=== PATIENT | female | born 1965 | race African-American/Black ===

== ENCOUNTER 2018-12-24 11:15 | Inpatient (IN) ==
[2018-12-24] MEDS ORDERED: ASPIRIN 325 MG TABLET PO STA (11:52)
[2018-12-24] MEDS ORDERED: FUROSEMIDE 100 MG/10 ML VIAL IV STA (11:52)
[2018-12-24] MEDS ORDERED: NITROGLYCERIN 2% OINT 1 INCH/GM PACK TOP STA (11:52)
[2018-12-24] MEDS ORDERED: ONDANSETRON 4 MG/2 ML VIAL IV STA (11:52)
[2018-12-24] MEDS ORDERED: hydrALAZINE 20 MG/1 ML VIAL IV STA (11:52)
[2018-12-24] MEDS ORDERED: methylPREDNISolone SOD SUC 125 MG/2 ML VIAL IV STA (11:52)
[2018-12-24] MEDS ORDERED: ALBUTEROL 2.5 MG/3 ML NEB RESP TX SCH (12:00)
[2018-12-24 12:16] LABS: Basophils % 0.1 % (0.0-0.8); Eosinophils # 0.1 10*3/uL (0.0-0.87); Eosinophils % 1.3 % (0.00-10.9); Hematocrit 33.7 VOL% (35.7-47.0); Hemoglobin 10.3 GM/DL (12.0-16.0); Immature Granulocytes % 0.3 %; Immature Granulocytes Absolute 0.02 #; Lymphocytes # 1.2 10*3/uL (1.4-4.0); Lymphocytes % 17.3 % (21.3-54.2); Mean Corpuscular HGB Conc 30.6 GM/DL (32-36); Mean Corpuscular Volume 104.3 FL (87-102); Mean Platelet Volume 12.3 FL (9.6-12.0); Monocytes % 8.7 % (1.7-12.7); Neutrophils % 72.3 % (38.7-73.9); Red Blood Count 3.23 MC/CUMM (3.8-5.5); Red Cell Distribution Width 12.7 % (9.3-17.3)
[2018-12-24 12:20] LABS: Platelet Count 97 T/CUMM (130-400)
[2018-12-24 12:27] LABS: PT Patient Result 10.7 SECS
[2018-12-24 12:38] LABS: Albumin 2.1 G/DL (3.4-5.0); Bilirubin,Total 0.5 MG/DL (0.2-1.0); Calcium 8.3 MG/DL (8.5-10.1); Total Protein 5.9 G/DL (6.4-8.3)
[2018-12-24 12:39] LABS: Anisocytosis 1+; Platelet Estimate Decreased
[2018-12-24 13:10] LABS: Apearance,Urine CLEAR (Clear); Bilirubin,Urine Negative (Negative); Blood, Urine Moderate mg/dL (Negative); Glucose,Urine (UA) Negative (Negative); Ketones,Urine Negative (Negative); Mucus,Urine Occasional /LPF (Occasional); Nitrite,Urine Negative (Negative); Protein,Urine >=500 MG/DL; RBC,Urine 33 /HPF (0-4); Squamous Epithelial Cell,Urine Occasional /HPF (0-10); Urine Color Yellow (Yellow); Urine Specific Gravity 1.014 (1.001-1.035); Urine Urobilinogen < 2.0 EU/DL (0.2-1.0)
[2018-12-24 13:18] LABS: Barbiturates Screen,Urine Negative (Negative); Benzodiazepines Screen,Urine Negative (Negative); Cannabinoid Screen,Urine Negative (Negative); Opiate Screen,Urine Negative (Negative); Phencyclidine Screen,Urine Negative (Negative)
[2018-12-24] MEDS ORDERED: niCARdipine INJ 25 MG in SODIUM CHLORIDE 0.9% 240 ML IV PRN (13:21)
[2018-12-24] MEDS ORDERED: niCARdipine 25 MG/10 ML VIAL IV ONE (13:28)
[2018-12-24] MEDS ORDERED: ONDANSETRON 4 MG/2 ML VIAL IV PRN (15:03)
[2018-12-24] MEDS ORDERED: SODIUM CHLORIDE 0.9% 1,000 ML IV SCH (15:30)
[2018-12-24] MEDS: amLODIPine 10 MG TABLET PO SCH (17:25)
[2018-12-24] MEDS: LISINOPRIL/HCTZ 20-25 MG TABLET PO SCH (18:11)
[2018-12-24] MEDS: ASPIRIN EC 81 MG TABLET PO SCH (18:11)
[2018-12-24] MEDS: POTASSIUM CHLORIDE 20 MEQ TABLET PO SCH (18:11)
[2018-12-24] MEDS: CARVEDILOL 25 MG TABLET PO SCH (20:08)
[2018-12-24] MEDS: ENOXAPARIN 40 MG/0.4 ML SYRINGE SUBCUT SCH (22:02)
[2018-12-24] MEDS: ALBUTEROL/IPRATROPIUM 3 ML NEB RESP TX PRN (22:21)
[2018-12-25 03:16] LABS: Hematocrit 32.2 VOL% (35.7-47.0); Hemoglobin 9.8 GM/DL (12.0-16.0); Immature Granulocytes % 0.6 %; Immature Granulocytes Absolute 0.04 #; Lymphocytes # 0.7 10*3/uL (1.4-4.0); Lymphocytes % 11.6 % (21.3-54.2); Mean Corpuscular HGB Conc 30.4 GM/DL (32-36); Mean Corpuscular Volume 104.5 FL (87-102); Mean Platelet Volume 12.5 FL (9.6-12.0); Monocytes % 3.6 % (1.7-12.7); Neutrophils % 84.2 % (38.7-73.9); Platelet Count 105 T/CUMM (130-400); Red Blood Count 3.08 MC/CUMM (3.8-5.5); Red Cell Distribution Width 12.8 % (9.3-17.3); White Blood Count 6.4 T/CUMM (4-12)
[2018-12-25 08:28] LABS: Calcium 8.5 MG/DL (8.5-10.1); Osmolality,Calculated 292.1 MOS/KG (273-304)
[2018-12-25] MEDS: LISINOPRIL/HCTZ 20-25 MG TABLET PO SCH (09:42)
[2018-12-25] MEDS: POTASSIUM CHLORIDE 20 MEQ TABLET PO SCH (09:42)
[2018-12-25] MEDS: ASPIRIN EC 81 MG TABLET PO SCH (09:43)
[2018-12-25] MEDS: amLODIPine 10 MG TABLET PO SCH (09:43)
[2018-12-25] MEDS: CARVEDILOL 25 MG TABLET PO SCH ×2 (09:43→18:08)
[2018-12-25 15:28] LABS: Protein/Creatinine Ratio,Urine 5.4 RATIO
[2018-12-25] MEDS: ENOXAPARIN 40 MG/0.4 ML SYRINGE SUBCUT SCH (21:43)
[2018-12-25] MEDS: ALBUTEROL/IPRATROPIUM 3 ML NEB RESP TX PRN (22:50)
[2018-12-26] MEDS: POTASSIUM CHLORIDE 20 MEQ TABLET PO SCH (09:06)
[2018-12-26] MEDS: ASPIRIN EC 81 MG TABLET PO SCH (09:06)
[2018-12-26] MEDS: amLODIPine 10 MG TABLET PO SCH (09:06)
[2018-12-26] MEDS: CARVEDILOL 25 MG TABLET PO SCH (09:06)
[2018-12-26] MEDS: LISINOPRIL/HCTZ 20-25 MG TABLET PO SCH (09:12)
[2018-12-26 10:33] LABS: Calcium 8.2 MG/DL (8.5-10.1); Osmolality,Calculated 294.8 MOS/KG (273-304)
[2018-12-26 14:12] LABS: % Iron Saturation 20.2 % (18-50); Ferritin 132.3 ng/ml (8-252)
[2018-12-26] MEDS: FUROSEMIDE 40 MG/4 ML VIAL IV SCH (14:37)
[2018-12-26] MEDS: ENOXAPARIN 40 MG/0.4 ML SYRINGE SUBCUT SCH (20:56)
[2018-12-27 06:01] LABS: Basophils % 0.3 % (0.0-0.8); Eosinophils # 0.1 10*3/uL (0.0-0.87); Eosinophils % 2.3 % (0.00-10.9); Hematocrit 32.2 VOL% (35.7-47.0); Hemoglobin 9.9 GM/DL (12.0-16.0); Immature Granulocytes % 0.5 %; Immature Granulocytes Absolute 0.03 #; Lymphocytes # 2.4 10*3/uL (1.4-4.0); Lymphocytes % 38.9 % (21.3-54.2); Mean Corpuscular HGB Conc 30.7 GM/DL (32-36); Mean Corpuscular Volume 105.6 FL (87-102); Mean Platelet Volume 13.1 FL (9.6-12.0); Monocytes % 10.1 % (1.7-12.7); Neutrophils % 47.9 % (38.7-73.9); Platelet Count 93 T/CUMM (130-400); Red Blood Count 3.05 MC/CUMM (3.8-5.5); Red Cell Distribution Width 12.9 % (9.3-17.3); White Blood Count 6.1 T/CUMM (4-12)
[2018-12-27 06:33] LABS: Calcium 8.6 MG/DL (8.5-10.1); Osmolality,Calculated 291.8 MOS/KG (273-304)
[2018-12-27 06:38] LABS: Platelet Estimate Decreased
[2018-12-27 07:22] LABS: Folate 5.4 NG/ML (5.4-24.0)
[2018-12-27] MEDS: FUROSEMIDE 40 MG/4 ML VIAL IV SCH (08:37)
[2018-12-27] MEDS: ASPIRIN EC 81 MG TABLET PO SCH (08:37)
[2018-12-27] MEDS: amLODIPine 10 MG TABLET PO SCH (08:38)
[2018-12-27] MEDS: POTASSIUM CHLORIDE 20 MEQ TABLET PO SCH (08:38)
[2018-12-27 08:40] VITALS: BP 192/92
== END 2018-12-27 11:47 | disposition home or self-care (01) | DRG 304 ==
LOC: EDUNIT# → EDBD → N.ED 11:15 → SUATTDRO 15:03 → N.EDINP 17:24 → N.ICU 17:27 → N.TELES 12-25 15:09
PROVIDERS: ADMIT Internal Medicine Geriatric Medicine; ATTEND Internal Medicine

== ENCOUNTER 2019-06-24 21:40 | Inpatient (IN) ==
[2019-06-24] MEDS ORDERED: ONDANSETRON 4 MG/2 ML VIAL IV STA (22:13)
[2019-06-24] MEDS ORDERED: methylPREDNISolone SOD SUC 125 MG/2 ML VIAL IV STA (22:13)
[2019-06-24] MEDS ORDERED: FUROSEMIDE 100 MG/10 ML VIAL IV STA (22:13)
[2019-06-24] MEDS ORDERED: NITROGLYCERIN 2% OINT 1 INCH/GM PACK TOP STA (22:13)
[2019-06-24] MEDS ORDERED: ASPIRIN 325 MG TABLET PO STA (22:13)
[2019-06-24] MEDS ORDERED: hydrALAZINE 20 MG/1 ML VIAL IV STA (22:13)
[2019-06-24] MEDS ORDERED: ALBUTEROL/IPRATROPIUM 3 ML NEB RESP TX STA (22:13)
[2019-06-24 22:42] LABS: Basophils % 0.3 % (0.0-0.8); Eosinophils # 0.2 10*3/uL (0.0-0.87); Eosinophils % 2.2 % (0.00-10.9); Hematocrit 29.9 VOL% (35.7-47.0); Immature Granulocytes % 0.3 %; Immature Granulocytes Absolute 0.02 #; Lymphocytes % 28.5 % (21.3-54.2); Mean Corpuscular HGB Conc 30.1 GM/DL (32-36); Mean Corpuscular Volume 106.4 FL (87-102); Mean Platelet Volume 12.4 FL (9.6-12.0); Monocytes % 6.1 % (1.7-12.7); Neutrophils % 62.6 % (38.7-73.9); Red Blood Count 2.81 MC/CUMM (3.8-5.5); Red Cell Distribution Width 14.2 % (9.3-17.3); White Blood Count 6.9 T/CUMM (4-12)
[2019-06-24 22:42] LABS: ABG HCO3 20.3 MMOL/L (20-26); ABG Oxygen Saturation 97.9 % (95-100); ABG PCO2 32.4 MM HG (35-48); ABG PH 7.383 (7.35-7.45); ABG TCO2 17.7 MMOL/L (23-27); Allen Test Positive
[2019-06-24 22:45] LABS: Platelet Count 97 T/CUMM (130-400)
[2019-06-24 22:49] LABS: INR 1.1; PT Patient Result 11.6 SECS (9.6-12.2)
[2019-06-24 23:03] LABS: Alanine Aminotransferase 28 U/L (13-56); Albumin 1.6 G/DL (3.4-5.0); Alkaline Phosphatase 89 U/L (45-117); Aspartate Amino Transferase 43 U/L (0-37); Bilirubin,Total < 0.39 MG/DL (0.2-1.0); Blood Urea Nitrogen 58 MG/DL (7-18); Estimated Glom Filtration Rate 19 ML/MIN; Glucose 95 MG/DL (74-106); Osmolality,Calculated 301.8 MOS/KG (273-304); Total Protein 6.2 G/DL (6.4-8.3)
[2019-06-24 23:18] LABS: Hypochromasia 1+; Platelet Estimate Adequate; Polychromasia Few
[2019-06-24 23:41] LABS: Apearance,Urine CLEAR (Clear); Bacteria,Urine Occasional /HPF (Few); Bilirubin,Urine Negative (Negative); Blood, Urine Moderate mg/dL (Negative); Glucose,Urine (UA) Negative (Negative); Hyaline Casts,Urine 3 /LPF (0-3); Ketones,Urine Negative (Negative); Mucus,Urine Occasional /LPF (Occasional); Nitrite,Urine Negative (Negative); Protein,Urine >=500 MG/DL; RBC,Urine 57 /HPF (0-4); Squamous Epithelial Cell,Urine Occasional /HPF (0-10); Urine Color Yellow (Yellow); Urine Specific Gravity 1.012 (1.001-1.035); Urine Urobilinogen < 2.0 EU/DL (0.2-1.0); WBC,Urine 3 /HPF (0-6)
[2019-06-24 23:44] LABS: Barbiturates Screen,Urine Negative (Negative); Benzodiazepines Screen,Urine Negative (Negative); Cannabinoid Screen,Urine Negative (Negative); Opiate Screen,Urine Negative (Negative); Phencyclidine Screen,Urine Negative (Negative)
[2019-06-24] MEDS ORDERED: niCARdipine INJ 25 MG in SODIUM CHLORIDE 0.9% 240 ML IV PRN (23:59)
[2019-06-25] MEDS ORDERED: ONDANSETRON 4 MG/2 ML VIAL IV PRN (01:56)
[2019-06-25] MEDS ORDERED: ALBUTEROL 2.5 MG/3 ML NEB RESP TX PRN (01:56)
[2019-06-25] MEDS ORDERED: ALBUTEROL/IPRATROPIUM 3 ML NEB RESP TX PRN (01:56)
[2019-06-25] MEDS ORDERED: MAGNESIUM SULF RIDER 4 GM in PREMIX 1 EACH IV PRN (02:01)
[2019-06-25] MEDS ORDERED: MAGNESIUM SULF RIDER 2 GM in PREMIX 1 EACH IV PRN (02:01)
[2019-06-25 07:01] LABS: Basophils % 0.2 % (0.0-0.8); Hematocrit 30.5 VOL% (35.7-47.0); Hemoglobin 9.4 GM/DL (12.0-16.0); Immature Granulocytes % 0.6 %; Immature Granulocytes Absolute 0.04 #; Lymphocytes % 16.6 % (21.3-54.2); Mean Corpuscular HGB Conc 30.8 GM/DL (32-36); Mean Corpuscular Volume 105.2 FL (87-102); Neutrophils % 81.6 % (38.7-73.9); Platelet Count 106 T/CUMM (130-400); White Blood Count 6.3 T/CUMM (4-12)
[2019-06-25] MEDS: ASPIRIN EC 81 MG TABLET PO SCH ×2 (07:28→08:16)
[2019-06-25] MEDS: amLODIPine 10 MG TABLET PO SCH ×2 (07:28→08:16)
[2019-06-25] MEDS: PANTOPRAZOLE 40 MG TABLET PO SCH ×2 (07:28→08:16)
[2019-06-25] MEDS: FUROSEMIDE 40 MG/4 ML VIAL IV SCH ×2 (07:29→16:29)
[2019-06-25 07:33] LABS: Albumin 1.7 G/DL (3.4-5.0); Bilirubin,Total 0.8 MG/DL (0.2-1.0); Osmolality,Calculated 308.7 MOS/KG (273-304); Total Protein 6.4 G/DL (6.4-8.3)
[2019-06-25] MEDS ORDERED: hydrALAZINE 20 MG/1 ML VIAL IV ONE (08:24)
[2019-06-25] MEDS: ACETAMINOPHEN 325 MG TABLET PO PRN ×2 (08:45→20:23)
[2019-06-25] MEDS: ENOXAPARIN 30 MG/0.3 ML SYRINGE SUBCUT SCH (08:46)
[2019-06-26] MEDS ORDERED: hydrALAZINE 20 MG/1 ML VIAL IV PRN (00:32)
[2019-06-26 05:30] LABS: Basophils % 0.1 % (0.0-0.8); Hemoglobin 8.7 GM/DL (12.0-16.0); Immature Granulocytes % 0.4 %; Immature Granulocytes Absolute 0.05 #; Lymphocytes % 17.6 % (21.3-54.2); Mean Corpuscular HGB Conc 31.1 GM/DL (32-36); Mean Corpuscular Volume 104.9 FL (87-102); Mean Platelet Volume 11.8 FL (9.6-12.0); Monocytes % 7.4 % (1.7-12.7); Neutrophils % 74.5 % (38.7-73.9); Platelet Count 123 T/CUMM (130-400); Red Blood Count 2.67 MC/CUMM (3.8-5.5); Red Cell Distribution Width 14.3 % (9.3-17.3); White Blood Count 11.6 T/CUMM (4-12)
[2019-06-26 05:44] LABS: Calcium 7.9 MG/DL (8.5-10.1); Osmolality,Calculated 304.1 MOS/KG (273-304)
[2019-06-26 06:02] LABS: Platelet Estimate Adequate
[2019-06-26 06:03] LABS: Anisocytosis 1+; Macrocytosis 2+; Polychromasia Slight
[2019-06-26] MEDS: FUROSEMIDE 40 MG/4 ML VIAL IV SCH ×2 (08:42→15:45)
[2019-06-26] MEDS: amLODIPine 10 MG TABLET PO SCH (08:43)
[2019-06-26] MEDS: ASPIRIN EC 81 MG TABLET PO SCH (08:43)
[2019-06-26] MEDS: PANTOPRAZOLE 40 MG TABLET PO SCH (08:43)
[2019-06-26] MEDS: ENOXAPARIN 30 MG/0.3 ML SYRINGE SUBCUT SCH (08:43)
[2019-06-26] MEDS ORDERED: FUROSEMIDE 40 MG/4 ML VIAL IV ONE (12:28)
[2019-06-26] MEDS: metOLazone 5 MG TABLET PO SCH (13:16)
[2019-06-26] MEDS: POTASSIUM CHLORIDE 20 MEQ TABLET PO SCH (15:48)
[2019-06-26] MEDS ORDERED: MAGNESIUM CITRATE 300 ML BOTTLE PO ONE (16:26)
[2019-06-26] MEDS ORDERED: MAGNESIUM CITRATE 300 ML BOTTLE PO PRN (16:26)
[2019-06-26] MEDS ORDERED: amLODIPine 10 MG TABLET PO SCH (21:00)
[2019-06-26] MEDS: DOCUSATE/SENNA 50-8.6 MG TABLET PO SCH (22:20)
[2019-06-27] MEDS: ASPIRIN EC 81 MG TABLET PO SCH (10:00)
[2019-06-27] MEDS: FUROSEMIDE 40 MG/4 ML VIAL IV SCH ×2 (10:00→15:53)
[2019-06-27] MEDS: ENOXAPARIN 30 MG/0.3 ML SYRINGE SUBCUT SCH (10:00)
[2019-06-27] MEDS: POTASSIUM CHLORIDE 20 MEQ TABLET PO SCH (10:01)
[2019-06-27] MEDS: metOLazone 5 MG TABLET PO SCH (10:01)
[2019-06-27] MEDS: PANTOPRAZOLE 40 MG TABLET PO SCH (10:01)
[2019-06-27] MEDS: DOCUSATE/SENNA 50-8.6 MG TABLET PO SCH (10:02)
[2019-06-27 15:33] VITALS: BP 136/71
== END 2019-06-27 16:49 | disposition home or self-care (01) | DRG 291 ==
LOC: EDSEX → EDUNIT# → EDBD → N.ED 21:40 → SUATTDRO 06-25 01:56 → N.EDINP 06-25 01:56 → N.CC 06-25 02:20 → N.5E 06-26 15:07
PROVIDERS: ADMIT Family Medicine; ATTEND Internal Medicine

== ENCOUNTER 2019-07-26 15:19 | Inpatient (IN) ==
[2019-07-26 15:56] LABS: Basophils % 0.2 % (0.0-0.8); Eosinophils # 0.1 10*3/uL (0.0-0.87); Eosinophils % 0.9 % (0.00-10.9); Hematocrit 31.9 VOL% (35.7-47.0); Immature Granulocytes % 0.6 %; Immature Granulocytes Absolute 0.05 #; Lymphocytes # 1.4 10*3/uL (1.4-4.0); Lymphocytes % 15.5 % (21.3-54.2); Mean Corpuscular HGB Conc 31.3 GM/DL (32-36); Mean Corpuscular Volume 101.3 FL (87-102); Mean Platelet Volume 12.4 FL (9.6-12.0); Monocytes % 6.6 % (1.7-12.7); Neutrophils % 76.2 % (38.7-73.9); Platelet Count 138 T/CUMM (130-400); Red Blood Count 3.15 MC/CUMM (3.8-5.5); Red Cell Distribution Width 13.2 % (9.3-17.3); White Blood Count 8.8 T/CUMM (4-12)
[2019-07-26 16:02] LABS: PT Patient Result 10.7 SECS (9.6-12.2)
[2019-07-26 16:08] LABS: Calcium 7.4 MG/DL (8.5-10.1); Osmolality,Calculated 293.3 MOS/KG (273-304)
[2019-07-26 16:10] LABS: Barbiturates Screen,Urine Negative (Negative); Benzodiazepines Screen,Urine Negative (Negative); Cannabinoid Screen,Urine Negative (Negative); Opiate Screen,Urine Negative (Negative); Phencyclidine Screen,Urine Negative (Negative)
[2019-07-26 16:17] LABS: Apearance,Urine CLEAR (Clear); Bacteria,Urine Occasional /HPF (Few); Bilirubin,Urine Negative (Negative); Blood, Urine Small mg/dL (Negative); Glucose,Urine (UA) 50 mg/dL (Negative); Ketones,Urine Negative (Negative); Mucus,Urine Occasional /LPF (Occasional); Nitrite,Urine Negative (Negative); Protein,Urine 100 MG/DL; RBC,Urine 31 /HPF (0-4); Squamous Epithelial Cell,Urine Occasional /HPF (0-10); Urine Color Yellow (Yellow); Urine Specific Gravity 1.015 (1.001-1.035); Urine Urobilinogen < 2.0 EU/DL (0.2-1.0); WBC,Urine 5 /HPF (0-6)
[2019-07-26] MEDS ORDERED: ASPIRIN CHEW 81 MG TABLET PO STA (16:26)
[2019-07-26] MEDS ORDERED: CLOPIDOGREL 300 MG TABLET PO STA (16:27)
[2019-07-26] MEDS ORDERED: ENOXAPARIN 100 MG/ML SYRINGE SUBCUT STA (16:27)
[2019-07-26] MEDS ORDERED: FUROSEMIDE 100 MG/10 ML VIAL IV STA (16:29)
[2019-07-26] MEDS ORDERED: LABETALOL 20 MG/4 ML SYRINGE IV STA (17:19)
[2019-07-26] MEDS ORDERED: hydrALAZINE 20 MG/1 ML VIAL IV STA (18:04)
[2019-07-26] MEDS ORDERED: niCARdipine INJ 25 MG in SODIUM CHLORIDE 0.9% 240 ML IV PRN ×2 (21:11→22:06)
[2019-07-26] MEDS ORDERED: DOCUSATE SODIUM 100 MG CAPSULE PO PRN (22:06)
[2019-07-26] MEDS ORDERED: ALBUTEROL 2.5 MG/3 ML NEB RESP TX PRN ×2 (22:06)
[2019-07-26] MEDS ORDERED: ONDANSETRON 4 MG/2 ML VIAL IV PRN (22:06)
[2019-07-26] MEDS ORDERED: diphenhydrAMINE CAP 25 MG CAPSULE PO PRN (22:06)
[2019-07-26] MEDS: carvediloL 25 MG TABLET PO SCH (22:37)
[2019-07-26] MEDS: cefTRIAXone 1,000 MG in SYRINGE 1 EACH IV SCH (22:41)
[2019-07-26] MEDS ORDERED: MAGNESIUM SULF RIDER 4 GM in PREMIX 1 EACH IV PRN (23:14)
[2019-07-27] MEDS: ALBUTEROL/IPRATROPIUM 3 ML NEB RESP TX SCH ×4 (00:50→19:28)
[2019-07-27] MEDS: AZITHROMYCIN INJ 500 MG in SODIUM CHLORIDE 0.9% 250 ML IV SCH ×2 (00:55→21:37)
[2019-07-27] MEDS: MAGNESIUM SULF RIDER 2 GM in PREMIX 1 EACH IV PRN ×2 (00:55→03:04)
[2019-07-27 03:29] LABS: Basophils % 0.2 % (0.0-0.8); Eosinophils # 0.1 10*3/uL (0.0-0.87); Eosinophils % 1.6 % (0.00-10.9); Immature Granulocytes % 0.4 %; Immature Granulocytes Absolute 0.02 #; Lymphocytes # 1.5 10*3/uL (1.4-4.0); Lymphocytes % 29.9 % (21.3-54.2); Mean Corpuscular HGB Conc 30.8 GM/DL (32-36); Mean Corpuscular Volume 102.4 FL (87-102); Mean Platelet Volume 11.9 FL (9.6-12.0); Monocytes % 10.6 % (1.7-12.7); Neutrophils % 57.3 % (38.7-73.9); Platelet Count 108 T/CUMM (130-400); Red Blood Count 2.54 MC/CUMM (3.8-5.5); Red Cell Distribution Width 13.1 % (9.3-17.3); White Blood Count 4.9 T/CUMM (4-12)
[2019-07-27 03:59] LABS: Albumin 1.4 G/DL (3.4-5.0); Bilirubin,Total 1.4 MG/DL (0.2-1.0); Calcium 7.5 MG/DL (8.5-10.1); Osmolality,Calculated 294.1 MOS/KG (273-304); Risk Ratio 3.1; Thyroid Stimulating Hormone 3.06 uIU/ml (0.358-3.74); Total Protein 5.4 G/DL (6.4-8.3); VLDL CHOLESTEROL 37.8 MG/DL
[2019-07-27] MEDS: POTASSIUM CHLORIDE 20 MEQ TABLET PO PRN ×5 (06:37→21:32)
[2019-07-27] MEDS: ASPIRIN EC 81 MG TABLET PO SCH (08:32)
[2019-07-27] MEDS: carvediloL 25 MG TABLET PO SCH ×2 (08:32→17:16)
[2019-07-27] MEDS: amLODIPine 10 MG TABLET PO SCH (08:32)
[2019-07-27] MEDS: FUROSEMIDE 40 MG/4 ML VIAL IV SCH ×2 (08:34→15:26)
[2019-07-27] MEDS: SPIRONOLACTONE 25 MG TABLET PO SCH ×2 (10:33→21:31)
[2019-07-27 15:08] LABS: Hematocrit 29.2 VOL% (35.7-47.0); Hemoglobin 8.9 GM/DL (12.0-16.0)
[2019-07-27] MEDS ORDERED: ENOXAPARIN 30 MG/0.3 ML SYRINGE SUBCUT SCH (16:00)
[2019-07-27] MEDS: ACETAMINOPHEN 325 MG TABLET PO PRN (17:15)
[2019-07-27] MEDS: cefTRIAXone 1,000 MG in SYRINGE 1 EACH IV SCH (21:32)
[2019-07-28] MEDS: ALBUTEROL/IPRATROPIUM 3 ML NEB RESP TX SCH ×4 (01:44→22:17)
[2019-07-28] MEDS: hydrALAZINE 20 MG/1 ML VIAL IV PRN (03:47)
[2019-07-28 05:50] LABS: Basophils % 0.2 % (0.0-0.8); Eosinophils # 0.1 10*3/uL (0.0-0.87); Eosinophils % 1.9 % (0.00-10.9); Hematocrit 26.3 VOL% (35.7-47.0); Hemoglobin 8.1 GM/DL (12.0-16.0); Immature Granulocytes % 0.4 %; Immature Granulocytes Absolute 0.02 #; Lymphocytes # 1.6 10*3/uL (1.4-4.0); Lymphocytes % 30.9 % (21.3-54.2); Mean Corpuscular HGB Conc 30.8 GM/DL (32-36); Mean Corpuscular Volume 101.9 FL (87-102); Mean Platelet Volume 12.4 FL (9.6-12.0); Monocytes % 10.6 % (1.7-12.7); Platelet Count 117 T/CUMM (130-400); Red Blood Count 2.58 MC/CUMM (3.8-5.5); Red Cell Distribution Width 13.2 % (9.3-17.3); White Blood Count 5.2 T/CUMM (4-12)
[2019-07-28 06:26] LABS: Calcium 7.9 MG/DL (8.5-10.1); Osmolality,Calculated 292.3 MOS/KG (273-304)
[2019-07-28] MEDS: SPIRONOLACTONE 25 MG TABLET PO SCH ×2 (08:25→22:02)
[2019-07-28] MEDS: ASPIRIN EC 81 MG TABLET PO SCH (08:25)
[2019-07-28] MEDS: amLODIPine 10 MG TABLET PO SCH (08:25)
[2019-07-28] MEDS: FUROSEMIDE 40 MG/4 ML VIAL IV SCH ×2 (08:25→15:04)
[2019-07-28] MEDS: carvediloL 25 MG TABLET PO SCH ×2 (08:25→17:12)
[2019-07-28] MEDS ORDERED: MAGNESIUM CITRATE 300 ML BOTTLE PO ONE (09:16)
[2019-07-28] MEDS ORDERED: OXYMETAZOLINE 0.05% NASAL SPRAY 15 ML BOTTLE BOTH NARES PRN (10:41)
[2019-07-28] MEDS ORDERED: SODIUM CHLORIDE 0.9% 1,000 ML IV PRN (12:40)
[2019-07-28 13:40] LABS: Troponin I 0.147 NG/ML (0.00-0.045)
[2019-07-28] MEDS ORDERED: VANCOMYCIN INJ 1,250 MG in SODIUM CHLORIDE 0.9% 250 ML IV SCH (14:00)
[2019-07-28] MEDS: cefTRIAXone 1,000 MG in SYRINGE 1 EACH IV SCH (22:01)
[2019-07-28] MEDS: AZITHROMYCIN 250 MG TABLET PO SCH (22:02)
[2019-07-29] MEDS: ALBUTEROL/IPRATROPIUM 3 ML NEB RESP TX SCH ×4 (01:17→19:11)
[2019-07-29 04:57] LABS: Basophils % 0.3 % (0.0-0.8); Eosinophils # 0.1 10*3/uL (0.0-0.87); Eosinophils % 1.8 % (0.00-10.9); Hematocrit 32.3 VOL% (35.7-47.0); Hemoglobin 10.3 GM/DL (12.0-16.0); Immature Granulocytes % 0.3 %; Immature Granulocytes Absolute 0.02 #; Lymphocytes # 1.6 10*3/uL (1.4-4.0); Lymphocytes % 25.3 % (21.3-54.2); Mean Corpuscular HGB Conc 31.9 GM/DL (32-36); Mean Corpuscular Volume 98.8 FL (87-102); Mean Platelet Volume 12.6 FL (9.6-12.0); Monocytes % 12.1 % (1.7-12.7); Neutrophils % 60.2 % (38.7-73.9); Platelet Count 110 T/CUMM (130-400); Red Blood Count 3.27 MC/CUMM (3.8-5.5); Red Cell Distribution Width 14.6 % (9.3-17.3); White Blood Count 6.2 T/CUMM (4-12)
[2019-07-29 05:21] LABS: Troponin I 0.134 NG/ML (0.00-0.045)
[2019-07-29 05:22] LABS: Calcium 7.9 MG/DL (8.5-10.1); Osmolality,Calculated 292.3 MOS/KG (273-304)
[2019-07-29] MEDS: ACETAMINOPHEN 325 MG TABLET PO PRN (07:57)
[2019-07-29] MEDS: ASPIRIN EC 81 MG TABLET PO SCH (08:56)
[2019-07-29] MEDS: carvediloL 25 MG TABLET PO SCH ×2 (08:56→16:47)
[2019-07-29] MEDS: SPIRONOLACTONE 25 MG TABLET PO SCH ×2 (08:56→21:23)
[2019-07-29] MEDS: amLODIPine 10 MG TABLET PO SCH (08:57)
[2019-07-29] MEDS: FUROSEMIDE 40 MG/4 ML VIAL IV SCH ×2 (08:57→16:47)
[2019-07-29] MEDS: hydrALAZINE 20 MG/1 ML VIAL IV PRN (10:04)
[2019-07-29] MEDS: LORazepam 2 MG/1 ML VIAL IV PRN (21:22)
[2019-07-29] MEDS: AZITHROMYCIN 250 MG TABLET PO SCH (21:23)
[2019-07-29] MEDS: SODIUM CHLORIDE 0.65% NASAL SPRAY 45 ML BOTTLE BOTH NARES SCH (21:24)
[2019-07-29] MEDS: cefTRIAXone 1,000 MG in SYRINGE 1 EACH IV SCH (23:02)
[2019-07-30] MEDS: ALBUTEROL/IPRATROPIUM 3 ML NEB RESP TX SCH ×4 (00:51→21:28)
[2019-07-30] MEDS ORDERED: hydrALAZINE 20 MG/1 ML VIAL IV PRN (04:20)
[2019-07-30] MEDS: FUROSEMIDE 40 MG/4 ML VIAL IV SCH ×2 (08:50→17:02)
[2019-07-30] MEDS: SPIRONOLACTONE 25 MG TABLET PO SCH ×2 (08:53→21:09)
[2019-07-30] MEDS: ASPIRIN EC 81 MG TABLET PO SCH (08:54)
[2019-07-30] MEDS: carvediloL 25 MG TABLET PO SCH ×2 (08:54→17:05)
[2019-07-30] MEDS: SODIUM CHLORIDE 0.65% NASAL SPRAY 45 ML BOTTLE BOTH NARES SCH ×2 (08:54→21:09)
[2019-07-30] MEDS: amLODIPine 10 MG TABLET PO SCH (08:54)
[2019-07-30] MEDS: ACETAMINOPHEN 325 MG TABLET PO PRN (10:38)
[2019-07-30] MEDS: VANCOMYCIN INJ 1,500 MG in SODIUM CHLORIDE 0.9% 500 ML IV SCH (10:38)
[2019-07-30] MEDS: AZITHROMYCIN 250 MG TABLET PO SCH (21:08)
[2019-07-30] MEDS: LORazepam 2 MG/1 ML VIAL IV PRN (21:09)
[2019-07-31] MEDS: cefTRIAXone 1,000 MG in SYRINGE 1 EACH IV SCH (00:11)
[2019-07-31] MEDS: ALBUTEROL/IPRATROPIUM 3 ML NEB RESP TX SCH ×3 (01:42→12:44)
[2019-07-31] MEDS: FUROSEMIDE 40 MG/4 ML VIAL IV SCH (09:13)
[2019-07-31] MEDS: ASPIRIN EC 81 MG TABLET PO SCH (09:13)
[2019-07-31] MEDS: amLODIPine 10 MG TABLET PO SCH (09:13)
[2019-07-31] MEDS: SPIRONOLACTONE 25 MG TABLET PO SCH (09:13)
[2019-07-31] MEDS: carvediloL 25 MG TABLET PO SCH (09:14)
[2019-07-31] MEDS: SODIUM CHLORIDE 0.65% NASAL SPRAY 45 ML BOTTLE BOTH NARES SCH (09:14)
[2019-07-31 10:20] LABS: Ferritin 106.8 ng/ml (8-252)
[2019-07-31] MEDS: VANCOMYCIN INJ 1,500 MG in SODIUM CHLORIDE 0.9% 500 ML IV SCH (11:22)
[2019-07-31 11:40] LABS: Hepatitis B Core IgM Quant 0.63 Index; Hepatitis B Surface Ag Quant < 0.10 Index; Hepatitis B Surface Ag Result Negative (Negative); Hepatitis C Virus Ab Quant > 11.00 Index; Hepatitis C Virus Ab Result Positive (Negative)
[2019-07-31 11:56] VITALS: BP 150/86
== END 2019-07-31 15:20 | disposition home or self-care (01) | DRG 291 ==
LOC: EDUNIT# → EDBD → N.ED 15:19 → N.EDINP 20:00 → SUATTDRO 20:00 → N.ICU 21:50 → N.TELEN 07-27 16:09
PROVIDERS: ADMIT Family Medicine; ATTEND Internal Medicine

== ENCOUNTER 2019-10-29 05:13 | Inpatient (IN) ==
[2019-10-29] MEDS ORDERED: ASPIRIN 325 MG TABLET PO STA (05:30)
[2019-10-29] MEDS ORDERED: methylPREDNISolone SOD SUC 125 MG/2 ML VIAL IV STA (05:30)
[2019-10-29] MEDS ORDERED: ONDANSETRON 4 MG/2 ML VIAL IV STA (05:30)
[2019-10-29] MEDS ORDERED: ALBUTEROL/IPRATROPIUM 3 ML NEB RESP TX STA (05:30)
[2019-10-29] MEDS ORDERED: FUROSEMIDE 100 MG/10 ML VIAL IV STA (05:30)
[2019-10-29] MEDS ORDERED: NITROGLYCERIN 2% OINT 1 INCH/GM PACK TOP STA (05:30)
[2019-10-29] MEDS ORDERED: hydrALAZINE 20 MG/1 ML VIAL IV STA ×2 (05:36→08:20)
[2019-10-29 05:57] LABS: Basophils % 0.1 % (0.0-0.8); Eosinophils # 0.2 10*3/uL (0.0-0.87); Eosinophils % 2.8 % (0.00-10.9); Hematocrit 22.8 VOL% (35.7-47.0); Hemoglobin 6.8 GM/DL (12.0-16.0); Immature Granulocytes Absolute 0.07 #; Lymphocytes # 1.6 10*3/uL (1.4-4.0); Lymphocytes % 22.8 % (21.3-54.2); Mean Corpuscular HGB Conc 29.8 GM/DL (32-36); Mean Corpuscular Volume 109.6 FL (87-102); Mean Platelet Volume 10.8 FL (9.6-12.0); Monocytes % 9.8 % (1.7-12.7); NRBC # 0.02 10*3/uL; Neutrophils % 63.5 % (38.7-73.9); Platelet Count 189 T/CUMM (130-400); Red Blood Count 2.08 MC/CUMM (3.8-5.5); White Blood Count 7.1 T/CUMM (4-12)
[2019-10-29 06:11] LABS: PT Patient Result 10.9 SECS (9.8-11.9)
[2019-10-29 06:58] LABS: Alanine Aminotransferase 25 U/L (13-56); Albumin 1.6 G/DL (3.4-5.0); Alkaline Phosphatase 77 U/L (45-117); Aspartate Amino Transferase 27 U/L (0-37); Bilirubin,Total < 0.39 MG/DL (0.2-1.0); Blood Urea Nitrogen 74 MG/DL (7-18); Calcium 7.1 MG/DL (8.5-10.1); Estimated Glom Filtration Rate 7 ML/MIN; Glucose 96 MG/DL (74-106); Osmolality,Calculated 298.5 MOS/KG (273-304)
[2019-10-29] MEDS ORDERED: DEXTROSE 50% 25 GM/50 ML VIAL IV STA (07:05)
[2019-10-29] MEDS ORDERED: SODIUM BICARBONATE 50 MEQ/50 ML VIAL IV STA (07:05)
[2019-10-29] MEDS ORDERED: CALCIUM CHLORIDE 1,000 MG/10 ML SYRINGE IV STA (07:05)
[2019-10-29] MEDS ORDERED: INSULIN REGULAR 100 UNIT/ML IV ONE (07:06)
[2019-10-29 07:12] LABS: Amorphous Crystals,Urine Occasional /HPF (Few); Apearance,Urine CLEAR (Clear); Bilirubin,Urine Negative (Negative); Blood, Urine Small mg/dL (Negative); Glucose,Urine (UA) 50 mg/dL (Negative); Ketones,Urine Negative (Negative); Nitrite,Urine Negative (Negative); Protein,Urine >=500 MG/DL; RBC,Urine 35 /HPF (0-4); Squamous Epithelial Cell,Urine Occasional /HPF (0-10); Urine Color Yellow (Yellow); Urine Specific Gravity 1.015 (1.001-1.035); Urine Urobilinogen < 2.0 EU/DL (0.2-1.0); WBC,Urine 6 /HPF (0-6)
[2019-10-29 07:15] LABS: Barbiturates Screen,Urine Negative (Negative); Benzodiazepines Screen,Urine Negative (Negative); Cannabinoid Screen,Urine Negative (Negative); Opiate Screen,Urine Negative (Negative); Phencyclidine Screen,Urine Negative (Negative)
[2019-10-29] MEDS ORDERED: DEXTROSE 50% 25 GM/50 ML SYRINGE IV ONE (07:20)
[2019-10-29] MEDS ORDERED: DOCUSATE SODIUM 100 MG CAPSULE PO PRN (08:20)
[2019-10-29] MEDS ORDERED: GLUCAGON 1 MG VIAL IM PRN (08:20)
[2019-10-29] MEDS ORDERED: guaiFENesin/DM ER 600-30 MG TABLET PO PRN (08:20)
[2019-10-29] MEDS ORDERED: NICOTINE 21 MG/24 HR PATCH TRANSDERM PRN (08:20)
[2019-10-29] MEDS ORDERED: DEXTROSE 10% 250 ML BAG IV PRN (08:20)
[2019-10-29] MEDS ORDERED: MAGNESIUM SULF RIDER 4 GM in PREMIX 1 EACH IV PRN (08:20)
[2019-10-29] MEDS ORDERED: MAGNESIUM SULF RIDER 2 GM in PREMIX 1 EACH IV PRN (08:20)
[2019-10-29] MEDS ORDERED: POTASSIUM CHLORIDE 20 MEQ TABLET PO PRN (08:20)
[2019-10-29] MEDS ORDERED: FUROSEMIDE 20 MG/2 ML VIAL IV PRN (08:56)
[2019-10-29] MEDS ORDERED: SODIUM CHLORIDE 0.9% 1,000 ML IV PRN (08:56)
[2019-10-29] MEDS: carvediloL 6.25 MG TABLET PO SCH ×2 (10:41→21:17)
[2019-10-29] MEDS: ENOXAPARIN 30 MG/0.3 ML SYRINGE SUBCUT SCH (10:42)
[2019-10-29] MEDS: PANTOPRAZOLE 40 MG TABLET PO SCH (10:42)
[2019-10-29] MEDS: ALBUTEROL/IPRATROPIUM 3 ML NEB RESP TX SCH ×2 (13:05→18:30)
[2019-10-29] MEDS: FUROSEMIDE 40 MG/4 ML VIAL IV SCH (16:02)
[2019-10-29] MEDS: hydrALAZINE 20 MG/1 ML VIAL IV PRN ×2 (16:03→20:01)
[2019-10-29] MEDS: MORPHINE 4 MG/1 ML VIAL IV PRN (21:15)
[2019-10-29] MEDS: ONDANSETRON 4 MG/2 ML VIAL IV PRN (21:15)
[2019-10-30] MEDS: ALBUTEROL/IPRATROPIUM 3 ML NEB RESP TX SCH ×4 (01:00→20:09)
[2019-10-30] MEDS: hydrALAZINE 20 MG/1 ML VIAL IV PRN ×3 (01:56→17:40)
[2019-10-30] MEDS: ONDANSETRON 4 MG/2 ML VIAL IV PRN (05:27)
[2019-10-30] MEDS: MORPHINE 4 MG/1 ML VIAL IV PRN ×2 (05:27→17:48)
[2019-10-30 06:38] LABS: Basophils % 0.2 % (0.0-0.8); Eosinophils # 0.1 10*3/uL (0.0-0.87); Eosinophils % 1.2 % (0.00-10.9); Hematocrit 28.4 VOL% (35.7-47.0); Immature Granulocytes % 1.3 %; Immature Granulocytes Absolute 0.13 #; Lymphocytes # 2.2 10*3/uL (1.4-4.0); Lymphocytes % 21.3 % (21.3-54.2); Mean Corpuscular HGB Conc 31.3 GM/DL (32-36); Mean Corpuscular Volume 101.8 FL (87-102); Mean Platelet Volume 10.8 FL (9.6-12.0); Monocytes % 10.5 % (1.7-12.7); NRBC # 0.02 10*3/uL; Neutrophils % 65.5 % (38.7-73.9); Platelet Count 179 T/CUMM (130-400)
[2019-10-30 06:40] LABS: Red Blood Count 2.79 MC/CUMM (3.8-5.5); White Blood Count 10.2 T/CUMM (4-12)
[2019-10-30 06:41] LABS: Hemoglobin 8.9 GM/DL (12.0-16.0)
[2019-10-30 06:54] LABS: Albumin 1.6 G/DL (3.4-5.0); Bilirubin,Total 0.7 MG/DL (0.2-1.0); Calcium 7.8 MG/DL (8.5-10.1); Osmolality,Calculated 301.4 MOS/KG (273-304); Risk Ratio 2.41; Thyroid Stimulating Hormone 9.34 uIU/ml (0.358-3.74); Total Protein 5.8 G/DL (6.4-8.3); VLDL CHOLESTEROL 39.2 MG/DL
[2019-10-30 08:20] LABS: Hepatitis B Core IgM Quant 0.42 Index; Hepatitis B Surface Ag Quant < 0.10 Index; Hepatitis B Surface Ag Result Negative (Negative); Hepatitis C Virus Ab Quant > 11.00 Index; Hepatitis C Virus Ab Result Positive (Negative)
[2019-10-30] MEDS ORDERED: ALUM/MAG/SIMETH/LIDO VISC 1:1 30 ML BOTTLE PO ONE (08:54)
[2019-10-30] MEDS: carvediloL 6.25 MG TABLET PO SCH ×2 (09:17→21:42)
[2019-10-30] MEDS: ENOXAPARIN 30 MG/0.3 ML SYRINGE SUBCUT SCH (09:18)
[2019-10-30] MEDS: PANTOPRAZOLE 40 MG TABLET PO SCH (09:18)
[2019-10-30] MEDS: FUROSEMIDE 40 MG/4 ML VIAL IV SCH ×2 (09:18→15:11)
[2019-10-30] MEDS ORDERED: SODIUM POLYSTYRENE SULFATE 15 GM/60 ML BOTTLE PO STA (14:32)
[2019-10-31] MEDS: ALBUTEROL/IPRATROPIUM 3 ML NEB RESP TX SCH ×4 (02:05→19:37)
[2019-10-31] MEDS: hydrALAZINE 20 MG/1 ML VIAL IV PRN ×2 (02:06→07:51)
[2019-10-31] MEDS: MORPHINE 4 MG/1 ML VIAL IV PRN (07:49)
[2019-10-31 07:53] LABS: Alanine Aminotransferase 20 U/L (13-56); Albumin 1.4 G/DL (3.4-5.0); Alkaline Phosphatase 85 U/L (45-117); Aspartate Amino Transferase 27 U/L (0-37); Bilirubin,Total < 0.39 MG/DL (0.2-1.0); Blood Urea Nitrogen 73 MG/DL (7-18); Calcium 7.1 MG/DL (8.5-10.1); Estimated Glom Filtration Rate 8 ML/MIN; Glucose 92 MG/DL (74-106); Osmolality,Calculated 296.7 MOS/KG (273-304); Total Protein 5.4 G/DL (6.4-8.3)
[2019-10-31 07:56] LABS: Basophils % 0.4 % (0.0-0.8); Eosinophils # 0.2 10*3/uL (0.0-0.87); Eosinophils % 2.2 % (0.00-10.9); Hematocrit 25.6 VOL% (35.7-47.0); Hemoglobin 7.9 GM/DL (12.0-16.0); Immature Granulocytes Absolute 0.17 #; Lymphocytes # 1.8 10*3/uL (1.4-4.0); Lymphocytes % 21.8 % (21.3-54.2); Mean Corpuscular HGB Conc 30.9 GM/DL (32-36); Mean Corpuscular Volume 104.9 FL (87-102); Mean Platelet Volume 10.4 FL (9.6-12.0); NRBC # 0.02 10*3/uL; Neutrophils % 64.6 % (38.7-73.9); Platelet Count 156 T/CUMM (130-400); Red Blood Count 2.44 MC/CUMM (3.8-5.5); Red Cell Distribution Width 17.6 % (9.3-17.3); White Blood Count 8.3 T/CUMM (4-12)
[2019-10-31 08:48] LABS: % Iron Saturation 24.9 % (18-50); Ferritin 139.5 ng/ml (8-252)
[2019-10-31 08:59] LABS: Folate 1.8 NG/ML (5.4-24.0)
[2019-10-31] MEDS ORDERED: amLODIPine 10 MG TABLET PO SCH (09:00)
[2019-10-31] MEDS: ENOXAPARIN 30 MG/0.3 ML SYRINGE SUBCUT SCH (09:11)
[2019-10-31] MEDS: PANTOPRAZOLE 40 MG TABLET PO SCH (09:11)
[2019-10-31] MEDS: FUROSEMIDE 40 MG/4 ML VIAL IV SCH ×2 (09:11→15:59)
[2019-10-31] MEDS: carvediloL 25 MG TABLET PO SCH ×2 (09:11→21:12)
[2019-10-31] MEDS: diphenhydrAMINE CAP 25 MG CAPSULE PO PRN ×2 (09:17→17:31)
[2019-10-31] MEDS: LACTULOSE 20 GM/30 ML UDCUP PO PRN (17:31)
[2019-11-01] MEDS: hydrALAZINE 20 MG/1 ML VIAL IV PRN ×2 (00:40→04:58)
[2019-11-01] MEDS: MORPHINE 4 MG/1 ML VIAL IV PRN (00:45)
[2019-11-01] MEDS: diphenhydrAMINE CAP 25 MG CAPSULE PO PRN ×2 (00:45→09:27)
[2019-11-01] MEDS: ALBUTEROL/IPRATROPIUM 3 ML NEB RESP TX SCH ×4 (01:21→19:52)
[2019-11-01 05:59] LABS: Basophils % 0.2 % (0.0-0.8); Eosinophils # 0.2 10*3/uL (0.0-0.87); Eosinophils % 2.5 % (0.00-10.9); Hematocrit 24.1 VOL% (35.7-47.0); Hemoglobin 7.4 GM/DL (12.0-16.0); Immature Granulocytes % 1.4 %; Immature Granulocytes Absolute 0.09 #; Lymphocytes # 1.6 10*3/uL (1.4-4.0); Lymphocytes % 25.4 % (21.3-54.2); Mean Corpuscular HGB Conc 30.7 GM/DL (32-36); Mean Corpuscular Volume 103.4 FL (87-102); Mean Platelet Volume 10.7 FL (9.6-12.0); Monocytes % 8.1 % (1.7-12.7); Neutrophils % 62.4 % (38.7-73.9); Platelet Count 138 T/CUMM (130-400); Red Blood Count 2.33 MC/CUMM (3.8-5.5); Red Cell Distribution Width 17.3 % (9.3-17.3); White Blood Count 6.3 T/CUMM (4-12)
[2019-11-01 09:23] LABS: Albumin 1.4 G/DL (3.4-5.0); Blood Urea Nitrogen 75 MG/DL (7-18); Calcium 7.4 MG/DL (8.5-10.1); Glucose 94 MG/DL (74-106); Osmolality,Calculated 300.4 MOS/KG (273-304)
[2019-11-01 09:25] LABS: Alanine Aminotransferase 19 U/L (13-56); Estimated Glom Filtration Rate 7 ML/MIN
[2019-11-01] MEDS: carvediloL 25 MG TABLET PO SCH ×2 (09:25→21:10)
[2019-11-01] MEDS: ENOXAPARIN 30 MG/0.3 ML SYRINGE SUBCUT SCH (09:25)
[2019-11-01] MEDS: FUROSEMIDE 40 MG/4 ML VIAL IV SCH ×2 (09:25→15:26)
[2019-11-01 09:26] LABS: Aspartate Amino Transferase 26 U/L (0-37)
[2019-11-01] MEDS: PANTOPRAZOLE 40 MG TABLET PO SCH (09:26)
[2019-11-01] MEDS: amLODIPine 10 MG TABLET PO SCH (09:26)
[2019-11-01 09:27] LABS: Bilirubin,Total < 0.39 MG/DL (0.2-1.0); Total Protein 5.3 G/DL (6.4-8.3)
[2019-11-01] MEDS: LACTULOSE 20 GM/30 ML UDCUP PO PRN ×2 (09:27→18:33)
[2019-11-01 09:29] LABS: Alkaline Phosphatase 69 U/L (45-117)
[2019-11-01] MEDS: FOLIC ACID 1 MG TABLET PO SCH ×2 (09:33→21:11)
[2019-11-01] MEDS ORDERED: SODIUM BICARBONATE 50 MEQ/50 ML VIAL IV ONE (11:32)
[2019-11-01] MEDS: CALCIUM CARBONATE CHEW 500 MG TABLET PO SCH ×2 (15:27→21:11)
[2019-11-01] MEDS ORDERED: SODIUM PHOSPHATE ENEMA 133 ML BOTTLE RECTAL PRN (19:29)
[2019-11-02] MEDS: ALBUTEROL/IPRATROPIUM 3 ML NEB RESP TX SCH ×4 (01:03→19:30)
[2019-11-02] MEDS: diphenhydrAMINE CAP 25 MG CAPSULE PO PRN ×2 (01:21→20:22)
[2019-11-02 05:52] LABS: Basophils % 0.2 % (0.0-0.8); Eosinophils # 0.1 10*3/uL (0.0-0.87); Eosinophils % 2.1 % (0.00-10.9); Hematocrit 23.3 VOL% (35.7-47.0); Hemoglobin 6.9 GM/DL (12.0-16.0); Immature Granulocytes % 1.5 %; Lymphocytes # 1.1 10*3/uL (1.4-4.0); Lymphocytes % 16.8 % (21.3-54.2); Mean Corpuscular HGB Conc 29.6 GM/DL (32-36); Mean Corpuscular Volume 106.4 FL (87-102); Mean Platelet Volume 10.5 FL (9.6-12.0); Monocytes % 6.7 % (1.7-12.7); Neutrophils % 72.7 % (38.7-73.9); Platelet Count 136 T/CUMM (130-400); Red Blood Count 2.19 MC/CUMM (3.8-5.5); Red Cell Distribution Width 17.2 % (9.3-17.3); White Blood Count 6.6 T/CUMM (4-12)
[2019-11-02 06:04] LABS: Calcium 7.4 MG/DL (8.5-10.1); Osmolality,Calculated 301.4 MOS/KG (273-304)
[2019-11-02] MEDS: hydrALAZINE 20 MG/1 ML VIAL IV PRN (07:08)
[2019-11-02] MEDS: FUROSEMIDE 40 MG/4 ML VIAL IV SCH ×2 (09:36→18:03)
[2019-11-02] MEDS: CALCIUM CARBONATE CHEW 500 MG TABLET PO SCH ×2 (09:36→18:03)
[2019-11-02] MEDS: ENOXAPARIN 30 MG/0.3 ML SYRINGE SUBCUT SCH (09:37)
[2019-11-02] MEDS: PANTOPRAZOLE 40 MG TABLET PO SCH (09:37)
[2019-11-02] MEDS: amLODIPine 10 MG TABLET PO SCH (09:37)
[2019-11-02] MEDS: carvediloL 25 MG TABLET PO SCH (09:37)
[2019-11-02] MEDS: FOLIC ACID 1 MG TABLET PO SCH (09:37)
[2019-11-02] MEDS ORDERED: SODIUM CHLORIDE 0.9% 1,000 ML IV PRN ×2 (13:40→14:27)
[2019-11-02] MEDS ORDERED: HEPARIN 10,000 UNIT/10 ML VIAL IV SCH (15:45)
[2019-11-02] MEDS ORDERED: TISSUE ADHESIVE 1 EACH APPLICATOR TOP ONE (16:33)
[2019-11-02] MEDS: MORPHINE 4 MG/1 ML VIAL IV PRN (18:01)
[2019-11-02 21:03] LABS: Basophils % 0.2 % (0.0-0.8); Eosinophils # 0.1 10*3/uL (0.0-0.87); Eosinophils % 1.8 % (0.00-10.9); Hematocrit 26.8 VOL% (35.7-47.0); Hemoglobin 8.5 GM/DL (12.0-16.0); Immature Granulocytes % 1.4 %; Immature Granulocytes Absolute 0.09 #; Lymphocytes # 1.1 10*3/uL (1.4-4.0); Lymphocytes % 18.3 % (21.3-54.2); Mean Corpuscular HGB Conc 31.7 GM/DL (32-36); Mean Corpuscular Volume 97.8 FL (87-102); Mean Platelet Volume 10.9 FL (9.6-12.0); Monocytes % 8.5 % (1.7-12.7); Neutrophils % 69.8 % (38.7-73.9); Red Blood Count 2.74 MC/CUMM (3.8-5.5); Red Cell Distribution Width 18.9 % (9.3-17.3); White Blood Count 6.2 T/CUMM (4-12)
[2019-11-02 21:07] LABS: Platelet Count 86 T/CUMM (130-400)
[2019-11-03] MEDS ORDERED: SILVER NITRATE STICK 1 EACH TOP ONE ×2 (00:14→00:30)
[2019-11-03] MEDS ORDERED: SODIUM CHLORIDE 0.9% 1,000 ML IV PRN ×7 (00:30→03:45)
[2019-11-03] MEDS: ALBUTEROL/IPRATROPIUM 3 ML NEB RESP TX SCH ×4 (01:05→19:40)
[2019-11-03] MEDS: diphenhydrAMINE CAP 25 MG CAPSULE PO PRN ×3 (01:21→22:31)
[2019-11-03] MEDS: carvediloL 25 MG TABLET PO SCH ×3 (02:06→22:25)
[2019-11-03 02:20] LABS: Basophils % 0.2 % (0.0-0.8); Eosinophils # 0.2 10*3/uL (0.0-0.87); Eosinophils % 2.6 % (0.00-10.9); Hematocrit 26.8 VOL% (35.7-47.0); Hemoglobin 8.4 GM/DL (12.0-16.0); Immature Granulocytes % 1.3 %; Immature Granulocytes Absolute 0.08 #; Lymphocytes # 1.3 10*3/uL (1.4-4.0); Mean Corpuscular HGB Conc 31.3 GM/DL (32-36); Mean Corpuscular Volume 98.5 FL (87-102); Mean Platelet Volume 11.1 FL (9.6-12.0); Monocytes % 10.5 % (1.7-12.7); Neutrophils % 63.4 % (38.7-73.9); Platelet Count 86 T/CUMM (130-400); Red Blood Count 2.72 MC/CUMM (3.8-5.5); Red Cell Distribution Width 19.1 % (9.3-17.3); White Blood Count 6.1 T/CUMM (4-12)
[2019-11-03 02:38] LABS: Anisocytosis 3+; Calcium 7.3 MG/DL (8.5-10.1); Microcytosis 1+; Osmolality,Calculated 290.7 MOS/KG (273-304); Polychromasia Slight
[2019-11-03 02:39] LABS: Tear Drop Cells Slight
[2019-11-03 02:40] LABS: Platelet Estimate Decreased
[2019-11-03] MEDS: CALCIUM CARBONATE CHEW 500 MG TABLET PO SCH ×4 (04:00→22:27)
[2019-11-03] MEDS: FOLIC ACID 1 MG TABLET PO SCH ×3 (04:00→22:25)
[2019-11-03] MEDS ORDERED: DESMOPRESSIN 4 MCG/1 ML AMP IV STA (04:51)
[2019-11-03] MEDS ORDERED: SODIUM CHLORIDE 0.9% IV SCH (05:00)
[2019-11-03] MEDS ORDERED: DESMOPRESSIN IV SCH (05:00)
[2019-11-03] MEDS: PANTOPRAZOLE 40 MG TABLET PO SCH (09:02)
[2019-11-03] MEDS: amLODIPine 10 MG TABLET PO SCH (09:02)
[2019-11-03] MEDS: FUROSEMIDE 40 MG/4 ML VIAL IV SCH ×2 (09:03→17:19)
[2019-11-03] MEDS ORDERED: LIDOCAINE 2% 20 ML VIAL ONE (09:27)
[2019-11-03] MEDS ORDERED: MAGNESIUM SULF RIDER 2 GM in PREMIX 1 EACH IV ONE (15:51)
[2019-11-03 18:58] LABS: Hematocrit 29.5 VOL% (35.7-47.0); Hemoglobin 9.5 GM/DL (12.0-16.0)
[2019-11-04] MEDS: ALBUTEROL/IPRATROPIUM 3 ML NEB RESP TX SCH ×4 (02:40→18:58)
[2019-11-04] MEDS: hydrALAZINE 20 MG/1 ML VIAL IV PRN ×2 (04:19→13:23)
[2019-11-04] MEDS ORDERED: ceFAZolin 1,000 MG in SYRINGE 1 EACH IV ONE (10:19)
[2019-11-04] MEDS: CALCIUM CARBONATE CHEW 500 MG TABLET PO SCH ×3 (10:57→22:09)
[2019-11-04] MEDS: carvediloL 25 MG TABLET PO SCH ×2 (13:23→22:09)
[2019-11-04] MEDS: amLODIPine 10 MG TABLET PO SCH (13:23)
[2019-11-04] MEDS: FOLIC ACID 1 MG TABLET PO SCH ×2 (13:23→22:10)
[2019-11-04] MEDS: PANTOPRAZOLE 40 MG TABLET PO SCH (13:23)
[2019-11-04] MEDS: FUROSEMIDE 40 MG/4 ML VIAL IV SCH ×2 (13:24→16:30)
[2019-11-04] MEDS: diphenhydrAMINE CAP 25 MG CAPSULE PO PRN ×2 (13:25→22:10)
[2019-11-04] MEDS: HEPARIN 5,000 UNIT/1 ML VIAL SUBCUT SCH ×2 (16:30→22:09)
[2019-11-05] MEDS: ALBUTEROL/IPRATROPIUM 3 ML NEB RESP TX SCH ×4 (00:14→19:11)
[2019-11-05] MEDS: hydrALAZINE 20 MG/1 ML VIAL IV PRN ×3 (01:08→10:23)
[2019-11-05 05:05] LABS: Basophils % 0.2 % (0.0-0.8); Eosinophils # 0.1 10*3/uL (0.0-0.87); Eosinophils % 1.3 % (0.00-10.9); Hematocrit 28.6 VOL% (35.7-47.0); Hemoglobin 9.2 GM/DL (12.0-16.0); Immature Granulocytes % 0.9 %; Immature Granulocytes Absolute 0.09 #; Lymphocytes # 1.1 10*3/uL (1.4-4.0); Lymphocytes % 11.6 % (21.3-54.2); Mean Corpuscular HGB Conc 32.2 GM/DL (32-36); Mean Platelet Volume 11.4 FL (9.6-12.0); Monocytes % 11.7 % (1.7-12.7); Neutrophils % 74.3 % (38.7-73.9); Platelet Count 92 T/CUMM (130-400); Red Blood Count 3.01 MC/CUMM (3.8-5.5); Red Cell Distribution Width 17.6 % (9.3-17.3); White Blood Count 9.7 T/CUMM (4-12)
[2019-11-05 05:27] LABS: Calcium 7.8 MG/DL (8.5-10.1); Osmolality,Calculated 288.5 MOS/KG (273-304)
[2019-11-05 05:29] LABS: Hypochromasia 1+; Microcytosis 1+; Ovalocytes Slight; Platelet Estimate Decreased
[2019-11-05] MEDS ORDERED: HEPARIN 5,000 UNIT/1 ML VIAL ONE (08:23)
[2019-11-05] MEDS ORDERED: LIDOCAINE 1%/EPI INJ 20 ML VIAL ONE (08:23)
[2019-11-05] MEDS ORDERED: BUPIVACAINE MPF 0.25% 30 ML VIAL ONE (08:23)
[2019-11-05 08:39] LABS: HIV Antigen/Antibody Result Nonreactive (Nonreactive)
[2019-11-05] MEDS ORDERED: SODIUM CHLORIDE 0.9% 250 ML IV SCH (09:00)
[2019-11-05] MEDS ORDERED: ceFAZolin 1,000 MG VIAL ONE (09:10)
[2019-11-05] MEDS ORDERED: propofoL 200 MG/20 ML VIAL IV ONE (09:47)
[2019-11-05] MEDS ORDERED: LIDOCAINE 2% 5 ML VIAL ONE (09:47)
[2019-11-05] MEDS ORDERED: MIDAZOLAM 2 MG/2 ML VIAL ONE (09:47)
[2019-11-05] MEDS ORDERED: ONDANSETRON 4 MG/2 ML VIAL ONE (09:48)
[2019-11-05] MEDS ORDERED: fentaNYL 100 MCG/2 ML VIAL ONE (09:48)
[2019-11-05] MEDS ORDERED: hydrALAZINE 20 MG/1 ML VIAL ONE (10:22)
[2019-11-05] MEDS: FOLIC ACID 1 MG TABLET PO SCH ×2 (12:57→20:07)
[2019-11-05] MEDS: amLODIPine 10 MG TABLET PO SCH (12:57)
[2019-11-05] MEDS: carvediloL 25 MG TABLET PO SCH ×2 (12:57→20:06)
[2019-11-05] MEDS: FUROSEMIDE 40 MG/4 ML VIAL IV SCH ×2 (12:58→18:33)
[2019-11-05] MEDS: diphenhydrAMINE CAP 25 MG CAPSULE PO PRN ×2 (12:58→20:06)
[2019-11-05] MEDS: HEPARIN 5,000 UNIT/1 ML VIAL SUBCUT SCH ×2 (12:58→20:07)
[2019-11-05] MEDS: PANTOPRAZOLE 40 MG TABLET PO SCH (12:58)
[2019-11-05] MEDS: CALCIUM CARBONATE CHEW 500 MG TABLET PO SCH ×3 (13:00→20:07)
[2019-11-06] MEDS: ALBUTEROL/IPRATROPIUM 3 ML NEB RESP TX SCH ×3 (01:07→13:20)
[2019-11-06] MEDS: diphenhydrAMINE CAP 25 MG CAPSULE PO PRN (02:14)
[2019-11-06] MEDS: carvediloL 25 MG TABLET PO SCH (08:53)
[2019-11-06] MEDS: PANTOPRAZOLE 40 MG TABLET PO SCH (08:53)
[2019-11-06] MEDS: CALCIUM CARBONATE CHEW 500 MG TABLET PO SCH (08:53)
[2019-11-06] MEDS: amLODIPine 10 MG TABLET PO SCH (08:54)
[2019-11-06] MEDS: FOLIC ACID 1 MG TABLET PO SCH (08:54)
[2019-11-06] MEDS: FUROSEMIDE 40 MG/4 ML VIAL IV SCH (08:55)
[2019-11-06] MEDS: HEPARIN 5,000 UNIT/1 ML VIAL SUBCUT SCH (08:55)
[2019-11-06 12:31] VITALS: BP 172/77
== END 2019-11-06 16:33 | disposition home or self-care (01) | DRG 194 ==
LOC: EDBD → EDUNIT# → N.ED 05:13 → N.EDINP 08:20 → SUATTDRO 08:20 → N.TELES 10:00
PROVIDERS: ADMIT Internal Medicine; ATTEND Internal Medicine

== ENCOUNTER 2019-11-13 14:58 | Inpatient (IN) ==
[2019-11-13] MEDS ORDERED: VANCOMYCIN INJ 1,000 MG in SODIUM CHLORIDE 0.9% 250 ML IV STA (15:33)
[2019-11-13] MEDS ORDERED: MORPHINE 4 MG/1 ML VIAL IV STA (15:35)
[2019-11-13] MEDS ORDERED: KETOROLAC 30 MG/1 ML VIAL IV STA (15:35)
[2019-11-13] MEDS ORDERED: ONDANSETRON 4 MG/2 ML VIAL IV STA (15:35)
[2019-11-13 16:26] LABS: Basophils % 0.2 % (0.0-0.8); Eosinophils % 0.2 % (0.00-10.9); Hematocrit 29.1 VOL% (35.7-47.0); Hemoglobin 9.1 GM/DL (12.0-16.0); Immature Granulocytes Absolute 0.19 #; Lymphocytes % 4.9 % (21.3-54.2); Mean Corpuscular HGB Conc 31.3 GM/DL (32-36); Mean Corpuscular Volume 98.6 FL (87-102); Mean Platelet Volume 11.4 FL (9.6-12.0); Monocytes % 5.9 % (1.7-12.7); Neutrophils % 87.8 % (38.7-73.9); Platelet Count 125 T/CUMM (130-400); Red Blood Count 2.95 MC/CUMM (3.8-5.5); White Blood Count 19.4 T/CUMM (4-12)
[2019-11-13 16:34] LABS: Apearance,Urine Slightly Hazy (Clear); Bilirubin,Urine Negative (Negative); Blood, Urine Negative (Negative); Glucose,Urine (UA) 50 mg/dL (Negative); Ketones,Urine Negative (Negative); Mucus,Urine Occasional /LPF (Occasional); Nitrite,Urine Negative (Negative); Protein,Urine >=500 MG/DL; RBC,Urine 146 /HPF (0-4); Squamous Epithelial Cell,Urine Occasional /HPF (0-10); Urine Color Yellow (Yellow); Urine Specific Gravity 1.026 (1.001-1.035); Urine Urobilinogen < 2.0 EU/DL (0.2-1.0); WBC,Urine 42 /HPF (0-6)
[2019-11-13 16:52] LABS: Anisocytosis Slight; Band Neutrophils 2 % (0-10); Hypochromasia Slight; Lymphocytes 8 % (20-55); Platelet Estimate Adequate; Polychromasia Few; Segmented Neutrophils 84 % (50-85); Target Cells Few; Total Cells Counted 100
[2019-11-13 16:57] LABS: Alanine Aminotransferase 17 U/L (13-56); Albumin 1.5 G/DL (3.4-5.0); Alkaline Phosphatase 67 U/L (45-117); Aspartate Amino Transferase 28 U/L (0-37); Bilirubin,Total < 0.39 MG/DL (0.2-1.0); Blood Urea Nitrogen 21 MG/DL (7-18); Calcium 7.4 MG/DL (8.5-10.1); Estimated Glom Filtration Rate 17 ML/MIN; Glucose 92 MG/DL (74-106); Osmolality,Calculated 279.5 MOS/KG (273-304); Total Protein 5.9 G/DL (6.4-8.3)
[2019-11-13] MEDS ORDERED: DEXTROSE 10% 250 ML BAG IV PRN (18:07)
[2019-11-13] MEDS ORDERED: GLUCAGON 1 MG VIAL IM PRN (18:07)
[2019-11-13] MEDS ORDERED: DOCUSATE SODIUM 100 MG CAPSULE PO PRN (18:13)
[2019-11-13] MEDS ORDERED: ACETAMINOPHEN 325 MG TABLET PO SCH (18:30)
[2019-11-13 19:26] LABS: Barbiturates Screen,Urine Negative (Negative); Benzodiazepines Screen,Urine Negative (Negative); Cannabinoid Screen,Urine Negative (Negative); Opiate Screen,Urine Negative (Negative); Phencyclidine Screen,Urine Negative (Negative)
[2019-11-13] MEDS ORDERED: VANCOMYCIN INJ 750 MG in SODIUM CHLORIDE 0.9% 250 ML IV ONE (21:00)
[2019-11-13] MEDS: carvediloL 25 MG TABLET PO SCH (21:30)
[2019-11-13] MEDS: FUROSEMIDE 40 MG TABLET PO SCH (21:30)
[2019-11-14] MEDS: MORPHINE 4 MG/1 ML VIAL IV PRN (00:36)
[2019-11-14] MEDS: ACETAMINOPHEN 325 MG TABLET PO PRN ×2 (01:20→20:40)
[2019-11-14] MEDS: ONDANSETRON 4 MG/2 ML VIAL IV PRN (01:22)
[2019-11-14] MEDS ORDERED: IBUPROFEN 600 MG TABLET PO ONE (03:17)
[2019-11-14 06:08] LABS: Basophils % 0.1 % (0.0-0.8); Eosinophils # 0.1 10*3/uL (0.0-0.87); Eosinophils % 0.8 % (0.00-10.9); Hemoglobin 8.2 GM/DL (12.0-16.0); Immature Granulocytes % 0.6 %; Immature Granulocytes Absolute 0.08 #; Lymphocytes # 1.1 10*3/uL (1.4-4.0); Lymphocytes % 7.8 % (21.3-54.2); Mean Corpuscular HGB Conc 31.5 GM/DL (32-36); Mean Corpuscular Volume 97.4 FL (87-102); Mean Platelet Volume 12.1 FL (9.6-12.0); Monocytes % 5.6 % (1.7-12.7); Neutrophils % 85.1 % (38.7-73.9); Platelet Count 109 T/CUMM (130-400); Red Blood Count 2.67 MC/CUMM (3.8-5.5); Red Cell Distribution Width 17.1 % (9.3-17.3)
[2019-11-14 06:28] LABS: Albumin 1.3 G/DL (3.4-5.0); Bilirubin,Total 0.4 MG/DL (0.2-1.0); Calcium 7.2 MG/DL (8.5-10.1); Osmolality,Calculated 277.8 MOS/KG (273-304); Total Protein 5.5 G/DL (6.4-8.3)
[2019-11-14 06:36] LABS: Band Neutrophils 13 % (0-10); Eosinophils 3 % (0-10); Lymphocytes 9 % (20-55); Segmented Neutrophils 69 % (50-85); Total Cells Counted 100
[2019-11-14 06:37] LABS: Anisocytosis 2+; Macrocytosis 1+; Platelet Estimate Adequate; Poikilocytosis Slight
[2019-11-14] MEDS: amLODIPine 10 MG TABLET PO SCH (08:50)
[2019-11-14] MEDS: carvediloL 25 MG TABLET PO SCH ×2 (08:50→16:53)
[2019-11-14] MEDS: PANTOPRAZOLE 40 MG TABLET PO SCH (08:50)
[2019-11-14] MEDS: FUROSEMIDE 40 MG TABLET PO SCH ×2 (08:50→20:40)
[2019-11-14] MEDS ORDERED: MAGNESIUM SULF RIDER 1 GM in PREMIX 1 EACH IV ONE (11:00)
[2019-11-14] MEDS ORDERED: VANCOMYCIN INJ 500 MG in SODIUM CHLORIDE 0.9% 250 ML IV PRN (17:00)
[2019-11-15] MEDS ORDERED: FUROSEMIDE 100 MG/10 ML VIAL IV ONE (02:41)
[2019-11-15 05:53] LABS: Basophils % 0.2 % (0.0-0.8); Eosinophils # 0.2 10*3/uL (0.0-0.87); Eosinophils % 1.5 % (0.00-10.9); Hematocrit 26.6 VOL% (35.7-47.0); Hemoglobin 8.3 GM/DL (12.0-16.0); Immature Granulocytes % 0.7 %; Immature Granulocytes Absolute 0.09 #; Lymphocytes # 1.8 10*3/uL (1.4-4.0); Lymphocytes % 14.3 % (21.3-54.2); Mean Corpuscular HGB Conc 31.2 GM/DL (32-36); Mean Corpuscular Volume 97.1 FL (87-102); Mean Platelet Volume 12.2 FL (9.6-12.0); Monocytes % 4.5 % (1.7-12.7); Neutrophils % 78.8 % (38.7-73.9); Platelet Count 109 T/CUMM (130-400); Red Blood Count 2.74 MC/CUMM (3.8-5.5); Red Cell Distribution Width 17.1 % (9.3-17.3); White Blood Count 12.4 T/CUMM (4-12)
[2019-11-15 06:08] LABS: Alanine Aminotransferase 11 U/L (13-56); Albumin 1.2 G/DL (3.4-5.0); Alkaline Phosphatase 75 U/L (45-117); Aspartate Amino Transferase 18 U/L (0-37); Bilirubin,Total < 0.39 MG/DL (0.2-1.0); Blood Urea Nitrogen 35 MG/DL (7-18); Calcium 7.3 MG/DL (8.5-10.1); Estimated Glom Filtration Rate 11 ML/MIN; Glucose 103 MG/DL (74-106); Total Protein 5.5 G/DL (6.4-8.3)
[2019-11-15 06:52] LABS: Band Neutrophils 10 % (0-10); Eosinophils 3 % (0-10); Lymphocytes 17 % (20-55); Nucleated Red Blood Cells 1 (0-5); Segmented Neutrophils 62 % (50-85); Total Cells Counted 100
[2019-11-15 06:53] LABS: Anisocytosis Slight; Macrocytosis 1+; Platelet Estimate Adequate
[2019-11-15] MEDS: carvediloL 25 MG TABLET PO SCH ×2 (08:50→16:37)
[2019-11-15] MEDS: FUROSEMIDE 40 MG TABLET PO SCH ×2 (08:50→20:40)
[2019-11-15] MEDS: amLODIPine 10 MG TABLET PO SCH (08:50)
[2019-11-15] MEDS: PANTOPRAZOLE 40 MG TABLET PO SCH (08:50)
[2019-11-15] MEDS: MORPHINE 4 MG/1 ML VIAL IV PRN (21:57)
[2019-11-15] MEDS: hydrALAZINE 20 MG/1 ML VIAL IV PRN (23:55)
[2019-11-15] MEDS: ACETAMINOPHEN 325 MG TABLET PO PRN (23:55)
[2019-11-16] MEDS: ONDANSETRON 4 MG/2 ML VIAL IV PRN (02:37)
[2019-11-16 06:43] LABS: Basophils % 0.2 % (0.0-0.8); Eosinophils # 0.2 10*3/uL (0.0-0.87); Eosinophils % 1.5 % (0.00-10.9); Hematocrit 27.7 VOL% (35.7-47.0); Hemoglobin 8.6 GM/DL (12.0-16.0); Immature Granulocytes % 1.4 %; Immature Granulocytes Absolute 0.16 #; Lymphocytes # 1.7 10*3/uL (1.4-4.0); Lymphocytes % 14.9 % (21.3-54.2); Mean Corpuscular Volume 97.9 FL (87-102); Mean Platelet Volume 12.4 FL (9.6-12.0); Platelet Count 136 T/CUMM (130-400); Red Blood Count 2.83 MC/CUMM (3.8-5.5); Red Cell Distribution Width 16.4 % (9.3-17.3); White Blood Count 11.3 T/CUMM (4-12)
[2019-11-16 07:30] LABS: Albumin 1.3 G/DL (3.4-5.0); Bilirubin,Total 0.4 MG/DL (0.2-1.0); Calcium 7.3 MG/DL (8.5-10.1); Osmolality,Calculated 281.1 MOS/KG (273-304)
[2019-11-16] MEDS: ACETAMINOPHEN 325 MG TABLET PO PRN (09:15)
[2019-11-16] MEDS: carvediloL 25 MG TABLET PO SCH ×2 (09:15→16:15)
[2019-11-16] MEDS: PANTOPRAZOLE 40 MG TABLET PO SCH (09:50)
[2019-11-16] MEDS: FUROSEMIDE 40 MG TABLET PO SCH ×2 (09:50→21:11)
[2019-11-16] MEDS: amLODIPine 10 MG TABLET PO SCH (09:50)
[2019-11-16] MEDS ORDERED: cloNIDine 0.2 MG/24 HR PATCH TRANSDERM SCH (14:00)
[2019-11-16] MEDS: MORPHINE 4 MG/1 ML VIAL IV PRN ×2 (16:15→23:52)
[2019-11-17] MEDS ORDERED: MORPHINE 4 MG/1 ML VIAL IV ONE (00:46)
[2019-11-17] MEDS: ALBUTEROL INHALER 18 GM INH SCH ×3 (01:30→13:15)
[2019-11-17 06:26] LABS: Basophils % 0.3 % (0.0-0.8); Eosinophils # 0.2 10*3/uL (0.0-0.87); Eosinophils % 1.5 % (0.00-10.9); Hematocrit 27.9 VOL% (35.7-47.0); Immature Granulocytes % 1.6 %; Immature Granulocytes Absolute 0.17 #; Lymphocytes # 1.8 10*3/uL (1.4-4.0); Mean Corpuscular HGB Conc 32.3 GM/DL (32-36); Mean Corpuscular Volume 95.5 FL (87-102); Mean Platelet Volume 11.9 FL (9.6-12.0); Monocytes % 10.8 % (1.7-12.7); Neutrophils % 68.8 % (38.7-73.9); Platelet Count 157 T/CUMM (130-400); Red Blood Count 2.92 MC/CUMM (3.8-5.5); Red Cell Distribution Width 16.3 % (9.3-17.3); White Blood Count 10.6 T/CUMM (4-12)
[2019-11-17 06:44] LABS: Calcium 7.2 MG/DL (8.5-10.1); Osmolality,Calculated 281.4 MOS/KG (273-304)
[2019-11-17] MEDS: amLODIPine 10 MG TABLET PO SCH (09:30)
[2019-11-17] MEDS: FUROSEMIDE 40 MG TABLET PO SCH (09:30)
[2019-11-17] MEDS: carvediloL 25 MG TABLET PO SCH ×2 (09:30→17:40)
[2019-11-17] MEDS ORDERED: FUROSEMIDE 40 MG/4 ML VIAL IV ONE (11:40)
[2019-11-17] MEDS: diphenhydrAMINE CAP 25 MG CAPSULE PO PRN (13:15)
[2019-11-17] MEDS: MORPHINE 4 MG/1 ML VIAL IV PRN ×2 (13:20→22:18)
[2019-11-17] MEDS: FUROSEMIDE 40 MG/4 ML VIAL IV SCH (22:15)
[2019-11-18] MEDS: ALBUTEROL INHALER 18 GM INH SCH ×5 (01:06→21:19)
[2019-11-18] MEDS: diphenhydrAMINE CAP 25 MG CAPSULE PO PRN ×3 (04:30→17:59)
[2019-11-18] MEDS: hydrALAZINE 20 MG/1 ML VIAL IV PRN (04:30)
[2019-11-18 05:43] LABS: Basophils % 0.2 % (0.0-0.8); Eosinophils # 0.1 10*3/uL (0.0-0.87); Eosinophils % 1.4 % (0.00-10.9); Hemoglobin 8.4 GM/DL (12.0-16.0); Immature Granulocytes % 2.4 %; Lymphocytes # 1.5 10*3/uL (1.4-4.0); Lymphocytes % 17.9 % (21.3-54.2); Mean Corpuscular HGB Conc 31.1 GM/DL (32-36); Mean Corpuscular Volume 97.8 FL (87-102); Mean Platelet Volume 11.5 FL (9.6-12.0); Monocytes % 11.3 % (1.7-12.7); Neutrophils % 66.8 % (38.7-73.9); Platelet Count 165 T/CUMM (130-400); Red Blood Count 2.76 MC/CUMM (3.8-5.5); Red Cell Distribution Width 16.1 % (9.3-17.3); White Blood Count 8.4 T/CUMM (4-12)
[2019-11-18 06:15] LABS: Calcium 7.5 MG/DL (8.5-10.1); Osmolality,Calculated 283.4 MOS/KG (273-304)
[2019-11-18] MEDS: FUROSEMIDE 40 MG/4 ML VIAL IV SCH ×3 (06:15→21:33)
[2019-11-18] MEDS ORDERED: diphenhydrAMINE 2% CREAM 28 GM TUBE TOP PRN (08:47)
[2019-11-18] MEDS: carvediloL 25 MG TABLET PO SCH ×2 (09:59→16:49)
[2019-11-18] MEDS: amLODIPine 10 MG TABLET PO SCH (09:59)
[2019-11-18] MEDS: ISOSORBIDE MONONITRATE 30 MG TABLET PO SCH (13:11)
[2019-11-18] MEDS ORDERED: VANCOMYCIN INJ 500 MG in SODIUM CHLORIDE 0.9% 100 ML IV ONE (15:00)
[2019-11-18] MEDS: LEVOFLOXACIN 250 MG TABLET PO SCH (16:49)
[2019-11-18] MEDS: ACETAMINOPHEN 325 MG TABLET PO PRN (18:00)
[2019-11-19] MEDS: ALBUTEROL INHALER 18 GM INH SCH ×3 (02:18→13:42)
[2019-11-19 05:24] LABS: Basophils % 0.4 % (0.0-0.8); Eosinophils # 0.2 10*3/uL (0.0-0.87); Eosinophils % 2.1 % (0.00-10.9); Hematocrit 25.6 VOL% (35.7-47.0); Immature Granulocytes % 4.5 %; Immature Granulocytes Absolute 0.33 #; Lymphocytes # 1.3 10*3/uL (1.4-4.0); Lymphocytes % 17.7 % (21.3-54.2); Mean Corpuscular HGB Conc 31.3 GM/DL (32-36); Mean Corpuscular Volume 96.6 FL (87-102); Mean Platelet Volume 11.2 FL (9.6-12.0); Monocytes % 11.7 % (1.7-12.7); Neutrophils % 63.6 % (38.7-73.9); Platelet Count 177 T/CUMM (130-400); Red Blood Count 2.65 MC/CUMM (3.8-5.5); Red Cell Distribution Width 16.2 % (9.3-17.3); White Blood Count 7.3 T/CUMM (4-12)
[2019-11-19] MEDS: FUROSEMIDE 40 MG/4 ML VIAL IV SCH ×3 (05:29→21:06)
[2019-11-19 05:52] LABS: Calcium 7.4 MG/DL (8.5-10.1)
[2019-11-19 05:56] LABS: Albumin 1.3 G/DL (3.4-5.0); Bilirubin,Total 0.4 MG/DL (0.2-1.0); Calcium 7.3 MG/DL (8.5-10.1); Osmolality,Calculated 292.8 MOS/KG (273-304); Total Protein 5.9 G/DL (6.4-8.3)
[2019-11-19] MEDS ORDERED: BUPIVACAINE 0.25% /EPI 10 ML VIAL ONE (07:53)
[2019-11-19] MEDS ORDERED: HEPARIN 5,000 UNIT/1 ML VIAL ONE (07:53)
[2019-11-19] MEDS ORDERED: LIDOCAINE 1%/EPI INJ 20 ML VIAL ONE (07:53)
[2019-11-19] MEDS ORDERED: LIDOCAINE 2% 5 ML VIAL ONE (09:19)
[2019-11-19] MEDS ORDERED: propofoL 200 MG/20 ML VIAL IV ONE (09:19)
[2019-11-19] MEDS: carvediloL 25 MG TABLET PO SCH ×2 (10:11→17:27)
[2019-11-19] MEDS: ISOSORBIDE MONONITRATE 30 MG TABLET PO SCH (10:11)
[2019-11-19] MEDS: amLODIPine 10 MG TABLET PO SCH (10:11)
[2019-11-19] MEDS: MORPHINE 4 MG/1 ML VIAL IV PRN ×2 (11:34→17:27)
[2019-11-19] MEDS: cloNIDine 0.1 MG TABLET PO PRN (17:27)
[2019-11-19] MEDS ORDERED: VANCOMYCIN INJ 500 MG in SODIUM CHLORIDE 0.9% 100 ML IV ONE (18:00)
[2019-11-19] MEDS: minoxidiL 2.5 MG TABLET PO SCH (20:41)
[2019-11-20] MEDS: MORPHINE 4 MG/1 ML VIAL IV PRN ×3 (01:51→21:56)
[2019-11-20] MEDS: FUROSEMIDE 40 MG/4 ML VIAL IV SCH ×3 (05:07→21:47)
[2019-11-20] MEDS: cloNIDine 0.1 MG TABLET PO PRN (05:07)
[2019-11-20] MEDS: ALBUTEROL INHALER 18 GM INH SCH ×4 (07:24→12:11)
[2019-11-20] MEDS: amLODIPine 10 MG TABLET PO SCH (08:38)
[2019-11-20] MEDS: minoxidiL 2.5 MG TABLET PO SCH ×3 (08:38→21:48)
[2019-11-20] MEDS: ISOSORBIDE MONONITRATE 30 MG TABLET PO SCH (08:38)
[2019-11-20] MEDS: carvediloL 25 MG TABLET PO SCH ×2 (08:38→16:04)
[2019-11-20] MEDS: LEVOFLOXACIN 250 MG TABLET PO SCH (16:04)
[2019-11-21] MEDS: FUROSEMIDE 40 MG/4 ML VIAL IV SCH (05:58)
[2019-11-21] MEDS: minoxidiL 2.5 MG TABLET PO SCH (08:10)
[2019-11-21] MEDS: carvediloL 25 MG TABLET PO SCH (08:10)
[2019-11-21] MEDS: ISOSORBIDE MONONITRATE 30 MG TABLET PO SCH (08:10)
[2019-11-21] MEDS: amLODIPine 10 MG TABLET PO SCH (08:11)
[2019-11-21] MEDS: ALBUTEROL INHALER 18 GM INH SCH (08:11)
[2019-11-21 08:22] VITALS: BP 151/60
== END 2019-11-21 12:36 | disposition home or self-care (01) | DRG 721 ==
LOC: EDUNIT# → N.ED 14:58 → SUPCPDRO 17:21 → SUATTDRO 17:21 → N.EDINP 17:21 → N.2E 20:53 → N.3E 11-19 15:53
PROVIDERS: ADMIT Family Medicine; ATTEND Internal Medicine

== ENCOUNTER 2019-11-27 21:50 | Inpatient (IN) ==
[2019-11-27] MEDS: NITROGLYCERIN SL 0.4 MG TABLET SL PRN (22:25)
[2019-11-27 22:31] LABS: Basophils % 0.1 % (0.0-0.8); Eosinophils # 0.1 10*3/uL (0.0-0.87); Eosinophils % 0.5 % (0.00-10.9); Hematocrit 20.7 VOL% (35.7-47.0); Immature Granulocytes % 1.1 %; Immature Granulocytes Absolute 0.12 #; Lymphocytes # 1.6 10*3/uL (1.4-4.0); Lymphocytes % 14.2 % (21.3-54.2); Mean Corpuscular HGB Conc 30.4 GM/DL (32-36); Mean Corpuscular Volume 98.1 FL (87-102); Monocytes % 5.6 % (1.7-12.7); Neutrophils % 78.5 % (38.7-73.9); Platelet Count 207 T/CUMM (130-400); Red Blood Count 2.11 MC/CUMM (3.8-5.5); Red Cell Distribution Width 16.4 % (9.3-17.3); White Blood Count 11.1 T/CUMM (4-12)
[2019-11-27 22:36] LABS: Hemoglobin 6.3 GM/DL (12.0-16.0)
[2019-11-27 22:39] LABS: INR 1.2; PT Patient Result 12.2 SECS (9.8-11.9)
[2019-11-27] MEDS ORDERED: MORPHINE 4 MG/1 ML VIAL ONE (22:45)
[2019-11-27] MEDS ORDERED: MORPHINE 4 MG/1 ML VIAL IV STA (22:50)
[2019-11-27 22:51] LABS: Alanine Aminotransferase 12 U/L (13-56); Albumin 1.5 G/DL (3.4-5.0); Alkaline Phosphatase 67 U/L (45-117); Aspartate Amino Transferase 19 U/L (0-37); Bilirubin,Total < 0.39 MG/DL (0.2-1.0); Blood Urea Nitrogen 17 MG/DL (7-18); Calcium 7.5 MG/DL (8.5-10.1); Estimated Glom Filtration Rate 20 ML/MIN; Glucose 105 MG/DL (74-106); Osmolality,Calculated 278.5 MOS/KG (273-304); Total Protein 6.3 G/DL (6.4-8.3)
[2019-11-27 22:52] LABS: Ferritin 362.4 ng/ml (8-252)
[2019-11-27] MEDS ORDERED: GLUCAGON 1 MG VIAL IM PRN (23:20)
[2019-11-27] MEDS ORDERED: DEXTROSE 10% 250 ML BAG IV PRN (23:20)
[2019-11-27] MEDS ORDERED: ZALEPLON 5 MG CAPSULE PO PRN (23:20)
[2019-11-27] MEDS ORDERED: ONDANSETRON 4 MG/2 ML VIAL IV PRN (23:20)
[2019-11-27] MEDS ORDERED: LEVOFLOXACIN INJ 500 MG in PREMIX 1 EACH IV STA (23:27)
[2019-11-27] MEDS ORDERED: PIPERACILLIN/TAZOBACTAM 2,250 MG in SODIUM CHLORIDE 0.9% 100 ML IV STA (23:28)
[2019-11-27] MEDS ORDERED: LEVOFLOXACIN INJ 750 MG in PREMIX 1 EACH IV STA (23:28)
[2019-11-27] MEDS ORDERED: cloNIDine 0.1 MG TABLET PO PRN (23:34)
[2019-11-27] MEDS ORDERED: SODIUM CHLORIDE 0.9% 1,000 ML IV PRN (23:39)
[2019-11-27] MEDS ORDERED: VANCOMYCIN 500 MG VIAL IV SCH (23:45)
[2019-11-28] MEDS: ENOXAPARIN 30 MG/0.3 ML SYRINGE SUBCUT SCH (02:07)
[2019-11-28] MEDS ORDERED: VANCOMYCIN INJ 500 MG in SODIUM CHLORIDE 0.9% 100 ML IV PRN (03:36)
[2019-11-28] MEDS: FUROSEMIDE 40 MG TABLET PO SCH ×2 (09:05→15:40)
[2019-11-28] MEDS: carvediloL 25 MG TABLET PO SCH ×2 (09:05→17:01)
[2019-11-28] MEDS: PANTOPRAZOLE 40 MG TABLET PO SCH (09:06)
[2019-11-28] MEDS: ISOSORBIDE MONONITRATE 30 MG TABLET PO SCH (09:06)
[2019-11-28] MEDS: amLODIPine 10 MG TABLET PO SCH (09:06)
[2019-11-28] MEDS: minoxidiL 2.5 MG TABLET PO SCH ×2 (09:06→21:05)
[2019-11-28 09:52] LABS: Basophils % 0.1 % (0.0-0.8); Eosinophils % 0.2 % (0.00-10.9); Hematocrit 21.7 VOL% (35.7-47.0); Hemoglobin 6.5 GM/DL (12.0-16.0); Immature Granulocytes Absolute 0.11 #; Lymphocytes # 1.3 10*3/uL (1.4-4.0); Lymphocytes % 12.1 % (21.3-54.2); Mean Platelet Volume 10.7 FL (9.6-12.0); Monocytes % 6.9 % (1.7-12.7); Neutrophils % 79.7 % (38.7-73.9); Platelet Count 210 T/CUMM (130-400); Red Blood Count 2.17 MC/CUMM (3.8-5.5); Red Cell Distribution Width 16.6 % (9.3-17.3); White Blood Count 11.1 T/CUMM (4-12)
[2019-11-28] MEDS: PIPERACILLIN/TAZOBACTAM 2,250 MG in SODIUM CHLORIDE 0.9% 100 ML IV SCH ×2 (10:13→15:40)
[2019-11-28] MEDS: ACETAMINOPHEN 325 MG TABLET PO PRN (10:14)
[2019-11-28] MEDS: cloNIDine 0.2 MG/24 HR PATCH TRANSDERM SCH (10:14)
[2019-11-28 10:28] LABS: Albumin 1.6 G/DL (3.4-5.0); Bilirubin,Total 0.5 MG/DL (0.2-1.0); Osmolality,Calculated 274.1 MOS/KG (273-304); Total Protein 6.7 G/DL (6.4-8.3)
[2019-11-28] MEDS: POTASSIUM CHLORIDE 20 MEQ TABLET PO PRN ×3 (11:20→14:51)
[2019-11-29] MEDS: ENOXAPARIN 30 MG/0.3 ML SYRINGE SUBCUT SCH (00:28)
[2019-11-29] MEDS: PIPERACILLIN/TAZOBACTAM 2,250 MG in SODIUM CHLORIDE 0.9% 100 ML IV SCH ×3 (00:30→18:35)
[2019-11-29 10:39] LABS: Basophils % 0.2 % (0.0-0.8); Eosinophils # 0.1 10*3/uL (0.0-0.87); Eosinophils % 1.4 % (0.00-10.9); Hematocrit 25.9 VOL% (35.7-47.0); Immature Granulocytes % 1.4 %; Immature Granulocytes Absolute 0.14 #; Lymphocytes # 1.4 10*3/uL (1.4-4.0); Mean Corpuscular HGB Conc 30.9 GM/DL (32-36); Mean Corpuscular Volume 97.4 FL (87-102); Mean Platelet Volume 11.4 FL (9.6-12.0); Monocytes % 8.8 % (1.7-12.7); Neutrophils % 74.2 % (38.7-73.9); Platelet Count 181 T/CUMM (130-400); Red Blood Count 2.66 MC/CUMM (3.8-5.5); Red Cell Distribution Width 17.8 % (9.3-17.3); White Blood Count 10.2 T/CUMM (4-12)
[2019-11-29] MEDS: carvediloL 25 MG TABLET PO SCH ×2 (14:28→17:31)
[2019-11-29] MEDS: FUROSEMIDE 40 MG TABLET PO SCH ×2 (14:29→15:15)
[2019-11-29] MEDS: ISOSORBIDE MONONITRATE 30 MG TABLET PO SCH (14:42)
[2019-11-29] MEDS: amLODIPine 10 MG TABLET PO SCH (14:43)
[2019-11-29] MEDS: minoxidiL 2.5 MG TABLET PO SCH ×2 (14:43→20:35)
[2019-11-29] MEDS: PANTOPRAZOLE 40 MG TABLET PO SCH (14:43)
[2019-11-29] MEDS ORDERED: VANCOMYCIN INJ 500 MG in SODIUM CHLORIDE 0.9% 100 ML IV ONE (17:00)
[2019-11-29] MEDS: ACETAMINOPHEN 325 MG TABLET PO PRN (20:35)
[2019-11-29] MEDS ORDERED: LEVOFLOXACIN INJ 500 MG in PREMIX 1 EACH IV SCH (21:00)
[2019-11-29] MEDS ORDERED: MORPHINE 4 MG/1 ML VIAL IV ONE (23:17)
[2019-11-30] MEDS: ENOXAPARIN 30 MG/0.3 ML SYRINGE SUBCUT SCH ×2 (00:15→22:47)
[2019-11-30] MEDS: PIPERACILLIN/TAZOBACTAM 2,250 MG in SODIUM CHLORIDE 0.9% 100 ML IV SCH ×3 (01:25→17:14)
[2019-11-30 01:50] LABS: Apearance,Urine Slightly Hazy (Clear); Bilirubin,Urine Negative (Negative); Blood, Urine Negative (Negative); Glucose,Urine (UA) Negative (Negative); Hyaline Casts,Urine 13 /LPF (0-3); Ketones,Urine Negative (Negative); Mucus,Urine Occasional /LPF (Occasional); Nitrite,Urine Negative (Negative); Protein,Urine >=500 MG/DL; RBC,Urine 162 /HPF (0-4); Squamous Epithelial Cell,Urine Occasional /HPF (0-10); Urine Color Amber (Yellow); Urine Specific Gravity 1.044 (1.001-1.035); Urine Urobilinogen < 2.0 EU/DL (0.2-1.0); WBC,Urine 48 /HPF (0-6)
[2019-11-30 01:58] LABS: Barbiturates Screen,Urine Negative (Negative); Benzodiazepines Screen,Urine Negative (Negative); Cannabinoid Screen,Urine Negative (Negative); Opiate Screen,Urine Positive (Negative); Phencyclidine Screen,Urine Negative (Negative)
[2019-11-30 06:12] LABS: Basophils % 0.3 % (0.0-0.8); Eosinophils # 0.2 10*3/uL (0.0-0.87); Hematocrit 25.7 VOL% (35.7-47.0); Immature Granulocytes % 1.3 %; Lymphocytes # 1.2 10*3/uL (1.4-4.0); Lymphocytes % 15.3 % (21.3-54.2); Mean Corpuscular HGB Conc 31.1 GM/DL (32-36); Mean Corpuscular Volume 96.6 FL (87-102); Mean Platelet Volume 11.1 FL (9.6-12.0); Monocytes % 8.4 % (1.7-12.7); Neutrophils % 72.7 % (38.7-73.9); Platelet Count 204 T/CUMM (130-400); Red Blood Count 2.66 MC/CUMM (3.8-5.5); Red Cell Distribution Width 17.3 % (9.3-17.3)
[2019-11-30] MEDS: minoxidiL 2.5 MG TABLET PO SCH ×2 (09:13→20:25)
[2019-11-30] MEDS: ISOSORBIDE MONONITRATE 30 MG TABLET PO SCH (09:14)
[2019-11-30] MEDS: amLODIPine 10 MG TABLET PO SCH (09:14)
[2019-11-30] MEDS: FUROSEMIDE 40 MG TABLET PO SCH ×2 (09:14→17:14)
[2019-11-30] MEDS: PANTOPRAZOLE 40 MG TABLET PO SCH (09:16)
[2019-11-30] MEDS: carvediloL 25 MG TABLET PO SCH ×2 (09:16→17:14)
[2019-11-30] MEDS: ACETAMINOPHEN 325 MG TABLET PO PRN (20:25)
[2019-12-01] MEDS: PIPERACILLIN/TAZOBACTAM 2,250 MG in SODIUM CHLORIDE 0.9% 100 ML IV SCH ×3 (01:07→18:27)
[2019-12-01] MEDS ORDERED: FUROSEMIDE 40 MG/4 ML VIAL IV ONE (01:55)
[2019-12-01] MEDS: diphenhydrAMINE CAP 25 MG CAPSULE PO PRN ×2 (03:05→20:10)
[2019-12-01] MEDS ORDERED: FUROSEMIDE 40 MG/4 ML VIAL IV SCH (08:00)
[2019-12-01] MEDS: ISOSORBIDE MONONITRATE 30 MG TABLET PO SCH (09:31)
[2019-12-01] MEDS: PANTOPRAZOLE 40 MG TABLET PO SCH (09:31)
[2019-12-01] MEDS: minoxidiL 2.5 MG TABLET PO SCH ×2 (09:32→20:10)
[2019-12-01] MEDS: carvediloL 25 MG TABLET PO SCH ×2 (09:32→16:24)
[2019-12-01] MEDS: amLODIPine 10 MG TABLET PO SCH (09:32)
[2019-12-01] MEDS: NITROGLYCERIN SL 0.4 MG TABLET SL PRN (16:23)
[2019-12-01] MEDS: FUROSEMIDE 40 MG/4 ML VIAL IV SCH (16:25)
[2019-12-01] MEDS: ACETAMINOPHEN 325 MG TABLET PO PRN (20:10)
[2019-12-02] MEDS: ENOXAPARIN 30 MG/0.3 ML SYRINGE SUBCUT SCH ×2 (00:13→22:57)
[2019-12-02] MEDS: PIPERACILLIN/TAZOBACTAM 2,250 MG in SODIUM CHLORIDE 0.9% 100 ML IV SCH ×2 (01:04→11:22)
[2019-12-02 05:42] LABS: Basophils % 0.3 % (0.0-0.8); Eosinophils # 0.2 10*3/uL (0.0-0.87); Eosinophils % 3.1 % (0.00-10.9); Hematocrit 24.6 VOL% (35.7-47.0); Hemoglobin 7.7 GM/DL (12.0-16.0); Immature Granulocytes % 1.2 %; Immature Granulocytes Absolute 0.09 #; Lymphocytes # 1.2 10*3/uL (1.4-4.0); Lymphocytes % 16.1 % (21.3-54.2); Mean Corpuscular HGB Conc 31.3 GM/DL (32-36); Mean Corpuscular Volume 96.5 FL (87-102); Mean Platelet Volume 10.4 FL (9.6-12.0); Neutrophils % 69.3 % (38.7-73.9); Platelet Count 200 T/CUMM (130-400); Red Blood Count 2.55 MC/CUMM (3.8-5.5); Red Cell Distribution Width 16.8 % (9.3-17.3); White Blood Count 7.5 T/CUMM (4-12)
[2019-12-02 06:01] LABS: Calcium 8.3 MG/DL (8.5-10.1)
[2019-12-02] MEDS: carvediloL 25 MG TABLET PO SCH ×2 (09:18→16:45)
[2019-12-02] MEDS: ISOSORBIDE MONONITRATE 30 MG TABLET PO SCH (09:19)
[2019-12-02] MEDS: PANTOPRAZOLE 40 MG TABLET PO SCH (09:20)
[2019-12-02] MEDS: FUROSEMIDE 40 MG/4 ML VIAL IV SCH (10:01)
[2019-12-02] MEDS ORDERED: HEPARIN 10,000 UNIT/10 ML VIAL IV SCH (13:30)
[2019-12-02] MEDS: minoxidiL 2.5 MG TABLET PO SCH ×2 (14:04→20:55)
[2019-12-02] MEDS: amLODIPine 10 MG TABLET PO SCH (14:04)
[2019-12-02] MEDS ORDERED: VANCOMYCIN INJ 500 MG in SODIUM CHLORIDE 0.9% 100 ML IV ONE (17:00)
[2019-12-02] MEDS: ACETAMINOPHEN 325 MG TABLET PO PRN (22:56)
[2019-12-03] MEDS: minoxidiL 2.5 MG TABLET PO SCH ×2 (08:59→20:28)
[2019-12-03] MEDS: ISOSORBIDE MONONITRATE 30 MG TABLET PO SCH (09:00)
[2019-12-03] MEDS: amLODIPine 10 MG TABLET PO SCH (09:00)
[2019-12-03] MEDS: carvediloL 25 MG TABLET PO SCH ×2 (09:00→16:57)
[2019-12-03] MEDS: PANTOPRAZOLE 40 MG TABLET PO SCH (09:00)
[2019-12-03] MEDS ORDERED: BUTALBITAL/ACETAMIN/CAFFEINE 50-325-40 MG TABLET PO PRN (14:48)
[2019-12-03] MEDS ORDERED: MORPHINE 4 MG/1 ML VIAL IV PRN (22:10)
[2019-12-03] MEDS: ENOXAPARIN 30 MG/0.3 ML SYRINGE SUBCUT SCH (22:30)
[2019-12-04] MEDS: ACETAMINOPHEN 325 MG TABLET PO PRN (02:14)
[2019-12-04] MEDS: PANTOPRAZOLE 40 MG TABLET PO SCH (10:37)
[2019-12-04] MEDS: amLODIPine 10 MG TABLET PO SCH (10:37)
[2019-12-04] MEDS: ISOSORBIDE MONONITRATE 30 MG TABLET PO SCH (10:37)
[2019-12-04] MEDS: carvediloL 25 MG TABLET PO SCH ×2 (10:37→17:03)
[2019-12-04] MEDS: minoxidiL 2.5 MG TABLET PO SCH ×2 (10:37→20:00)
[2019-12-04] MEDS: BENZONATATE 100 MG CAPSULE PO PRN ×2 (11:51→20:00)
[2019-12-04] MEDS ORDERED: VANCOMYCIN INJ 500 MG in SODIUM CHLORIDE 0.9% 100 ML IV ONE (12:00)
[2019-12-04 12:37] LABS: ABG Base Excess 2.2 MMOL/L (-2.5-2.5); ABG HCO3 26.7 MMOL/L (20-26); ABG Oxygen Saturation 70.3 % (95-100); ABG PCO2 41.1 MM HG (35-48); ABG PH 7.431 (7.35-7.45); Allen Test Positive
[2019-12-04 14:02] LABS: Calcium 8.1 MG/DL (8.5-10.1)
[2019-12-04 14:31] LABS: ABG Base Excess 2.2 MMOL/L (-2.5-2.5); ABG HCO3 26.4 MMOL/L (20-26); ABG Oxygen Saturation 98.5 % (95-100); ABG PCO2 40.5 MM HG (35-48); ABG PH 7.427 (7.35-7.45); ABG PO2 99.1 MM HG (80-95); ABG TCO2 24.9 MMOL/L (23-27)
[2019-12-04] MEDS: ALBUTEROL/IPRATROPIUM 3 ML NEB RESP TX PRN ×2 (16:02→20:25)
[2019-12-04] MEDS: ENOXAPARIN 30 MG/0.3 ML SYRINGE SUBCUT SCH ×2 (20:00→23:49)
[2019-12-04] MEDS: guaiFENesin 200 MG/10 ML UDCUP PO PRN (22:17)
[2019-12-05] MEDS: guaiFENesin 200 MG/10 ML UDCUP PO PRN (04:10)
[2019-12-05] MEDS: ALBUTEROL/IPRATROPIUM 3 ML NEB RESP TX PRN (04:40)
[2019-12-05 06:08] LABS: Basophils % 0.2 % (0.0-0.8); Eosinophils # 0.3 10*3/uL (0.0-0.87); Eosinophils % 3.8 % (0.00-10.9); Hematocrit 22.5 VOL% (35.7-47.0); Hemoglobin 6.9 GM/DL (12.0-16.0); Immature Granulocytes % 0.9 %; Immature Granulocytes Absolute 0.08 #; Lymphocytes # 1.4 10*3/uL (1.4-4.0); Lymphocytes % 15.9 % (21.3-54.2); Mean Corpuscular HGB Conc 30.7 GM/DL (32-36); Mean Corpuscular Volume 96.6 FL (87-102); Mean Platelet Volume 10.9 FL (9.6-12.0); Monocytes % 11.8 % (1.7-12.7); Neutrophils % 67.4 % (38.7-73.9); Platelet Count 168 T/CUMM (130-400); Red Blood Count 2.33 MC/CUMM (3.8-5.5); White Blood Count 8.6 T/CUMM (4-12)
[2019-12-05 06:55] LABS: Calcium 8.2 MG/DL (8.5-10.1); Osmolality,Calculated 273.2 MOS/KG (273-304)
[2019-12-05] MEDS ORDERED: SODIUM CHLORIDE 0.9% 1,000 ML IV PRN (09:12)
[2019-12-05] MEDS ORDERED: ALPRAZolam 0.25 MG TABLET PO STA (09:55)
[2019-12-05] MEDS: PANTOPRAZOLE 40 MG TABLET PO SCH (10:05)
[2019-12-05] MEDS: amLODIPine 10 MG TABLET PO SCH (10:05)
[2019-12-05] MEDS: carvediloL 25 MG TABLET PO SCH ×2 (10:05→16:39)
[2019-12-05] MEDS: minoxidiL 2.5 MG TABLET PO SCH ×2 (10:06→20:39)
[2019-12-05] MEDS: ISOSORBIDE MONONITRATE 30 MG TABLET PO SCH (10:08)
[2019-12-05] MEDS: cloNIDine 0.2 MG/24 HR PATCH TRANSDERM SCH (10:08)
[2019-12-05] MEDS ORDERED: VANCOMYCIN INJ 750 MG in SODIUM CHLORIDE 0.9% 250 ML IV PRN (12:16)
[2019-12-05] MEDS ORDERED: LORazepam 2 MG/1 ML VIAL IV PRN (12:25)
[2019-12-05 13:07] LABS: INR 1.2; PT Patient Result 12.3 SECS (9.8-11.9)
[2019-12-05 14:26] LABS: Hematocrit 23.7 VOL% (35.7-47.0); Hemoglobin 7.1 GM/DL (12.0-16.0)
[2019-12-05 16:23] LABS: Total Protein,Body Fluid 3.3 G/DL
[2019-12-05 16:45] LABS: Eosinophils,Pleural Fluid 4 %; Lymphocytes,Pleural Fluid 19 %; Monocytes,Pleural Fluid 9 %; Neutrophils,Pleural Fluid 68 %; RBC,Pleural Fluid 3880 T/CUMM
[2019-12-06 06:11] LABS: Basophils % 0.1 % (0.0-0.8); Eosinophils # 0.3 10*3/uL (0.0-0.87); Eosinophils % 3.9 % (0.00-10.9); Hematocrit 24.2 VOL% (35.7-47.0); Hemoglobin 7.4 GM/DL (12.0-16.0); Immature Granulocytes % 0.9 %; Immature Granulocytes Absolute 0.07 #; Lymphocytes # 1.1 10*3/uL (1.4-4.0); Lymphocytes % 14.7 % (21.3-54.2); Mean Corpuscular HGB Conc 30.6 GM/DL (32-36); Mean Corpuscular Volume 96.8 FL (87-102); Mean Platelet Volume 10.6 FL (9.6-12.0); Monocytes % 8.6 % (1.7-12.7); Neutrophils % 71.8 % (38.7-73.9); Platelet Count 205 T/CUMM (130-400); Red Cell Distribution Width 15.9 % (9.3-17.3); White Blood Count 7.7 T/CUMM (4-12)
[2019-12-06 06:27] LABS: Calcium 8.4 MG/DL (8.5-10.1)
[2019-12-06] MEDS: PANTOPRAZOLE 40 MG TABLET PO SCH (12:28)
[2019-12-06] MEDS: ISOSORBIDE MONONITRATE 30 MG TABLET PO SCH (12:28)
[2019-12-06] MEDS: minoxidiL 2.5 MG TABLET PO SCH ×2 (12:28→21:16)
[2019-12-06] MEDS: amLODIPine 10 MG TABLET PO SCH (12:28)
[2019-12-06] MEDS: carvediloL 25 MG TABLET PO SCH ×2 (12:28→17:54)
[2019-12-06] MEDS: VANCOMYCIN INJ 750 MG in SODIUM CHLORIDE 0.9% 250 ML IV ONE ×2 (17:54→18:21)
[2019-12-06] MEDS: ACETAMINOPHEN 325 MG TABLET PO PRN (17:54)
[2019-12-07 06:26] LABS: Basophils % 0.3 % (0.0-0.8); Eosinophils # 0.3 10*3/uL (0.0-0.87); Eosinophils % 4.9 % (0.00-10.9); Hematocrit 26.6 VOL% (35.7-47.0); Hemoglobin 8.2 GM/DL (12.0-16.0); Immature Granulocytes % 0.6 %; Immature Granulocytes Absolute 0.04 #; Lymphocytes % 16.6 % (21.3-54.2); Mean Corpuscular HGB Conc 30.8 GM/DL (32-36); Mean Corpuscular Volume 95.3 FL (87-102); Mean Platelet Volume 10.5 FL (9.6-12.0); Monocytes % 11.5 % (1.7-12.7); Neutrophils % 66.1 % (38.7-73.9); Platelet Count 172 T/CUMM (130-400); Red Blood Count 2.79 MC/CUMM (3.8-5.5); Red Cell Distribution Width 16.1 % (9.3-17.3); White Blood Count 6.3 T/CUMM (4-12)
[2019-12-07 07:53] VITALS: BP 135/68
[2019-12-07] MEDS: ISOSORBIDE MONONITRATE 30 MG TABLET PO SCH (08:44)
[2019-12-07] MEDS: minoxidiL 2.5 MG TABLET PO SCH (08:44)
[2019-12-07] MEDS: PANTOPRAZOLE 40 MG TABLET PO SCH (08:44)
[2019-12-07] MEDS: amLODIPine 10 MG TABLET PO SCH (08:44)
[2019-12-07] MEDS: carvediloL 25 MG TABLET PO SCH (08:44)
[2019-12-07] MEDS ORDERED: cefTRIAXone 1,000 MG in SYRINGE 1 EACH IV SCH (09:00)
[2019-12-07] MEDS ORDERED: LACTULOSE 20 GM/30 ML UDCUP PO PRN (09:57)
== END 2019-12-07 16:55 | disposition home or self-care (01) | DRG 139 ==
LOC: EDUNIT# → EDBD → N.ED 21:50 → N.EDINP 23:20 → SUATTDRO 23:20 → N.3E 23:50 → N.2E 11-28 01:15 → N.TELEN 12-04 16:45
PROVIDERS: ADMIT Family Medicine; ATTEND Internal Medicine

== ENCOUNTER 2019-12-24 22:06 | Observation (INO) ==
[2019-12-24 23:34] LABS: Basophils % 0.4 % (0.0-0.8); Eosinophils # 0.5 10*3/uL (0.0-0.87); Eosinophils % 8.9 % (0.00-10.9); Hematocrit 25.5 VOL% (35.7-47.0); Hemoglobin 7.8 GM/DL (12.0-16.0); Immature Granulocytes % 0.5 %; Immature Granulocytes Absolute 0.03 #; Lymphocytes # 1.3 10*3/uL (1.4-4.0); Mean Corpuscular HGB Conc 30.6 GM/DL (32-36); Mean Corpuscular Volume 95.1 FL (87-102); Mean Platelet Volume 11.2 FL (9.6-12.0); Monocytes % 9.3 % (1.7-12.7); Neutrophils % 56.9 % (38.7-73.9); Platelet Count 92 T/CUMM (130-400); Red Blood Count 2.68 MC/CUMM (3.8-5.5); Red Cell Distribution Width 16.1 % (9.3-17.3); White Blood Count 5.6 T/CUMM (4-12)
[2019-12-24 23:52] LABS: Alanine Aminotransferase 19 U/L (13-56); Albumin 2.4 G/DL (3.4-5.0); Alkaline Phosphatase 93 U/L (45-117); Aspartate Amino Transferase 30 U/L (0-37); Bilirubin,Total < 0.39 MG/DL (0.2-1.0); Blood Urea Nitrogen 26 MG/DL (7-18); Estimated Glom Filtration Rate 12 ML/MIN; Glucose 113 MG/DL (74-106); Osmolality,Calculated 282.5 MOS/KG (273-304); Total Protein 6.9 G/DL (6.4-8.3)
[2019-12-24 23:53] LABS: Troponin I 0.081 NG/ML (0.00-0.045)
[2019-12-24 23:59] LABS: INR 1.2; PT Patient Result 12.4 SECS (9.8-11.9); Partial Thromboplastin Time 33.7 SECS (23.9-33.8)
[2019-12-25] MEDS ORDERED: DOCUSATE SODIUM 100 MG CAPSULE PO PRN (01:21)
[2019-12-25] MEDS ORDERED: ACETAMINOPHEN 325 MG TABLET PO PRN (01:21)
[2019-12-25] MEDS ORDERED: ONDANSETRON 4 MG/2 ML VIAL IV PRN (01:21)
[2019-12-25] MEDS ORDERED: cloNIDine 0.1 MG TABLET ONE (01:26)
[2019-12-25] MEDS: cloNIDine 0.1 MG TABLET PO PRN ×2 (01:34→04:18)
[2019-12-25] MEDS ORDERED: POTASSIUM CHLORIDE 20 MEQ TABLET PO STA (01:52)
[2019-12-25] MEDS ORDERED: MORPHINE 4 MG/1 ML VIAL IV ONE (02:02)
[2019-12-25] MEDS ORDERED: POTASSIUM CHLORIDE 20 MEQ TABLET PO ONE (02:06)
[2019-12-25] MEDS ORDERED: MORPHINE 4 MG/1 ML VIAL ONE (02:07)
[2019-12-25 03:12] LABS: Troponin I 0.077 NG/ML (0.00-0.045)
[2019-12-25 04:12] LABS: Eosinophils 10 % (0-10); Lymphocytes 29 % (20-55); Segmented Neutrophils 57 % (50-85); Total Cells Counted 100
[2019-12-25 04:13] LABS: Anisocytosis 1+; Ovalocytes 1+; Platelet Estimate Decreased
[2019-12-25] MEDS: guaiFENesin 200 MG/10 ML UDCUP PO PRN ×4 (04:18→21:09)
[2019-12-25] MEDS: HEPARIN 5,000 UNIT/1 ML VIAL SUBCUT SCH ×3 (04:18→21:10)
[2019-12-25 06:29] LABS: Barbiturates Screen,Urine Negative (Negative); Benzodiazepines Screen,Urine Negative (Negative); Cannabinoid Screen,Urine Negative (Negative); Opiate Screen,Urine Negative (Negative); Phencyclidine Screen,Urine Negative (Negative)
[2019-12-25 06:31] LABS: Troponin I 0.078 NG/ML (0.00-0.045)
[2019-12-25] MEDS: carvediloL 25 MG TABLET PO SCH ×2 (08:42→21:09)
[2019-12-25] MEDS: PANTOPRAZOLE 40 MG TABLET PO SCH (08:42)
[2019-12-25] MEDS: amLODIPine 10 MG TABLET PO SCH (08:42)
[2019-12-25] MEDS: ISOSORBIDE MONONITRATE 30 MG TABLET PO SCH (08:42)
[2019-12-25] MEDS ORDERED: cloNIDine 0.2 MG/24 HR PATCH TRANSDERM SCH (09:00)
[2019-12-25] MEDS ORDERED: EPOETIN ALFA-EPBX 2,000 UNIT/ML VIAL IV PRN (11:54)
[2019-12-25] MEDS ORDERED: HEPARIN 10,000 UNIT/10 ML VIAL IV SCH (14:45)
[2019-12-25 16:59] LABS: Hepatitis B Core IgM Quant 0.42 Index; Hepatitis B Surface Ag Quant < 0.10 Index; Hepatitis B Surface Ag Result Negative (Negative); Hepatitis C Virus Ab Quant > 11.00 Index; Hepatitis C Virus Ab Result Positive (Negative)
[2019-12-25] MEDS ORDERED: hydrALAZINE 20 MG/1 ML VIAL IV PRN (22:34)
[2019-12-25] MEDS ORDERED: CLORAZEPATE 3.75 MG TABLET PO PRN (22:35)
[2019-12-25] MEDS ORDERED: diphenhydrAMINE CAP 25 MG CAPSULE PO PRN (23:12)
[2019-12-25] MEDS ORDERED: LORazepam 2 MG/1 ML VIAL IV ONE (23:20)
[2019-12-25] MEDS ORDERED: diphenhydrAMINE 50 MG/1 ML VIAL IV ONE (23:20)
[2019-12-25] MEDS ORDERED: methylPREDNISolone SOD SUC 40 MG/1 ML VIAL IV ONE (23:30)
[2019-12-26] MEDS: HEPARIN 5,000 UNIT/1 ML VIAL SUBCUT SCH ×2 (05:54→11:35)
[2019-12-26 05:56] LABS: Basophils % 0.1 % (0.0-0.8); Eosinophils % 0.3 % (0.00-10.9); Hematocrit 25.6 VOL% (35.7-47.0); Hemoglobin 7.9 GM/DL (12.0-16.0); Immature Granulocytes % 0.8 %; Immature Granulocytes Absolute 0.09 #; Lymphocytes # 0.4 10*3/uL (1.4-4.0); Lymphocytes % 3.4 % (21.3-54.2); Mean Corpuscular HGB Conc 30.9 GM/DL (32-36); Mean Corpuscular Volume 95.9 FL (87-102); Mean Platelet Volume 11.8 FL (9.6-12.0); Monocytes % 3.6 % (1.7-12.7); Neutrophils % 91.8 % (38.7-73.9); Red Blood Count 2.67 MC/CUMM (3.8-5.5); Red Cell Distribution Width 16.1 % (9.3-17.3); White Blood Count 11.8 T/CUMM (4-12)
[2019-12-26 05:57] LABS: Platelet Count 91 T/CUMM (130-400)
[2019-12-26 06:08] LABS: Calcium 8.3 MG/DL (8.5-10.1)
[2019-12-26 06:57] LABS: Band Neutrophils 27 % (0-10); Eosinophils 1 % (0-10); Lymphocytes 4 % (20-55); Platelet Estimate Decreased; Segmented Neutrophils 65 % (50-85); Total Cells Counted 100
[2019-12-26 06:58] LABS: Anisocytosis 2+; Macrocytosis 1+
[2019-12-26] MEDS: ISOSORBIDE MONONITRATE 30 MG TABLET PO SCH (08:41)
[2019-12-26] MEDS: carvediloL 25 MG TABLET PO SCH (08:41)
[2019-12-26] MEDS: PANTOPRAZOLE 40 MG TABLET PO SCH (08:41)
[2019-12-26] MEDS: amLODIPine 10 MG TABLET PO SCH (08:41)
[2019-12-26 12:29] VITALS: BP 141/79
== END 2019-12-26 13:15 | disposition home or self-care (01) ==
LOC: EDUNIT# → EDBD → N.ED 22:06 → N.EDINP 22:06 → N.TELES 12-25 01:34
PROVIDERS: ADMIT Family Medicine; ATTEND Family Medicine

== ENCOUNTER 2019-12-27 22:39 | Inpatient (IN) ==
[2019-12-27] MEDS ORDERED: ONDANSETRON 4 MG/2 ML VIAL IV ONE (22:46)
[2019-12-27] MEDS ORDERED: MORPHINE 4 MG/1 ML VIAL IV ONE (22:46)
[2019-12-27] MEDS ORDERED: VANCOMYCIN INJ 1,000 MG in SODIUM CHLORIDE 0.9% 250 ML IV STA (23:06)
[2019-12-27] MEDS ORDERED: PIPERACILLIN/TAZOBACTAM 3,375 MG in SODIUM CHLORIDE 0.9% 100 ML IV STA (23:06)
[2019-12-27 23:28] LABS: Basophils % 0.2 % (0.0-0.8); Eosinophils # 0.2 10*3/uL (0.0-0.87); Eosinophils % 3.6 % (0.00-10.9); Hematocrit 34.9 VOL% (35.7-47.0); Hemoglobin 10.9 GM/DL (12.0-16.0); Immature Granulocytes % 0.7 %; Immature Granulocytes Absolute 0.04 #; Lymphocytes # 1.3 10*3/uL (1.4-4.0); Lymphocytes % 21.5 % (21.3-54.2); Mean Corpuscular HGB Conc 31.2 GM/DL (32-36); Mean Corpuscular Volume 94.6 FL (87-102); Mean Platelet Volume 12.2 FL (9.6-12.0); Monocytes % 8.2 % (1.7-12.7); Neutrophils % 65.8 % (38.7-73.9); Platelet Count 119 T/CUMM (130-400); Red Blood Count 3.69 MC/CUMM (3.8-5.5); Red Cell Distribution Width 16.6 % (9.3-17.3); White Blood Count 6.1 T/CUMM (4-12)
[2019-12-27 23:35] LABS: Alanine Aminotransferase 25 U/L (13-56); Albumin 2.7 G/DL (3.4-5.0); Alkaline Phosphatase 109 U/L (45-117); Aspartate Amino Transferase 39 U/L (0-37); Blood Urea Nitrogen 15 MG/DL (7-18); Estimated Glom Filtration Rate 18 ML/MIN; Glucose 115 MG/DL (74-106); Total Protein 7.4 G/DL (6.4-8.3)
[2019-12-27 23:36] LABS: Troponin I 0.054 NG/ML (0.00-0.045)
[2019-12-27 23:38] LABS: INR 1.1; PT Patient Result 11.9 SECS (9.8-11.9)
[2019-12-28] MEDS ORDERED: ACETAMINOPHEN 325 MG TABLET PO PRN (01:16)
[2019-12-28] MEDS ORDERED: DOCUSATE SODIUM 100 MG CAPSULE PO PRN (01:16)
[2019-12-28] MEDS ORDERED: hydrALAZINE 20 MG/1 ML VIAL IV PRN (01:16)
[2019-12-28] MEDS ORDERED: VANCOMYCIN INJ 750 MG in SODIUM CHLORIDE 0.9% 250 ML IV PRN (01:20)
[2019-12-28] MEDS ORDERED: cloNIDine 0.1 MG TABLET PO PRN (01:21)
[2019-12-28] MEDS ORDERED: LEVOFLOXACIN INJ 750 MG in PREMIX 1 EACH IV ONE (01:30)
[2019-12-28 02:25] LABS: Ferritin 458.4 ng/ml (8-252)
[2019-12-28] MEDS: MORPHINE 4 MG/1 ML VIAL IV PRN ×2 (04:52→21:03)
[2019-12-28] MEDS: ONDANSETRON 4 MG/2 ML VIAL IV PRN ×2 (04:52→21:03)
[2019-12-28 05:51] LABS: Basophils % 0.2 % (0.0-0.8); Eosinophils # 0.3 10*3/uL (0.0-0.87); Eosinophils % 5.4 % (0.00-10.9); Hematocrit 26.8 VOL% (35.7-47.0); Hemoglobin 8.2 GM/DL (12.0-16.0); Immature Granulocytes % 0.5 %; Immature Granulocytes Absolute 0.03 #; Lymphocytes # 1.5 10*3/uL (1.4-4.0); Lymphocytes % 23.4 % (21.3-54.2); Mean Corpuscular HGB Conc 30.6 GM/DL (32-36); Monocytes % 8.1 % (1.7-12.7); Neutrophils % 62.4 % (38.7-73.9); Platelet Count 132 T/CUMM (130-400); Red Blood Count 2.82 MC/CUMM (3.8-5.5); Red Cell Distribution Width 16.5 % (9.3-17.3); White Blood Count 6.3 T/CUMM (4-12)
[2019-12-28] MEDS ORDERED: VANCOMYCIN INJ 1,000 MG in SODIUM CHLORIDE 0.9% 250 ML IV ONE (06:00)
[2019-12-28 06:11] LABS: Calcium 8.2 MG/DL (8.5-10.1); Osmolality,Calculated 277.7 MOS/KG (273-304)
[2019-12-28] MEDS: HEPARIN 5,000 UNIT/1 ML VIAL SUBCUT SCH ×3 (06:52→22:12)
[2019-12-28] MEDS: PIPERACILLIN/TAZOBACTAM 3,375 MG in SODIUM CHLORIDE 0.9% 100 ML IV SCH ×2 (07:45→20:46)
[2019-12-28] MEDS ORDERED: cloNIDine 0.2 MG/24 HR PATCH TRANSDERM SCH (09:00)
[2019-12-28] MEDS: amLODIPine 10 MG TABLET PO SCH (09:27)
[2019-12-28] MEDS: carvediloL 25 MG TABLET PO SCH ×2 (09:27→17:34)
[2019-12-28] MEDS: PANTOPRAZOLE 40 MG TABLET PO SCH (09:27)
[2019-12-28] MEDS: ISOSORBIDE MONONITRATE 30 MG TABLET PO SCH (09:34)
[2019-12-28] MEDS ORDERED: diphenhydrAMINE CAP 25 MG CAPSULE PO PRN (11:29)
[2019-12-28] MEDS: CALCIUM CARBONATE CHEW 500 MG TABLET PO PRN (18:38)
[2019-12-29 05:56] LABS: Basophils % 0.4 % (0.0-0.8); Eosinophils # 0.5 10*3/uL (0.0-0.87); Eosinophils % 8.5 % (0.00-10.9); Hematocrit 25.8 VOL% (35.7-47.0); Immature Granulocytes % 1.3 %; Immature Granulocytes Absolute 0.07 #; Lymphocytes # 1.2 10*3/uL (1.4-4.0); Lymphocytes % 22.2 % (21.3-54.2); Mean Corpuscular Volume 95.2 FL (87-102); Mean Platelet Volume 11.9 FL (9.6-12.0); Monocytes % 8.9 % (1.7-12.7); Neutrophils % 58.7 % (38.7-73.9); Platelet Count 128 T/CUMM (130-400); Red Blood Count 2.71 MC/CUMM (3.8-5.5); Red Cell Distribution Width 16.3 % (9.3-17.3); White Blood Count 5.5 T/CUMM (4-12)
[2019-12-29 06:07] LABS: Calcium 8.1 MG/DL (8.5-10.1); Osmolality,Calculated 278.8 MOS/KG (273-304)
[2019-12-29] MEDS: HEPARIN 5,000 UNIT/1 ML VIAL SUBCUT SCH ×3 (06:50→23:31)
[2019-12-29 08:12] LABS: Anisocytosis 2+; Eosinophils 14 % (0-10); Lymphocytes 27 % (20-55); Platelet Estimate Adequate; Segmented Neutrophils 51 % (50-85); Total Cells Counted 100
[2019-12-29 08:13] LABS: Macrocytosis 1+; Poikilocytosis Slight
[2019-12-29] MEDS: carvediloL 25 MG TABLET PO SCH ×2 (09:22→16:18)
[2019-12-29] MEDS: PANTOPRAZOLE 40 MG TABLET PO SCH (09:23)
[2019-12-29] MEDS: ISOSORBIDE MONONITRATE 30 MG TABLET PO SCH (09:23)
[2019-12-29] MEDS: PIPERACILLIN/TAZOBACTAM 3,375 MG in SODIUM CHLORIDE 0.9% 100 ML IV SCH ×2 (09:24→20:45)
[2019-12-29] MEDS: amLODIPine 10 MG TABLET PO SCH (09:24)
[2019-12-29] MEDS: MORPHINE 4 MG/1 ML VIAL IV PRN ×2 (14:26→21:34)
[2019-12-29] MEDS: CALCIUM CARBONATE CHEW 500 MG TABLET PO PRN ×2 (14:28→21:36)
[2019-12-30] MEDS ORDERED: LEVOFLOXACIN INJ 500 MG in PREMIX 1 EACH IV SCH (02:00)
[2019-12-30] MEDS: HEPARIN 5,000 UNIT/1 ML VIAL SUBCUT SCH ×2 (06:03→15:59)
[2019-12-30 06:12] LABS: Basophils % 0.2 % (0.0-0.8); Eosinophils # 0.4 10*3/uL (0.0-0.87); Eosinophils % 7.6 % (0.00-10.9); Hematocrit 24.4 VOL% (35.7-47.0); Hemoglobin 7.3 GM/DL (12.0-16.0); Immature Granulocytes % 2.3 %; Immature Granulocytes Absolute 0.13 #; Lymphocytes # 1.3 10*3/uL (1.4-4.0); Lymphocytes % 23.1 % (21.3-54.2); Mean Corpuscular HGB Conc 29.9 GM/DL (32-36); Mean Platelet Volume 11.6 FL (9.6-12.0); Monocytes % 7.9 % (1.7-12.7); Neutrophils % 58.9 % (38.7-73.9); Platelet Count 129 T/CUMM (130-400); Red Blood Count 2.49 MC/CUMM (3.8-5.5); Red Cell Distribution Width 16.3 % (9.3-17.3); White Blood Count 5.5 T/CUMM (4-12)
[2019-12-30 06:42] LABS: Eosinophils 8 % (0-10); Lymphocytes 22 % (20-55); Myelocytes 1 %; Segmented Neutrophils 67 % (50-85); Total Cells Counted 100
[2019-12-30 06:43] LABS: Hypochromasia 1+; Macrocytosis 1+; Platelet Estimate Adequate; Polychromasia Slight
[2019-12-30 06:46] LABS: Calcium 8.4 MG/DL (8.5-10.1); Osmolality,Calculated 282.8 MOS/KG (273-304)
[2019-12-30] MEDS: carvediloL 25 MG TABLET PO SCH ×2 (09:37→17:53)
[2019-12-30] MEDS: PANTOPRAZOLE 40 MG TABLET PO SCH (09:37)
[2019-12-30] MEDS: amLODIPine 10 MG TABLET PO SCH (09:37)
[2019-12-30] MEDS: ISOSORBIDE MONONITRATE 30 MG TABLET PO SCH (09:37)
[2019-12-30] MEDS: PIPERACILLIN/TAZOBACTAM 3,375 MG in SODIUM CHLORIDE 0.9% 100 ML IV SCH (09:37)
[2019-12-30 12:39] VITALS: BP 159/88
== END 2019-12-30 17:51 | disposition home or self-care (01) | DRG 139 ==
LOC: EDUNIT# → N.ED 22:39 → N.EDINP 12-28 01:06 → SUATTDRO 12-28 01:06 → N.TELEN 12-28 03:30
PROVIDERS: ADMIT Family Medicine; ATTEND Internal Medicine

== ENCOUNTER 2020-01-10 03:27 | Observation (INO) ==
[2020-01-10] MEDS ORDERED: ONDANSETRON ODT 4 MG TABLET PO STA (03:49)
[2020-01-10] MEDS ORDERED: hydrALAZINE 20 MG/1 ML VIAL IV STA (03:49)
[2020-01-10] MEDS ORDERED: MORPHINE 4 MG/1 ML VIAL IV STA (03:49)
[2020-01-10] MEDS ORDERED: NITROGLYCERIN 2% OINT 1 INCH/GM PACK TOP STA (03:49)
[2020-01-10] MEDS ORDERED: FUROSEMIDE 100 MG/10 ML VIAL IV STA (03:49)
[2020-01-10] MEDS ORDERED: ASPIRIN 325 MG TABLET PO STA (03:49)
[2020-01-10] MEDS ORDERED: LABETALOL 20 MG/4 ML SYRINGE IV STA (04:27)
[2020-01-10 04:29] LABS: Basophils % 0.4 % (0.0-0.8); Eosinophils # 0.3 10*3/uL (0.0-0.87); Eosinophils % 2.9 % (0.00-10.9); Hematocrit 25.1 VOL% (35.7-47.0); Hemoglobin 7.6 GM/DL (12.0-16.0); Immature Granulocytes % 0.7 %; Immature Granulocytes Absolute 0.08 #; Lymphocytes # 1.2 10*3/uL (1.4-4.0); Lymphocytes % 11.2 % (21.3-54.2); Mean Corpuscular HGB Conc 30.3 GM/DL (32-36); Mean Platelet Volume 11.1 FL (9.6-12.0); Neutrophils % 77.8 % (38.7-73.9); Platelet Count 162 T/CUMM (130-400); Red Blood Count 2.51 MC/CUMM (3.8-5.5); White Blood Count 10.7 T/CUMM (4-12)
[2020-01-10 04:41] LABS: INR 1.1; PT Patient Result 11.9 SECS (9.8-11.9)
[2020-01-10 04:58] LABS: Albumin 2.8 G/DL (3.4-5.0); Bilirubin,Total 0.5 MG/DL (0.2-1.0); Calcium 8.8 MG/DL (8.5-10.1); Osmolality,Calculated 285.5 MOS/KG (273-304); Total Protein 7.7 G/DL (6.4-8.3)
[2020-01-10] MEDS ORDERED: MORPHINE 4 MG/1 ML VIAL IV PRN (05:19)
[2020-01-10] MEDS ORDERED: DEXTROSE 50% 25 GM/50 ML VIAL IV PRN (05:19)
[2020-01-10] MEDS ORDERED: GLUCAGON 1 MG VIAL IM PRN (05:19)
[2020-01-10] MEDS ORDERED: ONDANSETRON 4 MG/2 ML VIAL IV PRN (05:19)
[2020-01-10] MEDS ORDERED: LABETALOL 20 MG/4 ML SYRINGE IV PRN (05:31)
[2020-01-10] MEDS ORDERED: cloNIDine 0.1 MG TABLET PO PRN (05:34)
[2020-01-10] MEDS ORDERED: hydrALAZINE 20 MG/1 ML VIAL IV PRN (05:36)
[2020-01-10] MEDS: LEVOFLOXACIN 250 MG TABLET PO SCH (08:37)
[2020-01-10] MEDS: PANTOPRAZOLE 40 MG TABLET PO SCH (08:37)
[2020-01-10] MEDS: ENOXAPARIN 30 MG/0.3 ML SYRINGE SUBCUT SCH (08:37)
[2020-01-10] MEDS: ISOSORBIDE MONONITRATE 30 MG TABLET PO SCH (08:37)
[2020-01-10] MEDS: CALCIUM CARBONATE CHEW 500 MG TABLET PO SCH (08:37)
[2020-01-10] MEDS: amLODIPine 10 MG TABLET PO SCH (08:38)
[2020-01-10] MEDS: carvediloL 25 MG TABLET PO SCH ×2 (08:38→20:47)
[2020-01-10] MEDS ORDERED: PANTOPRAZOLE 40 MG TABLET PO SCH (09:00)
[2020-01-10] MEDS ORDERED: cloNIDine 0.2 MG/24 HR PATCH TRANSDERM SCH (09:00)
[2020-01-10] MEDS ORDERED: HEPARIN 10,000 UNIT/10 ML VIAL IV PRN (10:53)
[2020-01-10] MEDS: diphenhydrAMINE CAP 25 MG CAPSULE PO PRN ×2 (16:19→23:31)
[2020-01-11] MEDS: MORPHINE 4 MG/1 ML VIAL IV PRN ×2 (04:15→08:24)
[2020-01-11 05:35] LABS: Basophils % 0.1 % (0.0-0.8); Eosinophils # 0.2 10*3/uL (0.0-0.87); Eosinophils % 3.2 % (0.00-10.9); Immature Granulocytes % 0.7 %; Immature Granulocytes Absolute 0.05 #; Lymphocytes # 1.3 10*3/uL (1.4-4.0); Lymphocytes % 18.8 % (21.3-54.2); Mean Corpuscular Volume 100.5 FL (87-102); Mean Platelet Volume 11.4 FL (9.6-12.0); Monocytes % 7.8 % (1.7-12.7); Neutrophils % 69.4 % (38.7-73.9); Platelet Count 133 T/CUMM (130-400); Red Blood Count 1.99 MC/CUMM (3.8-5.5); Red Cell Distribution Width 16.7 % (9.3-17.3); White Blood Count 6.8 T/CUMM (4-12)
[2020-01-11 05:53] LABS: Albumin 2.5 G/DL (3.4-5.0); Bilirubin,Total 0.5 MG/DL (0.2-1.0); Calcium 8.5 MG/DL (8.5-10.1); Osmolality,Calculated 282.7 MOS/KG (273-304); Total Protein 6.8 G/DL (6.4-8.3)
[2020-01-11] MEDS ORDERED: SODIUM CHLORIDE 0.9% 1,000 ML IV PRN (06:22)
[2020-01-11] MEDS: ISOSORBIDE MONONITRATE 30 MG TABLET PO SCH (08:14)
[2020-01-11] MEDS: CALCIUM CARBONATE CHEW 500 MG TABLET PO SCH (08:14)
[2020-01-11] MEDS: ENOXAPARIN 30 MG/0.3 ML SYRINGE SUBCUT SCH (08:14)
[2020-01-11] MEDS: PANTOPRAZOLE 40 MG TABLET PO SCH (08:14)
[2020-01-11] MEDS: carvediloL 25 MG TABLET PO SCH ×2 (08:14→21:19)
[2020-01-11] MEDS: amLODIPine 10 MG TABLET PO SCH (08:14)
[2020-01-11] MEDS ORDERED: FUROSEMIDE 20 MG/2 ML VIAL IV ONE (09:09)
[2020-01-11 11:52] LABS: Hypochromasia 2+; Microcytosis 2+
[2020-01-11 11:53] LABS: Basophilic Stippling Few; Macrocytosis 1+; Platelet Estimate Normal
[2020-01-11] MEDS: GABAPENTIN 100 MG CAPSULE PO SCH ×3 (15:35→21:18)
[2020-01-11] MEDS ORDERED: SODIUM BICARBONATE 650 MG TABLET PO ONE (16:11)
[2020-01-11] MEDS: METHOCARBAMOL 750 MG TABLET PO PRN (16:22)
[2020-01-11] MEDS: ASPIRIN EC 81 MG TABLET PO SCH (16:22)
[2020-01-11] MEDS: diphenhydrAMINE CAP 25 MG CAPSULE PO PRN (16:26)
[2020-01-11 17:10] LABS: Hematocrit 28.6 VOL% (35.7-47.0); Hemoglobin 8.7 GM/DL (12.0-16.0)
[2020-01-12] MEDS: MORPHINE 4 MG/1 ML VIAL IV PRN ×2 (00:15→21:53)
[2020-01-12] MEDS: diphenhydrAMINE CAP 25 MG CAPSULE PO PRN ×2 (02:30→10:34)
[2020-01-12] MEDS: ISOSORBIDE MONONITRATE 30 MG TABLET PO SCH (08:10)
[2020-01-12] MEDS: carvediloL 25 MG TABLET PO SCH ×2 (08:10→21:53)
[2020-01-12] MEDS: ASPIRIN EC 81 MG TABLET PO SCH (08:10)
[2020-01-12] MEDS: ENOXAPARIN 30 MG/0.3 ML SYRINGE SUBCUT SCH (08:10)
[2020-01-12] MEDS: LEVOFLOXACIN 250 MG TABLET PO SCH (08:10)
[2020-01-12] MEDS: GABAPENTIN 100 MG CAPSULE PO SCH ×3 (08:10→21:52)
[2020-01-12] MEDS: CALCIUM CARBONATE CHEW 500 MG TABLET PO SCH (08:10)
[2020-01-12] MEDS: PANTOPRAZOLE 40 MG TABLET PO SCH (08:11)
[2020-01-12] MEDS: amLODIPine 10 MG TABLET PO SCH (08:11)
[2020-01-13 05:49] LABS: Basophils % 0.2 % (0.0-0.8); Eosinophils # 0.2 10*3/uL (0.0-0.87); Eosinophils % 2.9 % (0.00-10.9); Hematocrit 23.6 VOL% (35.7-47.0); Hemoglobin 7.4 GM/DL (12.0-16.0); Immature Granulocytes % 0.8 %; Immature Granulocytes Absolute 0.05 #; Lymphocytes # 1.3 10*3/uL (1.4-4.0); Lymphocytes % 19.3 % (21.3-54.2); Mean Corpuscular HGB Conc 31.4 GM/DL (32-36); Mean Corpuscular Volume 98.7 FL (87-102); Mean Platelet Volume 11.3 FL (9.6-12.0); Monocytes % 10.8 % (1.7-12.7); Platelet Count 135 T/CUMM (130-400); Red Blood Count 2.39 MC/CUMM (3.8-5.5); Red Cell Distribution Width 16.8 % (9.3-17.3); White Blood Count 6.5 T/CUMM (4-12)
[2020-01-13] MEDS ORDERED: SODIUM CHLORIDE 0.9% 1,000 ML IV PRN (07:55)
[2020-01-13] MEDS: MORPHINE 4 MG/1 ML VIAL IV PRN ×2 (13:22→21:49)
[2020-01-13] MEDS ORDERED: MAGNESIUM HYDROXIDE SUSP 30 ML UDCUP PO PRN (13:26)
[2020-01-13] MEDS: PANTOPRAZOLE 40 MG TABLET PO SCH (13:26)
[2020-01-13] MEDS: amLODIPine 10 MG TABLET PO SCH (13:27)
[2020-01-13] MEDS: ASPIRIN EC 81 MG TABLET PO SCH (13:27)
[2020-01-13] MEDS: GABAPENTIN 100 MG CAPSULE PO SCH ×3 (13:27→21:20)
[2020-01-13] MEDS: ISOSORBIDE MONONITRATE 30 MG TABLET PO SCH (13:27)
[2020-01-13] MEDS: CALCIUM CARBONATE CHEW 500 MG TABLET PO SCH (13:27)
[2020-01-13] MEDS: carvediloL 25 MG TABLET PO SCH ×2 (13:27→21:20)
[2020-01-13] MEDS: ENOXAPARIN 30 MG/0.3 ML SYRINGE SUBCUT SCH (13:28)
[2020-01-13] MEDS ORDERED: LACTULOSE 20 GM/30 ML UDCUP PO ONE (13:32)
[2020-01-13] MEDS ORDERED: BISACODYL 5 MG TABLET PO ONE (13:34)
[2020-01-13] MEDS: METHOCARBAMOL 750 MG TABLET PO PRN (13:44)
[2020-01-13 16:37] LABS: Hemoglobin 10.5 GM/DL (12.0-16.0)
[2020-01-13] MEDS: diphenhydrAMINE CAP 25 MG CAPSULE PO PRN (18:35)
[2020-01-14] MEDS: MORPHINE 4 MG/1 ML VIAL IV PRN (04:50)
[2020-01-14 05:54] LABS: Hematocrit 31.4 VOL% (35.7-47.0); Hemoglobin 10.2 GM/DL (12.0-16.0)
[2020-01-14 08:42] LABS: Barbiturates Screen,Urine Negative (Negative); Benzodiazepines Screen,Urine Negative (Negative); Cannabinoid Screen,Urine Negative (Negative); Opiate Screen,Urine Positive (Negative); Phencyclidine Screen,Urine Negative (Negative)
[2020-01-14] MEDS: amLODIPine 10 MG TABLET PO SCH (10:06)
[2020-01-14] MEDS: CALCIUM CARBONATE CHEW 500 MG TABLET PO SCH (10:06)
[2020-01-14] MEDS: carvediloL 25 MG TABLET PO SCH (10:06)
[2020-01-14] MEDS: PANTOPRAZOLE 40 MG TABLET PO SCH (10:06)
[2020-01-14] MEDS: ENOXAPARIN 30 MG/0.3 ML SYRINGE SUBCUT SCH (10:06)
[2020-01-14] MEDS: ISOSORBIDE MONONITRATE 30 MG TABLET PO SCH (10:06)
[2020-01-14] MEDS: diphenhydrAMINE CAP 25 MG CAPSULE PO PRN (10:06)
[2020-01-14] MEDS: ASPIRIN EC 81 MG TABLET PO SCH (10:06)
[2020-01-14] MEDS: LEVOFLOXACIN 250 MG TABLET PO SCH (10:06)
[2020-01-14] MEDS: GABAPENTIN 100 MG CAPSULE PO SCH ×2 (10:06→14:46)
[2020-01-14 11:38] VITALS: BP 131/76
== END 2020-01-14 15:20 | disposition home or self-care (01) ==
LOC: EDUNIT# → EDBD → N.EDINP 03:27 → N.ED 03:27 → SUATTDRO 05:19 → N.EDINP 07:10 → N.TELES 07:34
PROVIDERS: ADMIT Family Medicine; ATTEND Internal Medicine

== ENCOUNTER 2020-02-08 20:26 | Inpatient (IN) ==
[2020-02-08 21:28] LABS: Basophils % 0.4 % (0.0-0.8); Eosinophils # 0.8 10*3/uL (0.0-0.87); Eosinophils % 10.8 % (0.00-10.9); Hematocrit 29.6 VOL% (35.7-47.0); Hemoglobin 9.1 GM/DL (12.0-16.0); Immature Granulocytes % 1.1 %; Immature Granulocytes Absolute 0.08 #; Lymphocytes % 27.1 % (21.3-54.2); Mean Corpuscular HGB Conc 30.7 GM/DL (32-36); Mean Corpuscular Volume 99.7 FL (87-102); Mean Platelet Volume 11.3 FL (9.6-12.0); Monocytes % 12.7 % (1.7-12.7); Neutrophils % 47.9 % (38.7-73.9); Platelet Count 113 T/CUMM (130-400); Red Blood Count 2.97 MC/CUMM (3.8-5.5); Red Cell Distribution Width 18.4 % (9.3-17.3); White Blood Count 7.3 T/CUMM (4-12)
[2020-02-08] MEDS ORDERED: MORPHINE 4 MG/1 ML VIAL ONE (21:30)
[2020-02-08] MEDS ORDERED: MORPHINE 4 MG/1 ML VIAL IV STA ×2 (21:30→23:01)
[2020-02-08 21:46] LABS: PT Patient Result 10.9 SECS (9.8-11.9)
[2020-02-08 21:48] LABS: Band Neutrophils 1 % (0-10); Eosinophils 14 % (0-10); Lymphocytes 28 % (20-55); Nucleated Red Blood Cells 6 (0-5); Platelet Estimate Adequate; Segmented Neutrophils 47 % (50-85); Total Cells Counted 100
[2020-02-08 21:59] LABS: Alanine Aminotransferase 22 U/L (13-56); Albumin 2.5 G/DL (3.4-5.0); Alkaline Phosphatase 147 U/L (45-117); Aspartate Amino Transferase 51 U/L (0-37); Bilirubin,Total < 0.39 MG/DL (0.2-1.0); Blood Urea Nitrogen 37 MG/DL (7-18); Calcium 8.7 MG/DL (8.5-10.1); Estimated Glom Filtration Rate 12 ML/MIN; Glucose 103 MG/DL (74-106); Osmolality,Calculated 281.8 MOS/KG (273-304); Total Protein 7.9 G/DL (6.4-8.3)
[2020-02-08 22:00] LABS: Troponin I 0.076 NG/ML (0.00-0.045)
[2020-02-08] MEDS ORDERED: NITROGLYCERIN SL 0.4 MG TABLET SL STA (23:01)
[2020-02-08] MEDS ORDERED: cloNIDine 0.1 MG TABLET PO PRN (23:01)
[2020-02-08] MEDS ORDERED: hydrALAZINE 20 MG/1 ML VIAL IV PRN (23:02)
[2020-02-08] MEDS ORDERED: DOCUSATE SODIUM 100 MG CAPSULE PO PRN (23:02)
[2020-02-08] MEDS ORDERED: NITROGLYCERIN SL 0.4 MG TABLET SL PRN (23:12)
[2020-02-08] MEDS ORDERED: HEPARIN 5,000 UNIT/1 ML VIAL SUBCUT SCH (23:30)
[2020-02-09] MEDS: POTASSIUM CHLORIDE 20 MEQ TABLET PO SCH ×3 (02:03→21:11)
[2020-02-09] MEDS: cloNIDine 0.2 MG/24 HR PATCH TRANSDERM SCH ×2 (02:03→10:21)
[2020-02-09] MEDS: carvediloL 25 MG TABLET PO SCH ×3 (02:03→16:58)
[2020-02-09] MEDS: MORPHINE 4 MG/1 ML VIAL IV PRN ×3 (04:24→21:10)
[2020-02-09 06:06] LABS: Basophils % 0.3 % (0.0-0.8); Eosinophils # 0.9 10*3/uL (0.0-0.87); Eosinophils % 12.7 % (0.00-10.9); Hematocrit 29.1 VOL% (35.7-47.0); Immature Granulocytes % 0.7 %; Immature Granulocytes Absolute 0.05 #; Lymphocytes # 1.3 10*3/uL (1.4-4.0); Lymphocytes % 18.5 % (21.3-54.2); Mean Corpuscular HGB Conc 30.9 GM/DL (32-36); Mean Corpuscular Volume 98.6 FL (87-102); Mean Platelet Volume 12.4 FL (9.6-12.0); Monocytes % 9.9 % (1.7-12.7); Neutrophils % 57.9 % (38.7-73.9); Platelet Count 101 T/CUMM (130-400); Red Blood Count 2.95 MC/CUMM (3.8-5.5); Red Cell Distribution Width 18.5 % (9.3-17.3); White Blood Count 7.1 T/CUMM (4-12)
[2020-02-09 06:30] LABS: Albumin 2.6 G/DL (3.4-5.0); Bilirubin,Total 0.5 MG/DL (0.2-1.0); Calcium 8.8 MG/DL (8.5-10.1); Total Protein 7.7 G/DL (6.4-8.3)
[2020-02-09 07:14] LABS: Eosinophils 4 % (0-10); Lymphocytes 15 % (20-55); Segmented Neutrophils 70 % (50-85); Total Cells Counted 100
[2020-02-09 07:15] LABS: Anisocytosis 2+; Atypical Lymphocytes Few; Macrocytosis 1+; Microcytosis 1+; Ovalocytes Few; Platelet Estimate Adequate; Polychromasia Slight; Tear Drop Cells Few
[2020-02-09] MEDS: ASPIRIN EC 81 MG TABLET PO SCH (10:06)
[2020-02-09] MEDS: amLODIPine 10 MG TABLET PO SCH (10:06)
[2020-02-09] MEDS: ISOSORBIDE MONONITRATE 30 MG TABLET PO SCH (10:07)
[2020-02-09] MEDS: diphenhydrAMINE CAP 25 MG CAPSULE PO PRN ×3 (10:41→23:54)
[2020-02-09] MEDS: SKIN HEALING OINT (AQUAPHOR) 50 GM TUBE TOP PRN (10:41)
[2020-02-09] MEDS ORDERED: EPOETIN ALFA-EPBX 2,000 UNIT/ML VIAL IV PRN (10:51)
[2020-02-09] MEDS: PIPERACILLIN/TAZOBACTAM 3,375 MG in SODIUM CHLORIDE 0.9% 100 ML IV SCH (15:15)
[2020-02-09] MEDS ORDERED: DOXAZOSIN 1 MG TABLET PO SCH (21:00)
[2020-02-10 03:05] LABS: Barbiturates Screen,Urine Negative (Negative); Benzodiazepines Screen,Urine Negative (Negative); Cannabinoid Screen,Urine Negative (Negative); Opiate Screen,Urine Positive (Negative); Phencyclidine Screen,Urine Negative (Negative)
[2020-02-10] MEDS: PIPERACILLIN/TAZOBACTAM 3,375 MG in SODIUM CHLORIDE 0.9% 100 ML IV SCH ×2 (03:15→17:05)
[2020-02-10 06:31] LABS: Basophils % 0.2 % (0.0-0.8); Eosinophils # 0.7 10*3/uL (0.0-0.87); Hematocrit 26.2 VOL% (35.7-47.0); Immature Granulocytes % 0.6 %; Immature Granulocytes Absolute 0.03 #; Mean Corpuscular HGB Conc 30.5 GM/DL (32-36); Mean Corpuscular Volume 101.2 FL (87-102); Mean Platelet Volume 11.4 FL (9.6-12.0); Monocytes % 6.6 % (1.7-12.7); Neutrophils % 59.6 % (38.7-73.9); Platelet Count 111 T/CUMM (130-400); Red Blood Count 2.59 MC/CUMM (3.8-5.5); Red Cell Distribution Width 17.8 % (9.3-17.3); White Blood Count 5.2 T/CUMM (4-12)
[2020-02-10 06:52] LABS: Albumin 2.4 G/DL (3.4-5.0); Bilirubin,Total 0.6 MG/DL (0.2-1.0); Calcium 8.4 MG/DL (8.5-10.1); Total Protein 7.1 G/DL (6.4-8.3)
[2020-02-10 07:08] LABS: Eosinophils 19 % (0-10); Hypochromasia 1+; Lymphocytes 15 % (20-55); Macrocytosis Slight; Platelet Estimate Decreased; Segmented Neutrophils 58 % (50-85); Total Cells Counted 100
[2020-02-10] MEDS: amLODIPine 10 MG TABLET PO SCH (09:49)
[2020-02-10] MEDS: carvediloL 25 MG TABLET PO SCH ×2 (09:49→17:05)
[2020-02-10] MEDS: ISOSORBIDE MONONITRATE 30 MG TABLET PO SCH (09:49)
[2020-02-10] MEDS: POTASSIUM CHLORIDE 20 MEQ TABLET PO SCH ×2 (09:49→20:42)
[2020-02-10] MEDS: ASPIRIN EC 81 MG TABLET PO SCH (09:49)
[2020-02-10] MEDS: MORPHINE 4 MG/1 ML VIAL IV PRN ×2 (10:00→19:46)
[2020-02-10] MEDS: diphenhydrAMINE CAP 25 MG CAPSULE PO PRN ×2 (10:00→19:46)
[2020-02-10] MEDS ORDERED: PNEUMOCOCCAL VACCINE (13 VALENT) 0.5 ML SYRINGE IM ONE (12:00)
[2020-02-10 13:19] LABS: Hepatitis B Core IgM Quant 0.38 Index; Hepatitis B Surface Ag Quant < 0.10 Index; Hepatitis B Surface Ag Result Negative (Negative); Hepatitis C Virus Ab Quant > 11.00 Index; Hepatitis C Virus Ab Result Positive (Negative)
[2020-02-10] MEDS ORDERED: HEPARIN 10,000 UNIT/10 ML VIAL IV SCH (14:30)
[2020-02-10] MEDS: DOXAZOSIN 1 MG TABLET PO SCH (20:42)
[2020-02-11] MEDS: PIPERACILLIN/TAZOBACTAM 3,375 MG in SODIUM CHLORIDE 0.9% 100 ML IV SCH ×2 (03:32→16:11)
[2020-02-11 05:50] LABS: Calcium 8.2 MG/DL (8.5-10.1)
[2020-02-11] MEDS: ASPIRIN EC 81 MG TABLET PO SCH (09:22)
[2020-02-11] MEDS: ISOSORBIDE MONONITRATE 30 MG TABLET PO SCH (09:23)
[2020-02-11] MEDS: amLODIPine 10 MG TABLET PO SCH (09:23)
[2020-02-11] MEDS: POTASSIUM CHLORIDE 20 MEQ TABLET PO SCH ×2 (09:23→21:51)
[2020-02-11] MEDS: carvediloL 25 MG TABLET PO SCH ×2 (09:23→16:11)
[2020-02-11] MEDS: MORPHINE 4 MG/1 ML VIAL IV PRN ×3 (10:09→22:39)
[2020-02-11] MEDS: diphenhydrAMINE CAP 25 MG CAPSULE PO PRN ×2 (10:11→17:21)
[2020-02-11] MEDS: DOCUSATE SODIUM 100 MG CAPSULE PO SCH ×2 (15:32→21:52)
[2020-02-11] MEDS: GABAPENTIN 100 MG CAPSULE PO SCH (16:11)
[2020-02-11] MEDS: POLYETHYLENE GLYCOL POWDER 17 GM PACK PO SCH ×2 (16:11→21:51)
[2020-02-11] MEDS ORDERED: BISACODYL 10 MG SUPP RECTAL ONE (16:29)
[2020-02-11] MEDS: DOXAZOSIN 1 MG TABLET PO SCH (21:51)
[2020-02-11] MEDS: SENNA 8.6 MG TABLET PO SCH (21:53)
[2020-02-11] MEDS: CALCIUM CARBONATE CHEW 500 MG TABLET PO PRN (21:54)
[2020-02-12] MEDS: PIPERACILLIN/TAZOBACTAM 3,375 MG in SODIUM CHLORIDE 0.9% 100 ML IV SCH ×2 (04:06→16:38)
[2020-02-12 05:58] LABS: Calcium 8.4 MG/DL (8.5-10.1)
[2020-02-12] MEDS ORDERED: LACTULOSE 20 GM/30 ML UDCUP PO SCH (09:00)
[2020-02-12] MEDS: carvediloL 25 MG TABLET PO SCH ×2 (09:24→16:39)
[2020-02-12] MEDS: POTASSIUM CHLORIDE 20 MEQ TABLET PO SCH ×2 (09:24→22:36)
[2020-02-12] MEDS: POLYETHYLENE GLYCOL POWDER 17 GM PACK PO SCH ×3 (09:25→22:45)
[2020-02-12] MEDS: ISOSORBIDE MONONITRATE 30 MG TABLET PO SCH (09:25)
[2020-02-12] MEDS: amLODIPine 10 MG TABLET PO SCH (09:25)
[2020-02-12] MEDS: DOCUSATE SODIUM 100 MG CAPSULE PO SCH ×2 (09:25→22:35)
[2020-02-12] MEDS: ASPIRIN EC 81 MG TABLET PO SCH (09:25)
[2020-02-12] MEDS: GABAPENTIN 100 MG CAPSULE PO SCH (09:25)
[2020-02-12] MEDS ORDERED: EPOETIN ALFA-EPBX 2,000 UNIT/ML VIAL SUBCUT ONE (10:00)
[2020-02-12] MEDS: diphenhydrAMINE CAP 25 MG CAPSULE PO PRN ×2 (13:26→22:35)
[2020-02-12] MEDS: MORPHINE 4 MG/1 ML VIAL IV PRN ×2 (13:26→20:34)
[2020-02-12] MEDS: DOXAZOSIN 1 MG TABLET PO SCH (22:33)
[2020-02-12] MEDS: SENNA 8.6 MG TABLET PO SCH (22:34)
[2020-02-12] MEDS: LACTULOSE 20 GM/30 ML UDCUP PO SCH (22:37)
[2020-02-13] MEDS: PIPERACILLIN/TAZOBACTAM 3,375 MG in SODIUM CHLORIDE 0.9% 100 ML IV SCH ×2 (03:27→14:21)
[2020-02-13] MEDS: MORPHINE 4 MG/1 ML VIAL IV PRN ×3 (04:12→17:55)
[2020-02-13] MEDS: diphenhydrAMINE CAP 25 MG CAPSULE PO PRN ×3 (04:12→17:55)
[2020-02-13 06:02] LABS: Basophils % 0.2 % (0.0-0.8); Eosinophils # 0.6 10*3/uL (0.0-0.87); Eosinophils % 10.3 % (0.00-10.9); Hematocrit 26.7 VOL% (35.7-47.0); Immature Granulocytes Absolute 0.06 #; Lymphocytes # 1.3 10*3/uL (1.4-4.0); Lymphocytes % 21.7 % (21.3-54.2); Mean Corpuscular Volume 104.3 FL (87-102); Monocytes % 9.1 % (1.7-12.7); Neutrophils % 57.7 % (38.7-73.9); Platelet Count 134 T/CUMM (130-400); Red Blood Count 2.56 MC/CUMM (3.8-5.5); Red Cell Distribution Width 17.7 % (9.3-17.3); White Blood Count 5.9 T/CUMM (4-12)
[2020-02-13 06:35] LABS: Hypochromasia 1+; Macrocytosis 1+
[2020-02-13 06:36] LABS: Platelet Estimate Adequate; Polychromasia Slight
[2020-02-13 06:49] LABS: Calcium 8.6 MG/DL (8.5-10.1)
[2020-02-13] MEDS: POLYETHYLENE GLYCOL POWDER 17 GM PACK PO SCH ×3 (09:40→22:19)
[2020-02-13] MEDS: carvediloL 25 MG TABLET PO SCH ×2 (09:41→17:55)
[2020-02-13] MEDS: POTASSIUM CHLORIDE 20 MEQ TABLET PO SCH ×2 (09:41→22:17)
[2020-02-13] MEDS: amLODIPine 10 MG TABLET PO SCH (09:41)
[2020-02-13] MEDS: ISOSORBIDE MONONITRATE 30 MG TABLET PO SCH (09:41)
[2020-02-13] MEDS: GABAPENTIN 100 MG CAPSULE PO SCH (09:41)
[2020-02-13] MEDS: LACTULOSE 20 GM/30 ML UDCUP PO SCH ×2 (09:41→22:19)
[2020-02-13] MEDS: DOCUSATE SODIUM 100 MG CAPSULE PO SCH ×2 (09:41→22:19)
[2020-02-13] MEDS: ASPIRIN EC 81 MG TABLET PO SCH (09:41)
[2020-02-13] MEDS: CALCIUM CARBONATE CHEW 500 MG TABLET PO PRN ×2 (17:57→22:17)
[2020-02-13] MEDS: DOXAZOSIN 1 MG TABLET PO SCH (22:16)
[2020-02-13] MEDS: SENNA 8.6 MG TABLET PO SCH (22:19)
[2020-02-14] MEDS: diphenhydrAMINE CAP 25 MG CAPSULE PO PRN (00:10)
[2020-02-14] MEDS: MORPHINE 4 MG/1 ML VIAL IV PRN ×3 (00:12→21:00)
[2020-02-14] MEDS: PIPERACILLIN/TAZOBACTAM 3,375 MG in SODIUM CHLORIDE 0.9% 100 ML IV SCH ×2 (04:14→16:29)
[2020-02-14 06:23] LABS: Basophils % 0.5 % (0.0-0.8); Eosinophils # 0.9 10*3/uL (0.0-0.87); Eosinophils % 15.3 % (0.00-10.9); Hemoglobin 8.3 GM/DL (12.0-16.0); Immature Granulocytes % 1.4 %; Immature Granulocytes Absolute 0.08 #; Lymphocytes # 1.1 10*3/uL (1.4-4.0); Lymphocytes % 19.7 % (21.3-54.2); Mean Corpuscular HGB Conc 29.6 GM/DL (32-36); Mean Corpuscular Volume 103.7 FL (87-102); Monocytes % 11.8 % (1.7-12.7); Neutrophils % 51.3 % (38.7-73.9); Platelet Count 143 T/CUMM (130-400); Red Cell Distribution Width 17.7 % (9.3-17.3); White Blood Count 5.7 T/CUMM (4-12)
[2020-02-14 06:34] LABS: Calcium 8.9 MG/DL (8.5-10.1); Osmolality,Calculated 275.2 MOS/KG (273-304)
[2020-02-14 07:04] LABS: Band Neutrophils 3 % (0-10); Eosinophils 14 % (0-10); Hypochromasia 2+; Lymphocytes 19 % (20-55); Metamyelocytes 3 %; Platelet Estimate Adequate; Segmented Neutrophils 50 % (50-85); Total Cells Counted 100
[2020-02-14] MEDS: ACETAMINOPHEN 325 MG TABLET PO PRN (07:58)
[2020-02-14] MEDS: POLYETHYLENE GLYCOL POWDER 17 GM PACK PO SCH ×4 (09:28→20:56)
[2020-02-14] MEDS: LACTULOSE 20 GM/30 ML UDCUP PO SCH ×2 (09:28→20:55)
[2020-02-14] MEDS: ISOSORBIDE MONONITRATE 30 MG TABLET PO SCH (09:30)
[2020-02-14] MEDS: ASPIRIN EC 81 MG TABLET PO SCH (09:30)
[2020-02-14] MEDS: GABAPENTIN 100 MG CAPSULE PO SCH (09:30)
[2020-02-14] MEDS: DOCUSATE SODIUM 100 MG CAPSULE PO SCH ×2 (09:30→20:55)
[2020-02-14] MEDS: amLODIPine 10 MG TABLET PO SCH (09:31)
[2020-02-14] MEDS: carvediloL 25 MG TABLET PO SCH ×2 (09:31→16:28)
[2020-02-14] MEDS: CALCIUM CARBONATE CHEW 500 MG TABLET PO PRN (14:03)
[2020-02-14] MEDS ORDERED: VANCOMYCIN INJ 500 MG in SODIUM CHLORIDE 0.9% 100 ML IV PRN (16:15)
[2020-02-14] MEDS: SENNA 8.6 MG TABLET PO SCH (20:55)
[2020-02-14] MEDS: DOXAZOSIN 1 MG TABLET PO SCH (20:56)
[2020-02-14] MEDS ORDERED: VANCOMYCIN INJ 1,500 MG in SODIUM CHLORIDE 0.9% 500 ML IV ONE (21:00)
[2020-02-14] MEDS ORDERED: VANCOMYCIN INJ 1,500 MG in SODIUM CHLORIDE 0.9% 250 ML IV ONE (21:00)
[2020-02-15] MEDS: PIPERACILLIN/TAZOBACTAM 3,375 MG in SODIUM CHLORIDE 0.9% 100 ML IV SCH ×2 (04:15→16:26)
[2020-02-15] MEDS: MORPHINE 4 MG/1 ML VIAL IV PRN ×3 (04:16→12:34)
[2020-02-15 05:18] LABS: Basophils % 0.5 % (0.0-0.8); Eosinophils # 0.8 10*3/uL (0.0-0.87); Eosinophils % 13.5 % (0.00-10.9); Hematocrit 28.8 VOL% (35.7-47.0); Hemoglobin 8.7 GM/DL (12.0-16.0); Immature Granulocytes % 1.5 %; Immature Granulocytes Absolute 0.09 #; Lymphocytes # 0.8 10*3/uL (1.4-4.0); Lymphocytes % 13.1 % (21.3-54.2); Mean Corpuscular HGB Conc 30.2 GM/DL (32-36); Mean Corpuscular Volume 103.6 FL (87-102); Mean Platelet Volume 11.2 FL (9.6-12.0); Monocytes % 8.7 % (1.7-12.7); Neutrophils % 62.7 % (38.7-73.9); Platelet Count 152 T/CUMM (130-400); Red Blood Count 2.78 MC/CUMM (3.8-5.5); Red Cell Distribution Width 17.5 % (9.3-17.3); White Blood Count 6.1 T/CUMM (4-12)
[2020-02-15 05:50] LABS: Calcium 8.5 MG/DL (8.5-10.1)
[2020-02-15 06:01] LABS: Anisocytosis 1+; Atypical Lymphocytes Few; Band Neutrophils 2 % (0-10); Eosinophils 15 % (0-10); Lymphocytes 14 % (20-55); Macrocytosis 1+; Platelet Estimate Normal; Segmented Neutrophils 64 % (50-85); Total Cells Counted 100
[2020-02-15 06:02] LABS: Polychromasia Slight
[2020-02-15] MEDS: diphenhydrAMINE CAP 25 MG CAPSULE PO PRN (08:44)
[2020-02-15] MEDS: amLODIPine 10 MG TABLET PO SCH (08:45)
[2020-02-15] MEDS: ISOSORBIDE MONONITRATE 30 MG TABLET PO SCH (08:46)
[2020-02-15] MEDS: carvediloL 25 MG TABLET PO SCH ×2 (08:46→16:27)
[2020-02-15] MEDS: ASPIRIN EC 81 MG TABLET PO SCH (08:46)
[2020-02-15] MEDS: DOCUSATE SODIUM 100 MG CAPSULE PO SCH ×2 (08:46→20:42)
[2020-02-15] MEDS: POLYETHYLENE GLYCOL POWDER 17 GM PACK PO SCH ×3 (08:46→20:42)
[2020-02-15] MEDS: GABAPENTIN 100 MG CAPSULE PO SCH (08:46)
[2020-02-15] MEDS: LACTULOSE 20 GM/30 ML UDCUP PO SCH ×2 (08:46→20:42)
[2020-02-15] MEDS ORDERED: LORazepam 2 MG/1 ML VIAL IV ONE (10:39)
[2020-02-15] MEDS: HEPARIN 5,000 UNIT/1 ML VIAL SUBCUT SCH (17:38)
[2020-02-15] MEDS: DOXAZOSIN 1 MG TABLET PO SCH (20:41)
[2020-02-15] MEDS: SENNA 8.6 MG TABLET PO SCH (20:43)
[2020-02-16] MEDS: MORPHINE 4 MG/1 ML VIAL IV PRN ×3 (00:14→18:15)
[2020-02-16] MEDS: PIPERACILLIN/TAZOBACTAM 3,375 MG in SODIUM CHLORIDE 0.9% 100 ML IV SCH ×2 (04:13→14:05)
[2020-02-16] MEDS: HEPARIN 5,000 UNIT/1 ML VIAL SUBCUT SCH ×2 (05:41→17:58)
[2020-02-16 06:15] LABS: Basophils % 0.5 % (0.0-0.8); Eosinophils # 0.8 10*3/uL (0.0-0.87); Eosinophils % 13.3 % (0.00-10.9); Hematocrit 27.2 VOL% (35.7-47.0); Immature Granulocytes Absolute 0.17 #; Lymphocytes # 1.2 10*3/uL (1.4-4.0); Lymphocytes % 21.5 % (21.3-54.2); Mean Corpuscular HGB Conc 29.4 GM/DL (32-36); Mean Corpuscular Volume 104.2 FL (87-102); Mean Platelet Volume 11.3 FL (9.6-12.0); Monocytes % 10.5 % (1.7-12.7); Neutrophils % 51.2 % (38.7-73.9); Platelet Count 141 T/CUMM (130-400); Red Blood Count 2.61 MC/CUMM (3.8-5.5); Red Cell Distribution Width 17.6 % (9.3-17.3); White Blood Count 5.7 T/CUMM (4-12)
[2020-02-16 08:07] LABS: Anisocytosis 2+; Band Neutrophils 5 % (0-10); Eosinophils 13 % (0-10); Lymphocytes 21 % (20-55); Myelocytes 1 %; Platelet Estimate Adequate; Polychromasia Slight; Segmented Neutrophils 50 % (50-85); Tear Drop Cells Few; Total Cells Counted 100
[2020-02-16] MEDS: ISOSORBIDE MONONITRATE 30 MG TABLET PO SCH (09:09)
[2020-02-16] MEDS: GABAPENTIN 100 MG CAPSULE PO SCH (09:09)
[2020-02-16] MEDS: amLODIPine 10 MG TABLET PO SCH (09:09)
[2020-02-16] MEDS: carvediloL 25 MG TABLET PO SCH ×2 (09:09→17:58)
[2020-02-16] MEDS: ASPIRIN EC 81 MG TABLET PO SCH (09:09)
[2020-02-16] MEDS: cloNIDine 0.2 MG/24 HR PATCH TRANSDERM SCH (09:09)
[2020-02-16] MEDS: DOCUSATE SODIUM 100 MG CAPSULE PO SCH ×2 (09:13→20:56)
[2020-02-16] MEDS: LACTULOSE 20 GM/30 ML UDCUP PO SCH ×2 (09:13→20:56)
[2020-02-16] MEDS: POLYETHYLENE GLYCOL POWDER 17 GM PACK PO SCH ×3 (09:13→20:56)
[2020-02-16] MEDS: diphenhydrAMINE CAP 25 MG CAPSULE PO PRN (18:15)
[2020-02-16] MEDS: HydrOXYzine PAMOATE 25 MG CAPSULE PO PRN (20:51)
[2020-02-16] MEDS: DOXAZOSIN 1 MG TABLET PO SCH (20:51)
[2020-02-16] MEDS: SENNA 8.6 MG TABLET PO SCH (20:57)
[2020-02-17] MEDS: POLYETHYLENE GLYCOL POWDER 17 GM PACK PO SCH ×5 (01:38→20:36)
[2020-02-17] MEDS: MORPHINE 4 MG/1 ML VIAL IV PRN ×4 (03:35→20:35)
[2020-02-17 05:32] LABS: Basophils % 0.5 % (0.0-0.8); Eosinophils # 0.6 10*3/uL (0.0-0.87); Eosinophils % 10.3 % (0.00-10.9); Hematocrit 26.1 VOL% (35.7-47.0); Hemoglobin 7.7 GM/DL (12.0-16.0); Immature Granulocytes % 3.1 %; Immature Granulocytes Absolute 0.19 #; Lymphocytes # 1.2 10*3/uL (1.4-4.0); Lymphocytes % 19.9 % (21.3-54.2); Mean Corpuscular HGB Conc 29.5 GM/DL (32-36); Mean Corpuscular Volume 104.4 FL (87-102); Monocytes % 10.6 % (1.7-12.7); NRBC # 0.02 10*3/uL; Neutrophils % 55.6 % (38.7-73.9); Platelet Count 134 T/CUMM (130-400); Red Cell Distribution Width 17.2 % (9.3-17.3); White Blood Count 6.1 T/CUMM (4-12)
[2020-02-17 05:47] LABS: Calcium 8.7 MG/DL (8.5-10.1); Osmolality,Calculated 276.5 MOS/KG (273-304)
[2020-02-17 05:51] LABS: Hypochromasia 1+; Macrocytosis 1+
[2020-02-17 05:52] LABS: Platelet Estimate Adequate; Polychromasia Slight
[2020-02-17] MEDS: HEPARIN 5,000 UNIT/1 ML VIAL SUBCUT SCH ×3 (06:36→17:16)
[2020-02-17] MEDS: ONDANSETRON 4 MG/2 ML VIAL IV PRN ×3 (08:23→20:35)
[2020-02-17] MEDS: LACTULOSE 20 GM/30 ML UDCUP PO SCH ×2 (08:24→20:35)
[2020-02-17] MEDS: diphenhydrAMINE CAP 25 MG CAPSULE PO PRN ×2 (08:25→16:14)
[2020-02-17] MEDS: GABAPENTIN 100 MG CAPSULE PO SCH (08:26)
[2020-02-17] MEDS: DOCUSATE SODIUM 100 MG CAPSULE PO SCH ×2 (08:26→20:36)
[2020-02-17] MEDS: ISOSORBIDE MONONITRATE 30 MG TABLET PO SCH (08:26)
[2020-02-17] MEDS: ASPIRIN EC 81 MG TABLET PO SCH (08:26)
[2020-02-17] MEDS: SKIN HEALING OINT (AQUAPHOR) 50 GM TUBE TOP PRN (08:27)
[2020-02-17] MEDS: carvediloL 25 MG TABLET PO SCH ×2 (08:27→16:14)
[2020-02-17] MEDS: amLODIPine 10 MG TABLET PO SCH (08:29)
[2020-02-17] MEDS ORDERED: VANCOMYCIN INJ 500 MG in SODIUM CHLORIDE 0.9% 100 ML IV ONE (17:00)
[2020-02-17] MEDS: DOXAZOSIN 1 MG TABLET PO SCH (20:34)
[2020-02-17] MEDS: HydrOXYzine PAMOATE 25 MG CAPSULE PO PRN (20:35)
[2020-02-17] MEDS: SENNA 8.6 MG TABLET PO SCH (20:36)
[2020-02-18] MEDS: diphenhydrAMINE CAP 25 MG CAPSULE PO PRN ×2 (00:39→08:23)
[2020-02-18] MEDS: ONDANSETRON 4 MG/2 ML VIAL IV PRN (04:59)
[2020-02-18] MEDS: HEPARIN 5,000 UNIT/1 ML VIAL SUBCUT SCH ×2 (04:59→17:09)
[2020-02-18] MEDS: MORPHINE 4 MG/1 ML VIAL IV PRN (04:59)
[2020-02-18 06:01] LABS: Basophils % 0.4 % (0.0-0.8); Eosinophils # 0.5 10*3/uL (0.0-0.87); Hematocrit 25.5 VOL% (35.7-47.0); Hemoglobin 7.6 GM/DL (12.0-16.0); Immature Granulocytes % 1.4 %; Immature Granulocytes Absolute 0.08 #; Lymphocytes % 18.7 % (21.3-54.2); Mean Corpuscular HGB Conc 29.8 GM/DL (32-36); Mean Corpuscular Volume 104.9 FL (87-102); Mean Platelet Volume 11.7 FL (9.6-12.0); NRBC # 0.02 10*3/uL; Neutrophils % 59.5 % (38.7-73.9); Red Blood Count 2.43 MC/CUMM (3.8-5.5); Red Cell Distribution Width 17.5 % (9.3-17.3); White Blood Count 5.6 T/CUMM (4-12)
[2020-02-18 06:03] LABS: Platelet Count 119 T/CUMM (130-400)
[2020-02-18 06:18] LABS: Calcium 8.3 MG/DL (8.5-10.1); Osmolality,Calculated 273.2 MOS/KG (273-304)
[2020-02-18 06:31] LABS: Hypochromasia 2+; Platelet Estimate Decreased
[2020-02-18 06:32] LABS: Macrocytosis Slight; Polychromasia Slight
[2020-02-18] MEDS: ASPIRIN EC 81 MG TABLET PO SCH (08:22)
[2020-02-18] MEDS: LACTULOSE 20 GM/30 ML UDCUP PO SCH (08:23)
[2020-02-18] MEDS: ISOSORBIDE MONONITRATE 30 MG TABLET PO SCH (08:23)
[2020-02-18] MEDS: carvediloL 25 MG TABLET PO SCH ×2 (08:23→17:09)
[2020-02-18] MEDS: GABAPENTIN 100 MG CAPSULE PO SCH (08:23)
[2020-02-18] MEDS: amLODIPine 10 MG TABLET PO SCH (08:23)
[2020-02-18] MEDS: DOCUSATE SODIUM 100 MG CAPSULE PO SCH (08:23)
[2020-02-18] MEDS: POLYETHYLENE GLYCOL POWDER 17 GM PACK PO SCH ×2 (08:24→15:18)
[2020-02-18] MEDS: ACETAMINOPHEN 325 MG TABLET PO PRN (12:37)
[2020-02-18 15:47] VITALS: BP 139/81
== END 2020-02-18 17:53 | disposition home health service (06) | DRG 194 ==
LOC: EDUNIT# → EDBD → N.EDINP 20:26 → N.ED 20:26 → SUATTDRO 22:58 → N.EDINP 02-09 00:39 → N.TELEN 02-09 01:31 → SUATTDRO 02-11 13:32
PROVIDERS: ADMIT Family Medicine; ATTEND Internal Medicine

== ENCOUNTER 2020-02-24 22:34 | Inpatient (IN) ==
[2020-02-24] MEDS ORDERED: MORPHINE 4 MG/1 ML VIAL IV STA (23:35)
[2020-02-24] MEDS ORDERED: ONDANSETRON 4 MG/2 ML VIAL IV ONE (23:35)
[2020-02-24 23:55] LABS: Basophils % 0.2 % (0.0-0.8); Eosinophils # 0.8 10*3/uL (0.0-0.87); Eosinophils % 11.7 % (0.00-10.9); Hemoglobin 7.7 GM/DL (12.0-16.0); Immature Granulocytes % 0.8 %; Immature Granulocytes Absolute 0.05 #; Lymphocytes # 1.2 10*3/uL (1.4-4.0); Mean Corpuscular HGB Conc 30.8 GM/DL (32-36); Mean Corpuscular Volume 101.2 FL (87-102); Monocytes % 8.8 % (1.7-12.7); NRBC # 0.03 10*3/uL; Neutrophils % 59.5 % (38.7-73.9); Platelet Count 160 T/CUMM (130-400); Red Blood Count 2.47 MC/CUMM (3.8-5.5); Red Cell Distribution Width 17.5 % (9.3-17.3); White Blood Count 6.5 T/CUMM (4-12)
[2020-02-25 00:19] LABS: Bilirubin,Total 0.8 MG/DL (0.2-1.0); Calcium 8.6 MG/DL (8.5-10.1); Osmolality,Calculated 275.8 MOS/KG (273-304); Total Protein 7.8 G/DL (6.4-8.3)
[2020-02-25 00:28] LABS: Ferritin 677.3 ng/ml (8-252)
[2020-02-25] MEDS ORDERED: ONDANSETRON 4 MG/2 ML VIAL IV PRN (01:59)
[2020-02-25] MEDS ORDERED: DEXTROSE 50% 25 GM/50 ML VIAL IV PRN (01:59)
[2020-02-25] MEDS ORDERED: GLUCAGON 1 MG VIAL IM PRN (01:59)
[2020-02-25 02:09] LABS: Eosinophils 8 % (0-10); Lymphocytes 12 % (20-55); Segmented Neutrophils 72 % (50-85); Total Cells Counted 100
[2020-02-25 02:10] LABS: Acanthocytes Few; Anisocytosis 1+; Macrocytosis 1+; Platelet Estimate Normal; Target Cells Few
[2020-02-25] MEDS ORDERED: MORPHINE 4 MG/1 ML VIAL IV ONE (03:25)
[2020-02-25 03:33] LABS: Basophils % 0.2 % (0.0-0.8); Eosinophils # 0.8 10*3/uL (0.0-0.87); Eosinophils % 13.2 % (0.00-10.9); Hematocrit 25.1 VOL% (35.7-47.0); Hemoglobin 7.4 GM/DL (12.0-16.0); Immature Granulocytes % 0.7 %; Immature Granulocytes Absolute 0.04 #; Lymphocytes # 1.1 10*3/uL (1.4-4.0); Lymphocytes % 19.1 % (21.3-54.2); Mean Corpuscular HGB Conc 29.5 GM/DL (32-36); Mean Corpuscular Volume 104.1 FL (87-102); Mean Platelet Volume 10.5 FL (9.6-12.0); Monocytes % 9.3 % (1.7-12.7); NRBC # 0.03 10*3/uL; Neutrophils % 57.5 % (38.7-73.9); Platelet Count 168 T/CUMM (130-400); Red Blood Count 2.41 MC/CUMM (3.8-5.5); Red Cell Distribution Width 17.6 % (9.3-17.3); White Blood Count 5.9 T/CUMM (4-12)
[2020-02-25 04:01] LABS: Bilirubin,Direct 0.18 MG/DL (0.0-0.20); Bilirubin,Indirect 1.1 MG/DL (0.0-1.0); Bilirubin,Total 1.3 MG/DL (0.2-1.0); Total Protein 7.3 G/DL (6.4-8.3)
[2020-02-25 04:39] LABS: Albumin 2.8 G/DL (3.4-5.0); Calcium 8.5 MG/DL (8.5-10.1); Osmolality,Calculated 277.7 MOS/KG (273-304)
[2020-02-25 04:58] LABS: Anisocytosis 1+; Eosinophils 14 % (0-10); Lymphocytes 24 % (20-55); Nucleated Red Blood Cells 2 (0-5); Segmented Neutrophils 51 % (50-85); Total Cells Counted 100
[2020-02-25 04:59] LABS: Hypochromasia 1+; Macrocytosis 1+; Platelet Estimate Normal
[2020-02-25] MEDS: amLODIPine 10 MG TABLET PO SCH (08:49)
[2020-02-25] MEDS: HEPARIN 5,000 UNIT/1 ML VIAL SUBCUT SCH ×3 (08:49→23:52)
[2020-02-25] MEDS: carvediloL 25 MG TABLET PO SCH ×2 (08:49→21:44)
[2020-02-25] MEDS: ASPIRIN EC 81 MG TABLET PO SCH (08:49)
[2020-02-25] MEDS: ACETAMINOPHEN 325 MG TABLET PO PRN (17:40)
[2020-02-25] MEDS: diphenhydrAMINE CAP 25 MG CAPSULE PO PRN (17:46)
[2020-02-25] MEDS: MORPHINE 4 MG/1 ML VIAL IV PRN (23:52)
[2020-02-26] MEDS ORDERED: EPOETIN ALFA-EPBX 10,000 UNIT/ML VIAL IV PRN (10:34)
[2020-02-26] MEDS: ASPIRIN EC 81 MG TABLET PO SCH (11:57)
[2020-02-26] MEDS: amLODIPine 10 MG TABLET PO SCH (11:57)
[2020-02-26] MEDS: carvediloL 25 MG TABLET PO SCH ×2 (11:57→20:23)
[2020-02-26] MEDS: HEPARIN 5,000 UNIT/1 ML VIAL SUBCUT SCH ×2 (11:57→20:23)
[2020-02-26] MEDS: MORPHINE 4 MG/1 ML VIAL IV PRN ×2 (13:09→20:23)
[2020-02-26 16:43] LABS: Barbiturates Screen,Urine Negative (Negative); Benzodiazepines Screen,Urine Negative (Negative); Cannabinoid Screen,Urine Negative (Negative); Opiate Screen,Urine Positive (Negative); Phencyclidine Screen,Urine Negative (Negative)
[2020-02-26] MEDS ORDERED: VANCOMYCIN INJ 500 MG in SODIUM CHLORIDE 0.9% 100 ML IV PRN (17:00)
[2020-02-26] MEDS ORDERED: VANCOMYCIN INJ 1,750 MG in SODIUM CHLORIDE 0.9% 500 ML IV ONE (17:00)
[2020-02-26] MEDS: diphenhydrAMINE CAP 25 MG CAPSULE PO PRN (21:09)
[2020-02-27] MEDS: MORPHINE 4 MG/1 ML VIAL IV PRN ×3 (04:18→22:36)
[2020-02-27] MEDS: HEPARIN 5,000 UNIT/1 ML VIAL SUBCUT SCH ×3 (04:18→20:25)
[2020-02-27] MEDS: amLODIPine 10 MG TABLET PO SCH (08:41)
[2020-02-27] MEDS: ASPIRIN EC 81 MG TABLET PO SCH (08:41)
[2020-02-27] MEDS: carvediloL 25 MG TABLET PO SCH ×2 (08:41→20:25)
[2020-02-27] MEDS: diphenhydrAMINE CAP 25 MG CAPSULE PO PRN (14:53)
[2020-02-27] MEDS ORDERED: ceFAZolin 2,000 MG in PREMIX 1 EACH IV ONE (15:00)
[2020-02-27] MEDS: LACTULOSE 20 GM/30 ML UDCUP PO PRN (17:45)
[2020-02-28] MEDS: HEPARIN 5,000 UNIT/1 ML VIAL SUBCUT SCH ×3 (04:29→20:54)
[2020-02-28] MEDS: ASPIRIN EC 81 MG TABLET PO SCH (09:10)
[2020-02-28] MEDS: carvediloL 25 MG TABLET PO SCH ×2 (14:10→20:54)
[2020-02-28] MEDS: amLODIPine 10 MG TABLET PO SCH (14:10)
[2020-02-28] MEDS: MORPHINE 4 MG/1 ML VIAL IV PRN ×2 (14:19→23:13)
[2020-02-28] MEDS: diphenhydrAMINE CAP 25 MG CAPSULE PO PRN (14:19)
[2020-02-28] MEDS ORDERED: ceFAZolin 3,000 MG in SYRINGE 1 EACH IV SCH (17:00)
[2020-02-29] MEDS: MORPHINE 4 MG/1 ML VIAL IV PRN ×4 (04:02→20:51)
[2020-02-29] MEDS: HEPARIN 5,000 UNIT/1 ML VIAL SUBCUT SCH ×3 (04:07→20:43)
[2020-02-29] MEDS ORDERED: propofoL 200 MG/20 ML VIAL IV ONE (09:04)
[2020-02-29] MEDS ORDERED: MIDAZOLAM 2 MG/2 ML VIAL ONE (09:05)
[2020-02-29] MEDS ORDERED: LIDOCAINE 1%/EPI INJ 20 ML VIAL ONE (09:21)
[2020-02-29] MEDS: carvediloL 25 MG TABLET PO SCH ×2 (09:37→20:43)
[2020-02-29] MEDS: ASPIRIN EC 81 MG TABLET PO SCH (09:37)
[2020-02-29] MEDS: amLODIPine 10 MG TABLET PO SCH (09:37)
[2020-02-29] MEDS: diphenhydrAMINE CAP 25 MG CAPSULE PO PRN (20:47)
[2020-03-01] MEDS: ACETAMINOPHEN 325 MG TABLET PO PRN
[2020-03-01] MEDS: MORPHINE 4 MG/1 ML VIAL IV PRN ×4 (01:15→21:43)
[2020-03-01] MEDS: HEPARIN 5,000 UNIT/1 ML VIAL SUBCUT SCH ×2 (04:25→15:13)
[2020-03-01 05:28] LABS: Basophils % 0.2 % (0.0-0.8); Eosinophils # 0.5 10*3/uL (0.0-0.87); Eosinophils % 11.1 % (0.00-10.9); Hematocrit 23.2 VOL% (35.7-47.0); Hemoglobin 7.1 GM/DL (12.0-16.0); Immature Granulocytes % 0.7 %; Immature Granulocytes Absolute 0.03 #; Lymphocytes # 1.1 10*3/uL (1.4-4.0); Lymphocytes % 26.2 % (21.3-54.2); Mean Corpuscular HGB Conc 30.6 GM/DL (32-36); Mean Corpuscular Volume 102.7 FL (87-102); Monocytes % 6.8 % (1.7-12.7); Platelet Count 120 T/CUMM (130-400); Red Blood Count 2.26 MC/CUMM (3.8-5.5); Red Cell Distribution Width 17.2 % (9.3-17.3); White Blood Count 4.1 T/CUMM (4-12)
[2020-03-01 05:31] LABS: Calcium 8.5 MG/DL (8.5-10.1); Osmolality,Calculated 279.2 MOS/KG (273-304)
[2020-03-01 05:58] LABS: Band Neutrophils 2 % (0-10); Eosinophils 11 % (0-10); Lymphocytes 22 % (20-55); Platelet Estimate Normal; Segmented Neutrophils 56 % (50-85); Total Cells Counted 100
[2020-03-01 05:59] LABS: Hypochromasia 1+; Macrocytosis Slight
[2020-03-01] MEDS ORDERED: BISACODYL 5 MG TABLET PO ONE (09:36)
[2020-03-01] MEDS: ASPIRIN EC 81 MG TABLET PO SCH (10:23)
[2020-03-01] MEDS: amLODIPine 10 MG TABLET PO SCH (10:23)
[2020-03-01] MEDS: carvediloL 25 MG TABLET PO SCH ×2 (10:23→21:21)
[2020-03-01] MEDS: diphenhydrAMINE CAP 25 MG CAPSULE PO PRN ×2 (11:51→21:33)
[2020-03-01] MEDS: LACTULOSE 20 GM/30 ML UDCUP PO PRN ×2 (13:52→21:33)
[2020-03-01 15:19] LABS: Hematocrit 21.7 VOL% (35.7-47.0); Hemoglobin 6.6 GM/DL (12.0-16.0)
[2020-03-01] MEDS: DOCUSATE SODIUM 100 MG CAPSULE PO SCH (21:19)
[2020-03-02] MEDS: MORPHINE 4 MG/1 ML VIAL IV PRN ×2 (03:29→08:58)
[2020-03-02 05:11] LABS: Basophils % 0.2 % (0.0-0.8); Eosinophils # 0.5 10*3/uL (0.0-0.87); Eosinophils % 10.2 % (0.00-10.9); Hematocrit 22.7 VOL% (35.7-47.0); Hemoglobin 6.9 GM/DL (12.0-16.0); Immature Granulocytes % 0.8 %; Immature Granulocytes Absolute 0.04 #; Lymphocytes # 1.2 10*3/uL (1.4-4.0); Lymphocytes % 23.1 % (21.3-54.2); Mean Corpuscular HGB Conc 30.4 GM/DL (32-36); Mean Corpuscular Volume 102.3 FL (87-102); Mean Platelet Volume 11.2 FL (9.6-12.0); Monocytes % 3.8 % (1.7-12.7); Neutrophils % 61.9 % (38.7-73.9); Platelet Count 141 T/CUMM (130-400); Red Blood Count 2.22 MC/CUMM (3.8-5.5); Red Cell Distribution Width 16.9 % (9.3-17.3)
[2020-03-02 05:33] LABS: Calcium 8.6 MG/DL (8.5-10.1); Osmolality,Calculated 286.1 MOS/KG (273-304)
[2020-03-02 05:50] LABS: Band Neutrophils 1 % (0-10); Eosinophils 12 % (0-10); Hypochromasia 2+; Lymphocytes 13 % (20-55); Platelet Estimate Adequate; Segmented Neutrophils 67 % (50-85); Total Cells Counted 100
[2020-03-02 05:51] LABS: Macrocytosis Slight
[2020-03-02] MEDS: ACETAMINOPHEN 325 MG TABLET PO PRN (08:57)
[2020-03-02] MEDS: DOCUSATE SODIUM 100 MG CAPSULE PO SCH ×2 (08:57→21:24)
[2020-03-02] MEDS: carvediloL 25 MG TABLET PO SCH ×2 (08:58→21:17)
[2020-03-02] MEDS: diphenhydrAMINE CAP 25 MG CAPSULE PO PRN (08:58)
[2020-03-02] MEDS: amLODIPine 10 MG TABLET PO SCH (08:58)
[2020-03-02] MEDS ORDERED: SODIUM CHLORIDE 0.9% 1,000 ML IV PRN ×3 (09:30→17:04)
[2020-03-02] MEDS: HYDROmorphone 2 MG/1 ML VIAL IV PRN ×2 (12:40→23:49)
[2020-03-03] MEDS: diphenhydrAMINE CAP 25 MG CAPSULE PO PRN ×2 (00:32→14:17)
[2020-03-03] MEDS: HYDROmorphone 2 MG/1 ML VIAL IV PRN ×3 (04:59→20:36)
[2020-03-03 06:05] LABS: Hemoglobin 7.8 GM/DL (12.0-16.0)
[2020-03-03 06:07] LABS: Basophils % 0.3 % (0.0-0.8); Eosinophils # 0.3 10*3/uL (0.0-0.87); Eosinophils % 10.6 % (0.00-10.9); Hematocrit 25.2 VOL% (35.7-47.0); Hemoglobin 7.8 GM/DL (12.0-16.0); Immature Granulocytes Absolute 0.03 #; Lymphocytes # 0.9 10*3/uL (1.4-4.0); Lymphocytes % 27.7 % (21.3-54.2); Mean Corpuscular Volume 101.2 FL (87-102); Monocytes % 5.5 % (1.7-12.7); Neutrophils % 54.9 % (38.7-73.9); Platelet Count 144 T/CUMM (130-400); Red Blood Count 2.49 MC/CUMM (3.8-5.5); Red Cell Distribution Width 16.3 % (9.3-17.3); White Blood Count 3.1 T/CUMM (4-12)
[2020-03-03 06:21] LABS: Calcium 8.5 MG/DL (8.5-10.1); Osmolality,Calculated 284.7 MOS/KG (273-304)
[2020-03-03] MEDS ORDERED: BUPIVACAINE MPF 0.25% 30 ML VIAL ONE (06:24)
[2020-03-03] MEDS ORDERED: HEPARIN 5,000 UNIT/1 ML VIAL ONE (06:24)
[2020-03-03] MEDS ORDERED: LIDOCAINE 1%/EPI INJ 20 ML VIAL ONE (06:24)
[2020-03-03 06:29] LABS: Eosinophils 11 % (0-10); Hypochromasia 1+; Lymphocytes 24 % (20-55); Nucleated Red Blood Cells 1 (0-5); Segmented Neutrophils 58 % (50-85); Total Cells Counted 100
[2020-03-03 06:30] LABS: Macrocytosis Slight
[2020-03-03] MEDS ORDERED: SODIUM CHLORIDE 0.9% 250 ML IV SCH (07:30)
[2020-03-03] MEDS ORDERED: MIDAZOLAM 2 MG/2 ML VIAL ONE (08:04)
[2020-03-03] MEDS ORDERED: KETAMINE 500 MG/10 ML VIAL ONE (08:04)
[2020-03-03] MEDS: DOCUSATE SODIUM 100 MG CAPSULE PO SCH ×2 (14:17→20:33)
[2020-03-03] MEDS: carvediloL 25 MG TABLET PO SCH ×2 (14:17→20:33)
[2020-03-03] MEDS: amLODIPine 10 MG TABLET PO SCH (14:17)
[2020-03-04] MEDS: diphenhydrAMINE CAP 25 MG CAPSULE PO PRN ×2 (00:06→12:34)
[2020-03-04] MEDS: HYDROmorphone 2 MG/1 ML VIAL IV PRN ×2 (03:25→12:34)
[2020-03-04 05:20] LABS: Basophils % 0.3 % (0.0-0.8); Eosinophils # 0.3 10*3/uL (0.0-0.87); Eosinophils % 6.6 % (0.00-10.9); Hematocrit 24.5 VOL% (35.7-47.0); Hemoglobin 7.7 GM/DL (12.0-16.0); Immature Granulocytes % 0.5 %; Immature Granulocytes Absolute 0.02 #; Lymphocytes # 0.9 10*3/uL (1.4-4.0); Lymphocytes % 22.8 % (21.3-54.2); Mean Corpuscular HGB Conc 31.4 GM/DL (32-36); Mean Corpuscular Volume 99.6 FL (87-102); Mean Platelet Volume 10.9 FL (9.6-12.0); Monocytes % 7.1 % (1.7-12.7); Neutrophils % 62.7 % (38.7-73.9); Platelet Count 150 T/CUMM (130-400); Red Blood Count 2.46 MC/CUMM (3.8-5.5); Red Cell Distribution Width 16.6 % (9.3-17.3); White Blood Count 3.9 T/CUMM (4-12)
[2020-03-04 05:55] LABS: Calcium 8.7 MG/DL (8.5-10.1); Osmolality,Calculated 278.2 MOS/KG (273-304)
[2020-03-04] MEDS ORDERED: ceFAZolin 2,000 MG in SYRINGE 1 EACH IV ONE (10:58)
[2020-03-04] MEDS: carvediloL 25 MG TABLET PO SCH (12:06)
[2020-03-04] MEDS: amLODIPine 10 MG TABLET PO SCH (12:06)
[2020-03-04] MEDS: DOCUSATE SODIUM 100 MG CAPSULE PO SCH (12:06)
[2020-03-04] MEDS ORDERED: PANTOPRAZOLE 40 MG TABLET PO SCH (12:39)
[2020-03-04] MEDS ORDERED: ALUMINUM/MAGNES/SIMETH MAX STR 30 ML UDCUP PO PRN (12:39)
[2020-03-04 12:48] VITALS: BP 147/72
== END 2020-03-04 15:26 | disposition home or self-care (01) | DRG 194 ==
LOC: EDUNIT# → EDBD → N.ED 22:34 → N.EDINP 22:34 → SUATTDRO 02-25 01:59 → N.TELEN 02-25 14:03 → SUATTDRO 02-27 09:23
PROVIDERS: ADMIT Internal Medicine; ATTEND Internal Medicine